=== PATIENT | male | born 1935 | race Caucasian/White ===

== ENCOUNTER → 2016-08-20 | Outpatient (CLI) | payer BC ==
[~2016-08-20] MED LIST: ALLO100T PO; ALPH600C2 PO; AMLO5TAB2 PO; ASPI-589 PO; ASPI325T45 PO; BRIM0.2S OPB; CLB/200 PO; CYAN10005 PO; DOXA2TAB PO; LMGOPS OP; LSN10 PO; POTA20TA16 PO; SIMV10TA2 PO; TNR25 PO; TRIA37.5 PO
[2016-08-20 13:52] LABS: BASO % 0.4 %; BASO ABS # 0.03 K/uL (0-0.2); COMPLETE YES; HEMATOCRIT 43.6 % (42-52); IG% 0.3 %; LYMPH % 20.2 %; LYMPH ABS # 1.49 K/uL (1.2-3.4); MEAN CELL VOLUME 89.2 fL (80-100); MEAN CORPUSCULAR HEMOGLOBIN 30.9 pg (25-34); MEAN CORPUSCULAR HGB CONC 34.6 g/dl (32-36); MEAN PLATELET VOLUME 10.8 fL (7.4-10.4); NEUT % 67.1 %; PLATELET COUNT 198 K/uL (130-400); RED BLOOD COUNT 4.89 M/uL (4.7-6.1); WHITE BLOOD COUNT 7.39 K/uL (4.8-10.8)
[2016-08-20 14:33] LABS: ALT/SGPT 28 U/L (12-78); AST/SGOT 15 U/L (15-37); BLOOD UREA NITROGEN 23 mg/dl (7-18); BUN/CREATININE RATIO 17.9 (10-20); CARBON DIOXIDE 32 mmol/L (21-32); CHLORIDE 101 mmol/L (98-107); GLUCOSE 115 mg/dl (70-99); MAGNESIUM 2.1 mg/dl (1.8-2.4); POTASSIUM 3.5 mmol/L (3.5-5.1); SODIUM 139 mmol/L (136-145)
[2016-08-20 14:41] LABS: ALB/GLOB RATIO 1.2 (0.9-2); ALKALINE PHOSPHATASE 55 U/L (45-117); CHOLESTEROL 135 mg/dl (0-200); CHOLESTEROL/HDL RATIO 2.7; HDL CHOLESTEROL 50 mg/dl; LDL CHOLESTEROL CALCULATED 59 mg/dl; PROSTATE SPECIFIC ANTIGEN 0.025 ng/ml (0.000-4.000); TRIGLYCERIDES 132 mg/dl (0-150); URIC ACID 5.6 mg/dl (2.6-7.2); VERY LOW DENSITY LIPOPROT CALC 26 mg/dl
== END | disposition home or self-care (01) ==
LOC: C.LABBC 09:43
PROVIDERS: ATTEND Family Medicine
DX: I10 Essential (primary) hypertension (principal); I25.10 Atherosclerotic heart disease of native coronary artery without angina pectoris; E53.8 Deficiency of other specified B group vitamins; C61 Malignant neoplasm of prostate; M10.9 Gout, unspecified

== ENCOUNTER → 2016-09-05 | Outpatient (CLI) | payer BC ==
--- NOTE | 2016-09-05 13:45 | DIAGNOSTIC IMAGING REPORT ---
MRI THE LEFT HIP NO CONTRAST CLINICAL HISTORY: Left hip pain COMPARISON STUDY: Conventional radiographic study dated 11/17/2014 FINDINGS: Imaging was performed in sagittal, coronal, and axial planes. There is artifact from surgical clips within the pelvis. There are no areas of marrow replacement to indicate metastatic disease. There are no areas of marrow edema to indicate occult fracture or bone bruise. There is no aggressive avascular necrosis. There is no pathologic joint effusion. There is minimal left peritrochanteric soft tissue edema. IMPRESSION: 1. No evidence of metastatic disease 2. No evidence of occult fracture 3. No evidence of a joint effusion 4. Very minor left-sided peritrochanteric soft tissue edema Electronically signed by: José Miguel Kumar M.D. 09/05/2016 1:44 PM Dictated Date/Time: 09/05/2016 1:41 PM
== END | disposition home or self-care (01) ==
LOC: C.MRIBC 12:26
PROVIDERS: ATTEND Orthopaedic Surgery
DX: M25.552 Pain in left hip (principal)

== ENCOUNTER 2016-10-25 16:38 | Emergency (ER) | payer BC ==
[~2016-10-25] VITALS: Ht 172.7 cm; Wt 93.3 kg
[~2016-10-25 16:38] MED LIST changes: -ASPI-589 PO; -CLB/200 PO; -DOXA2TAB PO; -POTA20TA16 PO
[2016-10-25 16:47] VITALS: TEMP 36.7; Ht 172.7 cm; Wt 93.3 kg
[2016-10-25] MEDS ORDERED: POTA20TA16 PO (17:56)
[2016-10-25] MEDS ORDERED: CLB/200 PO (17:56)
[2016-10-25] MEDS ORDERED: DOXA2TAB PO (17:56)
[2016-10-25] MEDS ORDERED: ASPI-589 PO (17:56)
--- NOTE | 2016-10-25 18:18 | EMERGENCY ROOM VISIT NOTE ---
History Report prepared by Nico: Autumn Barron Under the Supervision of: Dr. Catherine Dodd D.O. First contact with patient: 17:44 Chief Complaint: HYPERTENSION Stated Complaint: VERY HIGH BLOOD PRESSURE History of Present Illness The patient is an 81 year old male who presents to the Emergency Room with complaints of persistent hypertension that started SCARFER. Associated symptoms include increased fatigue, increased urination, and headaches. The patient was recently placed on a new hypertension medication by Dr. See ([facility]) . He states that he was at the grocery store yesterday when he decided to use a blood pressure machine to check his blood pressure since starting this new medication. His pressure was 159/72 at this time. When the patient got home, he rechecked his blood pressure twice more which read 189/117 and 205/110. The patient has been treated for hypertension for the past 26 years. His last recorded blood pressure in the ED is 168/84. The patient denies chest pain, shortness of breath, or any additional associated symptoms. Source of History: patient Onset: SCARFER Position: other (Global ) Timing: other (Persistent ) Modifying Factors (Worsening): other (None) Associated Symptoms: + fatigue, + headache, No SOB, No chest pain Review of Systems See above for pertinent positives & negatives. A total of 10 systems reviewed and were otherwise negative. Past Medical & Surgical Medical Problems: (1) HTN (hypertension) Surgical Problems: (1) Status post double vessel coronary artery bypass Family History Patient reports no known family medical history. Social History Smoking Status: Never Smoker Drug Use: none Marital Status: Housing Status: lives with significant other Occupation Status: retired Current/Historical Medications Scheduled Allopurinol (Zyloprim), 100 MG PO QAM Alpha-Lipoic Acid (Thioctic Ac (Alpha Lipoic Acid), 600 MG PO BID Aspirin (Aspirin Adult Low Dose), 81 MG PO HS Bimatoprost (Lumigan), 1 DROP OP HS Brimonidine Tartrate-Timolol M (Combigan), 1 DROP OPB BID Celecoxib (CeleBREX), 200 MG PO QAM Cyanocobalamin (Vitamin B-12), 1,000 MCG PO QAM Doxazosin Mesylate (Cardura), 1 MG PO HS Potassium Ext Rel (Klor-Con), 20 MEQ PO NOON Simvastatin (Zocor), 10 MG PO HS Triamterene/Hctz (Dyazide 37.5MG/25MG), 1 TAB PO QAM Allergies Coded Allergies: No Known Allergies (Unverified , 10/25/16) Physical Exam Vital Signs Date Time Temp Pulse Resp B/P Pulse Ox O2 Delivery O2 Flow Rate FiO2 10/25/16 21:09 52 18 179/89 97 Room Air 10/25/16 19:45 53 18 150/78 97 Room Air 10/25/16 18:14 68 18 168/84 99 Room Air 10/25/16 16:47 36.7 66 16 200/88 98 Room Air Physical Exam GENERAL: alert, well appearing, well nourished, no distress, non-toxic EYE EXAM: normal conjunctiva, PERRL and EOM's grossly intact OROPHARYNX: no exudate, no erythema, lips, buccal mucosa, and tongue normal and mucous membranes are moist NECK: supple, no nuchal rigidity, no adenopathy, non-tender LUNGS: Clear to auscultation. Normal chest wall mechanics HEART: no murmurs, S1 normal and S2 normal ABDOMEN: abdomen soft, non-tender, normo-active bowel sounds, no masses, no rebound or guarding. BACK: Back is symmetrical on inspection and there is no deformity, no midline tenderness, no CVA tenderness. SKIN: no rashes and no bruising UPPER EXTREMITIES: upper extremities are grossly normal. LOWER EXTREMITIES: No pitting edema. NEURO EXAM: Normal sensorium, no gross weakness Medical Decision & Procedures ER Provider Diagnostic Interpretation: Xray results per the radiologist and my interpretation. Other results have been interpreted by the radiologist and reviewed by me. HEAD CT NONCONTRAST CT DOSE: 1035.81 mGycm HISTORY: Hypertension. Headache. htn, alvarenga TECHNIQUE: Multiaxial CT images of the head were performed without the use of intravenous contrast. Comparison: None. Findings: The paranasal sinuses and mastoid air cells are clear. The calvarium and skull base are intact. The ventricles and sulci are within normal limits. There is no mass, hematoma, midline shift, or acute infarct. Impression: No acute intracranial abnormality. Electronically signed by: Shiv Ramsey M.D. 10/25/2016 7:01 PM Dictated Date/Time: 10/25/2016 7:01 PM CHEST ONE VIEW PORTABLE CLINICAL HISTORY: htn dyspnea COMPARISON STUDY: No previous studies for comparison. FINDINGS: The bones soft tissues and hemidiaphragms are normal. The cardiomediastinal silhouette is normal. The lungs are clear. The pulmonary vasculature is normal. IMPRESSION: Negative chest. Electronically signed by: Shiv Ramsey M.D. 10/25/2016 6:35 PM Dictated Date/Time: 10/25/2016 6:35 PM Laboratory Results 10/25/16 18:26 Red Blood Count 4.58, Mean Corpuscular Volume 88.6, Mean Corpuscular Hemoglobin 30.1, Mean Corpuscular Hemoglobin Concent 34.0, Mean Platelet Volume 10.1, Neutrophils (%) (Auto) 58.1, Lymphocytes (%) (Auto) 26.2, Monocytes (%) (Auto) 11.4, Eosinophils (%) (Auto) 3.6, Basophils (%) (Auto) 0.5, Neutrophils # (Auto ) 3.52, Lymphocytes # (Auto) 1.59, Monocytes # (Auto) 0.69, Eosinophils # (Auto ) 0.22, Basophils # (Auto) 0.03 10/25/16 18:26 Test 10/25/16 18:26 10/25/16 19:45 White Blood Count 6.06 K/uL (4.8-10.8) Red Blood Count 4.58 M/uL (4.7-6.1) Hemoglobin 13.8 g/dL (14.0-18.0) Hematocrit 40.6 % (42-52) Mean Corpuscular Volume 88.6 fL (80-100) Mean Corpuscular Hemoglobin 30.1 pg (25-34) Mean Corpuscular Hemoglobin Concent 34.0 g/dl (32-36) Platelet Count 170 K/uL (130-400) Mean Platelet Volume 10.1 fL (7.4-10.4) Neutrophils (%) (Auto) 58.1 % Lymphocytes (%) (Auto) 26.2 % Monocytes (%) (Auto) 11.4 % Eosinophils (%) (Auto) 3.6 % Basophils (%) (Auto) 0.5 % Neutrophils # (Auto) 3.52 K/uL (1.4-6.5) Lymphocytes # (Auto) 1.59 K/uL (1.2-3.4) Monocytes # (Auto) 0.69 K/uL (0.11-0.59) Eosinophils # (Auto) 0.22 K/uL (0-0.5) Basophils # (Auto) 0.03 K/uL (0-0.2) RDW Standard Deviation 47.4 fL (36.4-46.3) RDW Coefficient of Variation 14.5 % (11.5-14.5) Immature Granulocyte % (Auto) 0.2 % Immature Granulocyte # (Auto) 0.01 K/uL (0.00-0.02) Anion Gap 6.0 mmol/L (3-11) Est Creatinine Clear Calc Drug Dose 57.4 ml/min Estimated GFR () 72.1 Estimated GFR (Non- 62.2 BUN/Creatinine Ratio 19.5 (10-20) Calcium Level 8.6 mg/dl (8.5-10.1) Total Bilirubin 0.6 mg/dl (0.2-1) Aspartate Amino Transf (AST/SGOT) 13 U/L (15-37) Alanine Aminotransferase (ALT/SGPT) 23 U/L (12-78) Alkaline Phosphatase 50 U/L (45-117) Troponin I < 0.015 ng/ml (0-0.045) Pro-B-Type Natriuretic Peptide 356 pg/ml (0-1800) Total Protein 6.3 gm/dl (6.4-8.2) Albumin 3.5 gm/dl (3.4-5.0) Globulin 2.8 gm/dl (2.5-4.0) Albumin/Globulin Ratio 1.3 (0.9-2) Urine Color YELLOW Urine Appearance CLEAR (CLEAR) Urine pH 6.0 (4.5-7.5) Urine Specific [place] 1.005 (1.000-1.030) Urine Protein NEG (NEG) Urine Glucose (UA) NEG (NEG) Urine Ketones NEG (NEG) Urine Occult Blood NEG (NEG) Urine Nitrite NEG (NEG) Urine Bilirubin NEG (NEG) Urine Urobilinogen NEG (NEG) Urine Leukocyte Esterase NEG (NEG) Laboratory results per my review. ECG Indication: other (Hypertension ) Rate (beats per minute): 52 Rhythm: sinus bradycardia Findings: other (Normal axis, normal intervals, inverted t wave lead 3, q wave lead 3) ED Course 3752: The patient was evaluated in room A3. A complete history and physical exam was performed. 2014: Upon reevaluation, the patient is no longer experiencing symptoms. We are awaiting urinalysis results at this time. 2057: Upon reevaluation, the patient is feeling better. I discussed the findings and the treatment plan with the patient. He verbalizes agreement and understanding. He was discharged home. Medical Decision Differential diagnosis: Etiologies such as benign hypertension, hypertensive emergency, cardiovascular pathology, pheochromocytoma, electrolyte abnormality, renal disease, endorgan damage, as well as others were entertained. Pt's BP improved here without additional meds. Doubt hypertensive emergency, acs, cva, dissection, pneumothorax/effusion/tamponade. no evidence of infectious etiology. Pt well appearing. Labs and imaging reassuring. No further sx in the ER while being observed. Discussed close f/u with cardiology. Discussed calibration of home BP machine, how often to check BP, concerning readings, sx to watch/return for, he verbalized understanding and was agreeable with plan. Impression Primary Impression: HTN (hypertension) Scribe Attestation The scribe's documentation has been prepared under my direction and personally reviewed by me in its entirety. I confirm that the note above accurately reflects all work, treatment, procedures, and medical decision making performed by me. Departure Information Dispostion Home / Self-Care Referrals Jensen Sharma D.O.Int.Med. (PCP) Forms HOME CARE DOCUMENTATION FORM, IMPORTANT VISIT INFORMATION, WORK / SCHOOL INSTRUCTIONS Patient Instructions My [facility] Additional Instructions Please call and follow-up with your malter operator. Please discuss your blood pressure readings with them and your current medications. Please don't check your blood pressure more than once a day. If you have any readings >180/100, develop chest pain or pressure, headache, vision changes, dizziness, trouble breathing, fevers, vomiting, or you have any other new or concerning symptoms, please return to the emergency room. Problem Qualifiers Primary Impression: HTN (hypertension) Hypertension type: essential hypertension Qualified Codes: I10 - Essential ( primary) hypertension
--- NOTE | 2016-10-25 18:37 | DIAGNOSTIC IMAGING REPORT ---
CHEST ONE VIEW PORTABLE CLINICAL HISTORY: htn dyspnea COMPARISON STUDY: No previous studies for comparison. FINDINGS: The bones soft tissues and hemidiaphragms are normal. The cardiomediastinal silhouette is normal. The lungs are clear. The pulmonary vasculature is normal. IMPRESSION: Negative chest. Electronically signed by: Sihv Ramsey M.D. 10/25/2016 6:35 PM Dictated Date/Time: 10/25/2016 6:35 PM
[2016-10-25 18:39] LABS: BASO % 0.5 %; BASO ABS # 0.03 K/uL (0-0.2); COMPLETE YES; EOS % 3.6 %; HEMATOCRIT 40.6 % (42-52); IG% 0.2 %; LYMPH % 26.2 %; LYMPH ABS # 1.59 K/uL (1.2-3.4); MEAN CELL VOLUME 88.6 fL (80-100); MEAN CORPUSCULAR HEMOGLOBIN 30.1 pg (25-34); MEAN PLATELET VOLUME 10.1 fL (7.4-10.4); MONO % 11.4 %; NEUT % 58.1 %; PLATELET COUNT 170 K/uL (130-400); RED BLOOD COUNT 4.58 M/uL (4.7-6.1); WHITE BLOOD COUNT 6.06 K/uL (4.8-10.8)
[2016-10-25 18:58] LABS: BLOOD UREA NITROGEN 21 mg/dl (7-18); BUN/CREATININE RATIO 19.5 (10-20); CALCIUM 8.6 mg/dl (8.5-10.1); CARBON DIOXIDE 29 mmol/L (21-32); CHLORIDE 105 mmol/L (98-107); GLUCOSE 88 mg/dl (70-99); POTASSIUM 3.8 mmol/L (3.5-5.1); SODIUM 140 mmol/L (136-145)
--- NOTE | 2016-10-25 19:03 | DIAGNOSTIC IMAGING REPORT ---
HEAD CT NONCONTRAST CT DOSE: 1035.81 mGycm HISTORY: Hypertension. Headache. htn, alvarenga TECHNIQUE: Multiaxial CT images of the head were performed without the use of intravenous contrast. Comparison: None. Findings: The paranasal sinuses and mastoid air cells are clear. The calvarium and skull base are intact. The ventricles and sulci are within normal limits. There is no mass, hematoma, midline shift, or acute infarct. Impression: No acute intracranial abnormality. Electronically signed by: Shiv Ramsey M.D. 10/25/2016 7:01 PM Dictated Date/Time: 10/25/2016 7:01 PM
[2016-10-25 19:04] LABS: ALB/GLOB RATIO 1.3 (0.9-2); ALKALINE PHOSPHATASE 50 U/L (45-117); ALT/SGPT 23 U/L (12-78); AST/SGOT 13 U/L (15-37)
[2016-10-25 20:21] LABS: URINE APPEARANCE CLEAR (CLEAR); URINE BILIRUBIN NEG (NEG); URINE COLOR YELLOW; URINE NITRITE NEG (NEG); URINE SPECIFIC GRAVITY 1.005 (1.000-1.030); UROBILINOGEN NEG (NEG); ZZUR CULT IF INDIC CLEAN CATCH NO
[2016-10-25 20:29] LABS: MANUAL MICROSCOPIC REQUIRED? NO; REVIEW REQ? NO
[2016-10-25 21:09] VITALS: BP 179/89; PULSE 52; O2SAT 97
== END 2016-10-25 21:09 | disposition home or self-care (01) ==
LOC: C.EDB 16:39 → C.EDA 21:09
DX: I10 Essential (primary) hypertension (principal); R53.83 Other fatigue; R35.0 Frequency of micturition; R51 Headache; R00.1 Bradycardia, unspecified; Z79.82 Long term (current) use of aspirin; Z79.899 Other long term (current) drug therapy

== ENCOUNTER 2016-10-26 13:05 | Emergency (ER) | payer BC ==
[~2016-10-26] VITALS: Ht 172.7 cm; Wt 92.0 kg
[~2016-10-26 13:05] MED LIST changes: -AMLO5TAB2 PO; +ASPI-589 PO; -ASPI325T45 PO; +CLB/200 PO; +DOXA2TAB PO; -LSN10 PO; +POTA20TA16 PO; -TNR25 PO
[2016-10-26 13:10] VITALS: PULSE 75; TEMP 36.9; O2SAT 96; Ht 172.7 cm; Wt 92.0 kg
[2016-10-26 13:17] VITALS: BP 134/70
== END 2016-10-26 13:18 | disposition left against medical advice (07) ==
LOC: C.EDB 13:06
DX: I10 Essential (primary) hypertension (principal)

== ENCOUNTER → 2017-01-23 | Outpatient (CLI) | payer BC ==
[2017-01-23 11:17] LABS: BLOOD UREA NITROGEN 23 mg/dl (7-18); BUN/CREATININE RATIO 17.4 (10-20); CALCIUM 8.6 mg/dl (8.5-10.1); CARBON DIOXIDE 27 mmol/L (21-32); CHLORIDE 109 mmol/L (98-107); GLUCOSE 111 mg/dl (70-99); POTASSIUM 3.7 mmol/L (3.5-5.1); SODIUM 142 mmol/L (136-145)
== END | disposition home or self-care (01) ==
LOC: C.LABBC 08:02
PROVIDERS: ATTEND Internal Medicine Cardiovascular Disease
DX: R60.9 Edema, unspecified (principal); I25.10 Atherosclerotic heart disease of native coronary artery without angina pectoris; I10 Essential (primary) hypertension

== ENCOUNTER → 2017-08-14 | Outpatient (CLI) | payer BC ==
[2017-08-14 13:38] LABS: BASO % 0.5 %; BASO ABS # 0.04 K/uL (0-0.2); EOS % 2.1 %; EOS ABS # 0.16 K/uL (0-0.5); HEMATOCRIT 42.6 % (42-52); HEMOGLOBIN 14.3 g/dL (14.0-18.0); IG# 0.01 K/uL (0.00-0.02); LYMPH % 22.8 %; LYMPH ABS # 1.76 K/uL (1.2-3.4); MEAN CELL VOLUME 90.8 fL (80-100); MEAN CORPUSCULAR HEMOGLOBIN 30.5 pg (25-34); MEAN CORPUSCULAR HGB CONC 33.6 g/dl (32-36); MEAN PLATELET VOLUME 11.1 fL (7.4-10.4); MONO % 10.1 %; MONO ABS # 0.78 K/uL (0.11-0.59); NEUT % 64.4 %; NEUT ABS # 4.98 K/uL (1.4-6.5); PLATELET COUNT 185 K/uL (130-400); RED CELL DISTRIBUTION WIDTH CV 14.6 % (11.5-14.5); RED CELL DISTRIBUTION WIDTH SD 47.8 fL (36.4-46.3); WHITE BLOOD COUNT 7.73 K/uL (4.8-10.8)
[2017-08-14 14:05] LABS: HEMOGLOBIN A1C 5.9 % (4.5-5.6)
[2017-08-14 14:27] LABS: ALBUMIN 3.7 gm/dl (3.4-5.0); ALT/SGPT 26 U/L (12-78); BLOOD UREA NITROGEN 27 mg/dl (7-18); CARBON DIOXIDE 27 mmol/L (21-32); CHOLESTEROL 120 mg/dl (0-200); CREATININE 1.22 mg/dl (0.60-1.40); GLUCOSE 92 mg/dl (70-99); SODIUM 137 mmol/L (136-145)
[2017-08-14 14:32] LABS: ALKALINE PHOSPHATASE 54 U/L (45-117); AST/SGOT 18 U/L (15-37); LDL CHOLESTEROL CALCULATED 58 mg/dl; TOTAL PROTEIN 6.9 gm/dl (6.4-8.2)
== END | disposition home or self-care (01) ==
LOC: C.LABBC 11:03
PROVIDERS: ATTEND Internal Medicine
DX: I25.10 Atherosclerotic heart disease of native coronary artery without angina pectoris (principal); E78.5 Hyperlipidemia, unspecified; I10 Essential (primary) hypertension; I12.9 Hypertensive chronic kidney disease with stage 1 through stage 4 chronic kidney disease, or unspecified chronic kidney disease; C61 Malignant neoplasm of prostate; N18.3 Chronic kidney disease, stage 3 (moderate); E53.8 Deficiency of other specified B group vitamins

== ENCOUNTER 2017-10-18 11:53 | Emergency (ER) | payer BC ==
[~2017-10-18] VITALS: Ht 172.7 cm; Wt 91.9 kg
[~2017-10-18 11:53] MED LIST changes: +POTA-639 PO; -POTA20TA16 PO
[2017-10-18 12:00] VITALS: TEMP 36.6; Ht 172.7 cm; Wt 91.9 kg
--- NOTE | 2017-10-18 12:24 | EMERGENCY ROOM VISIT NOTE ---
History Report prepared by Nico: Gillian Downey Under the Supervision of: Dr. Antoine Avalos M.D. 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 He states he missed a step, slipped, and felt a pain he describes as "a really deep Adryan horse." He denies hitting his head, any chest pain, or difficulty breathing. He reports he came into the ED today because his PCP stated he might have a 5% chance of having a blood clot and this morning, he "felt the Adryan horse again." He states stretching his leg out worsens his pain. Patient states he came to the emergency department for ultrasound to rule out blood clot. 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 A total of ten systems were reviewed and were otherwise negative. Past Medical & Surgical Medical Problems: (1) HTN (hypertension) Surgical Problems: (1) Status post double vessel coronary artery bypass Family History Patient reports no known family medical history. Social History Smoking Status: Never Smoker Drug Use: none Marital Status: Housing Status: lives with significant other Occupation Status: retired Current/Historical Medications Scheduled Allopurinol (Zyloprim), 100 MG PO QAM Alpha-Lipoic Acid (Thioctic Ac (Alpha Lipoic Acid), 600 MG PO BID Amlodipine (Norvasc), 1 TAB PO DAILY Aspirin (Aspirin Adult Low Dose), 81 MG PO HS Bimatoprost (Lumigan), 1 DROP OP HS Brimonidine Tartrate-Timolol M (Combigan), 1 DROP OPB BID Celecoxib (CeleBREX), 200 MG PO QAM Cyanocobalamin (Vitamin B-12), 1,000 MCG PO QAM Doxazosin Mesylate (Cardura), 1 MG PO HS Potassium Ext Rel (Klor-Con), 20 MEQ PO NOON Simvastatin (Zocor), 10 MG PO HS Torsemide (Torsemide), 5 MG PO AMPM Triamterene/Hctz (Dyazide 37.5MG/25MG), 1 TAB PO QAM Allergies Coded Allergies: No Known Allergies (Unverified , 10/18/17) Physical Exam Vital Signs Date Time Temp Pulse Resp B/P (MAP) Pulse Ox O2 Delivery O2 Flow Rate FiO2 10/18/17 14:03 56 18 176/81 96 10/18/17 12:00 36.6 61 20 162/77 96 Room Air Physical Exam Physical Exam GENERAL: He is oriented to person, place, and time. He appears well-developed and well-nourished. He does not appear distressed. ____ HENT: Exam performed. Head: Normocephalic and atraumatic. Right Ear: External ear normal. No mastoid tenderness. Left Ear: External ear normal. No mastoid tenderness. Mouth/Throat: The oropharynx is clear and moist. No trismus in the jaw. No dental abscesses or uvula swelling. No oropharyngeal exudate or tonsillar abscesses. ____ EYES: Conjunctivae and EOM are normal. Pupils are equal, round, and reactive to light. Right eye exhibits no discharge. Left eye exhibits no discharge. No scleral icterus. ____ NECK: Normal range of motion. Neck supple. No JVD present. No spinous process tenderness present. No carotid bruit present. No rigidity. No tracheal deviation and normal range of motion present. No Brudzinski's sign and no Kernig 's sign noted. ____ CV: Normal rate, regular rhythm, normal heart sounds and intact distal pulses. There is no peripheral edema. Palpable radial pulses bue. ____ PULM/CHEST: Effort normal and breath sounds normal. No respiratory distress. No stridor. He has no wheezes. He has no rales. Chest Wall: He exhibits no tenderness. ____ ABD: The abdomen is soft. Bowel sounds are normal. He has no distension. No mass is present. There is no tenderness. There is no rebound, no guarding, no Gaxiola's sign and no tenderness at McBurney's point. Rovsig negative MUSC/SKEL: Normal range of motion. There is no peripheral edema, tenderness or deformity. Palpable DP and PT pulses bilateral lower extremities. Pain on the left calf and the left palpatal area. Palpable DP and DT pulses in the LE LYMPH: No cervical adenopathy. ____ NEURO: He is alert and oriented to person, place, and time. He has normal strength. No cranial nerve deficit or sensory deficit. Coordination and gait normal. GCS eye subscore is 4. GCS verbal subscore is 5. GCS motor subscore is 6. Cerebellar tests wnl. ____ SKIN: Skin is warm and dry. He is not diaphoretic. ____ PSYCH: He has a normal mood and affect. His behavior is normal. Judgment and thought content normal. ____ Medical Decision & Procedures ER Provider Diagnostic Interpretation: Radiology results as stated below per my review and radiologist interpretation: ULTRASOUND L VENOUS DOPP LOWER EXT UNILAT CLINICAL HISTORY: Left leg swelling COMPARISON STUDY: No previous studies for comparison. FINDINGS: Real-time and color flow Doppler imaging were performed. Flow was seen within the femoral, popliteal and calf veins with no intraluminal thrombus demonstrated. The saphenous vein is patent. IMPRESSION: No evidence of left lower extremity DVT. Electronically signed by: José Miguel Kumar M.D. 10/18/2017 1:24 PM Dictated Date/Time: 10/18/2017 1:24 PM ED Course 1220: The patient was evaluated in room B120. A complete history and physical exam was performed. 1357 vital signs stable. Imaging within normal limits, no DVT. DISCHARGE - Plan of care discussed with patient and questions answered. The patient was given both verbal and printed discharge instructions. The patient verbalized understanding and ability to comply. The patient is to seek outpatient follow up as noted in the discharge instructions. The patient verbalized understanding and ability to comply. The patient is discharged in stable condition. The patient was instructed to return for worsening symptoms. Medical Decision vital signs stable. Imaging within normal limits, no DVT. DISCHARGE - Plan of care discussed with patient and questions answered. The patient was given both verbal and printed discharge instructions. The patient verbalized understanding and ability to comply. The patient is to seek outpatient follow up as noted in the discharge instructions. The patient verbalized understanding and ability to comply. The patient is discharged in stable condition. The patient was instructed to return for worsening symptoms. Medication Reconcilliation Current Medication List: was personally reviewed by me Blood Pressure Screening Patient's blood pressure: Elevated blood pressure Blood pressure disposition: Elevated BP felt to be situational Impression Primary Impression: Leg pain Scribe Attestation The scribe's documentation has been prepared under my direction and personally reviewed by me in its entirety. I confirm that the note above accurately reflects all work, treatment, procedures, and medical decision making performed by me. The chart was completed utilizing [email or web address] Speech voice recognition software. Grammatical errors, random word insertions, pronoun errors, and incomplete sentences are an occasional consequence of this system due to software limitations, ambient noise, and hardware issues. Any formal questions or concerns about the content, text, or information contained within the body of this dictation should be directly addressed to the physician for clarification. Departure Information Dispostion Home / Self-Care Referrals Daniel Herrera M.D. (PCP) Forms HOME CARE DOCUMENTATION FORM, IMPORTANT VISIT INFORMATION Patient Instructions My [facility] Problem Qualifiers Primary Impression: Leg pain Laterality: unspecified laterality Qualified Codes: M79.606 - Pain in leg, unspecified
[2017-10-18] MEDS ORDERED: AMLO-110 PO (12:35)
[2017-10-18] MEDS ORDERED: TORS5TAB10 PO (12:35)
--- NOTE | 2017-10-18 13:26 | DIAGNOSTIC IMAGING REPORT ---
ULTRASOUND L VENOUS DOPP LOWER EXT UNILAT CLINICAL HISTORY: Left leg swelling COMPARISON STUDY: No previous studies for comparison. FINDINGS: Real-time and color flow Doppler imaging were performed. Flow was seen within the femoral, popliteal and calf veins with no intraluminal thrombus demonstrated. The saphenous vein is patent. IMPRESSION: No evidence of left lower extremity DVT. Electronically signed by: José Miguel Kumar M.D. 10/18/2017 1:24 PM Dictated Date/Time: 10/18/2017 1:24 PM
[2017-10-18 14:03] VITALS: BP 176/81; PULSE 56; O2SAT 96
== END 2017-10-18 14:04 | disposition home or self-care (01) ==
LOC: C.EDB 11:55
DX: M79.605 Pain in left leg (principal); I10 Essential (primary) hypertension; Z95.1 Presence of aortocoronary bypass graft; Z79.82 Long term (current) use of aspirin; Z79.899 Other long term (current) drug therapy

== ENCOUNTER 2022-11-07 08:14 | Inpatient (IN) ==
--- NOTE | 2022-11-07 09:09 | Emergency Department Note ---
Impression & Plan Dizziness, Acute CVA (cerebrovascular accident), HTN (hypertension) ED Provider Note ED Provider Note NAME: FRANSISCO MCKINNEY AGE:87 SEX: Male : 1935 ARRIVES VIA: Private vehicle INFORMANT: Patient ED PROVIDER(s): Catherine Dodd DO CHIEF COMPLAINT: Dizziness HPI: This is an 87-year-old male presents emergency department due to concern for worsening dizziness. Patient states he first began noticing dizziness with position changes approximately 2 weeks ago. Eh describes this as "spinning". No hx of vertigo. He states since that time the episodes have become more frequent and more severe in nature. He states he now also notices them while laying down and that they are worse with changes in position. Patient denies any recent change in medications or recent illness. He denies any accompanying headaches, vision changes, tinnitus, chest pain, palpitations, or trouble breathing. Patient denies any change in urine or stools. 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 PAST MEDICAL HISTORY:See Below PAST SURGICAL HISTORY:See Below FAMILY HISTORY:See Below SOCIAL HISTORY:See Below HOME MEDICATIONS:See Below ALLERGIES:See Below VITALS:See Below PHYSICAL EXAMINATION: GENERAL: alert, well appearing, well nourished, no distress, non-toxic EYE EXAM: normal conjunctiva, PERRL and EOM's grossly intact, no nystagmus EARS: TMs clear bilaterally without erythema or effusion OROPHARYNX: no exudate, no erythema, lips, buccal mucosa, and tongue normal and mucous membranes are moist NECK: supple, no nuchal rigidity, no adenopathy, non-tender LUNGS: Clear to auscultation. Normal chest wall mechanics, no w/r/r HEART: no murmurs, S1 normal and S2 normal ABDOMEN: abdomen soft, non-tender, normo-active bowel sounds, no masses, no rebound or guarding. BACK: Back is symmetrical on inspection and there is no deformity, no midline tenderness, no CVA tenderness. SKIN: no rashes, petechiae, orbruising UPPER EXTREMITIES: upper extremities are grossly normal. FROM, nml pulses b/l. LOWER EXTREMITIES: No pitting edema. FROM, nml pulses b/l. NEURO EXAM: Normal sensorium, cranial nerves II-XII grossly intact, normal speech, no facial droop,nogross weakness of arms, no gross weakness of legs. Gross sensation intact. No ataxia. Negative pronator drift although patient does appear unsteady with eyes closed and arms outstretched. Normal finger- nose, normal [id number]. Patient states even while seated on the side of the bed remaining still he feels dizzy Vital Signs: reviewed and remarkable Differential Diagnosis: CVA, ICH, BPPV, viral labyrinthitis, dysrhythmia, DOMINGA, electrolyte abnormalities, medication ADR, ACS, occult infection, as well as others were considered MEDICAL DECISION MAKING: THis is a 87 yo male who presents with worsening dizziness. VS stable and pt afebrile. Labs drawn and sent, IV established, EKG and CXR performed and interpreted at bedside, and patient placed on telemetry. Patient sent for CT/CTA and given meclizine which provided minimal improvement. I discussed CT results with neurology who recommended MR brain additionally due to risk of posterior CVA. Patient already takes asa daily, no other anticoagulation. Patient ultimately sent for MRI. While awaiting MRI he noted to have worsening hypertension. He was initially given an additional dose orally of his usual meds for HTN at home. After worsening htn noted, he was given several doses of IV hydralazine. MR results discussed with neurology again and then with the patient. Case discussed with hospitalist for additional evaluation. Consultation(s): 1220: Discussed with Dr. Layne. 1640: Updated on MRI results. Recommends admission for monitoring, echo, lipid panel, medication optimization, etc. 1702: Discussed with Dr. Mcknight. ER Treatment Provided: See below Diagnostics Interpreted By Me: -ECG: Sinus timothy at 59, LBBB, nml axis, no acute ST/T wave changes -Cardiac Monitoring: An order was placed for continuous cardiac monitoring. The monitor shows a rate of 62 with normal sinus rhythm. -Laboratory studies: As stated above and show below. -Imaging studies: X-ray Chest: A single view study of the chest was reviewed and was negative for cardiomegaly, focal infiltrate, effusion, pulmonary edema, or wide mediastinum. Triage Nursing Note Reviewed Prior/Outside Records Reviewed - prior cardiology note reviewed Procedures: [] Critical Care: Critical care of 52 min performed to assess and manage high likelihood of life- threatening hypertension involving labs and imaging performed with assessment to evaluate htn and dizziness diagnosis with frequent reassessment. This time includes bedside time, treatment discussions with patient/family/consultants, documentation time and excludes procedure time. Past Med/Surg History Medical History ASCVD (arteriosclerotic cardiovascular disease) Effusion, right knee Erectile dysfunction Glaucoma, pigmentary Glucose intolerance (impaired glucose tolerance) Gout Hypertensive kidney disease with CKD stage III Idiopathic small fiber peripheral neuropathy Malignant neoplasm of prostate Right knee DJD Stage 3 chronic kidney disease Vitamin B12 deficiency Surgical History H/O eye surgery 1969 and 1979 detached retina and trabeculectomy H/O prostatectomy retropubic radical with nerve sparing Cinebar- Dr. 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 Family History Father FHx: kidney cancer Mother Ischemic stroke Hyperlipidemia associated with type 2 diabetes mellitus Glaucoma Hypertension Sister Chronic bronchitis Glaucoma Grandfather Ischemic stroke Grandmother Heart disease Grandfather History of appendectomy Grandmother Heart disease Son Glaucoma Unknown Colon carcinoma Social History Smoking Status: Never smoker Hx Alcohol Use: Yes Preferred Language: Turkmen current occupational status: retired Feels Safe at Home: Yes caffeine: Yes Allergies Allergies Allergy/AdvReac Type Severity Reaction Status Date / Time No Known Drug Allergies Allergy Verified 10/28/22 14:13 Home Meds Home Medications Medication Instructions Recorded Confirmed levobunolol 0.5 % eye drops 1 drp ophthalmic (eye) DAILY 06/05/22 11/07/22 brinzolamide 1 %-brimonidine 0.2 % 1 drp ophthalmic (eye) TID 11/07/22 11/07/22 eye drops,suspension (Simbrinza) doxazosin 2 mg tablet 2 mg PO HS 11/07/22 11/07/22 magnesium oxide 250 mg PO HS 11/07/22 11/07/22 psyllium 1 packet PO DAILY 11/07/22 11/07/22 simvastatin 10 mg tablet 10 mg PO HS 11/07/22 11/07/22 Previous Rx's Medication Instructions Recorded alpha lipoic acid 600 mg capsule 600 mg PO BID #180 caps 01/02/19 aspirin 81 mg tablet,delayed 81 mg PO DAILY #90 tabs 01/02/19 release bimatoprost 0.01 % eye drops 1 drops ophthalmic (eye) DAILY 01/02/19 #7.5 mL cyanocobalamin (vitamin B-12) 1,000 mcg PO DAILY #90 tabs 01/02/19 1,000 mcg tablet sodium chloride 2 % eye drops 1 drops ophthalmic (eye) QID #15 mL 01/02/19 allopurinol 100 mg tablet 100 mg PO DAILY #90 tabs 11/08/21 amlodipine 5 mg tablet 5 mg PO DAILY #90 tabs 11/08/21 potassium chloride 20 mEq 20 meq PO DAILY #90 tabs 02/19/22 tablet,extended release torsemide 20 mg tablet 20 mg PO DAILY #90 tabs 09/18/22 amlodipine 2.5 mg tablet 2.5 mg PO DAILY #90 tabs 10/30/22 Results & Data (ED) Vital Signs Vital Signs - 24 hr 11/07/22 08:29 11/07/22 09:01 11/07/22 11:11 Temperature 36.5 C Temperature Source Oral Pulse Rate 64 61 Pulse Rate [Apical] 53 L Pulse Rate from SpO2 Sensor Pulse Rhythm Regular Pulse Rhythm [Apical] Regular Pulse Strength Normal Respiratory Rate 16 15 Respiratory Effort / Characteristics Non-Labored Spontaneous Non-Labored Spontaneous Respiratory Depth Normal Normal Respiratory Pattern Regular Regular Blood Pressure 143/87 H Blood Pressure [Right Arm] 193/73 H Blood Pressure Mean 105 Blood Pressure Mean [Right Arm] 113 Blood Pressure Position Sitting Blood Pressure Position [Right Arm] Pulse Oximetry 98 95 Oxygen Delivery Method Room Air Room Air Sepsis Recent Fever Within 48 Hours No Sepsis New/Unexplained Change in Mental Status No Sepsis Action Taken by Nursing No Action Required 11/07/22 11:55 11/07/22 13:08 11/07/22 08:59 Temperature Temperature Source Pulse Rate 64 60 Pulse Rate [Apical] 56 L Pulse Rate from SpO2 Sensor Pulse Rhythm Pulse Rhythm [Apical] Pulse Strength Respiratory Rate 16 19 Respiratory Effort / Characteristics Non-Labored Spontaneous Respiratory Depth Normal Respiratory Pattern Regular Blood Pressure Blood Pressure [Right Arm] 194/77 H Blood Pressure Mean Blood Pressure Mean [Right Arm] 116 Blood Pressure Position Blood Pressure Position [Right Arm] Sitting Pulse Oximetry 97 Oxygen Delivery Method Room Air Sepsis Recent Fever Within 48 Hours Sepsis New/Unexplained Change in Mental Status Sepsis Action Taken by Nursing 11/07/22 09:00 11/07/22 09:30 11/07/22 10:12 Temperature Temperature Source Pulse Rate 60 53 L 56 L Pulse Rate [Apical] Pulse Rate from SpO2 Sensor Pulse Rhythm Pulse Rhythm [Apical] Pulse Strength Respiratory Rate 15 15 15 Respiratory Effort / Characteristics Respiratory Depth Respiratory Pattern Blood Pressure Blood Pressure [Right Arm] Blood Pressure Mean Blood Pressure Mean [Right Arm] Blood Pressure Position Blood Pressure Position [Right Arm] Pulse Oximetry Oxygen Delivery Method Sepsis Recent Fever Within 48 Hours Sepsis New/Unexplained Change in Mental Status Sepsis Action Taken by Nursing 11/07/22 10:30 11/07/22 11:00 11/07/22 11:10 Temperature Temperature Source Pulse Rate 50 L 52 L Pulse Rate [Apical] Pulse Rate from SpO2 Sensor Pulse Rhythm Pulse Rhythm [Apical] Pulse Strength Respiratory Rate 16 20 Respiratory Effort / Characteristics Respiratory Depth Respiratory Pattern Blood Pressure 199/71 H Blood Pressure [Right Arm] Blood Pressure Mean 113 Blood Pressure Mean [Right Arm] Blood Pressure Position Blood Pressure Position [Right Arm] Pulse Oximetry Oxygen Delivery Method Sepsis Recent Fever Within 48 Hours Sepsis New/Unexplained Change in Mental Status Sepsis Action Taken by Nursing 11/07/22 11:10 11/07/22 11:11 11/07/22 11:11 Temperature Temperature Source Pulse Rate 53 L 54 L Pulse Rate [Apical] Pulse Rate from SpO2 Sensor 52 L 54 L Pulse Rhythm Pulse Rhythm [Apical] Pulse Strength Respiratory Rate 16 18 Respiratory Effort / Characteristics Respiratory Depth Respiratory Pattern Blood Pressure 193/73 H Blood Pressure [Right Arm] Blood Pressure Mean 113 Blood Pressure Mean [Right Arm] Blood Pressure Position Blood Pressure Position [Right Arm] Pulse Oximetry 98 97 Oxygen Delivery Method Sepsis Recent Fever Within 48 Hours Sepsis New/Unexplained Change in Mental Status Sepsis Action Taken by Nursing 11/07/22 11:30 11/07/22 11:30 11/07/22 11:47 Temperature Temperature Source Pulse Rate 52 L 53 L Pulse Rate [Apical] Pulse Rate from SpO2 Sensor 52 L 56 L Pulse Rhythm Pulse Rhythm [Apical] Pulse Strength Respiratory Rate 13 17 Respiratory Effort / Characteristics Respiratory Depth Respiratory Pattern Blood Pressure 182/89 H Blood Pressure [Right Arm] Blood Pressure Mean 120 Blood Pressure Mean [Right Arm] Blood Pressure Position Blood Pressure Position [Right Arm] Pulse Oximetry 98 98 Oxygen Delivery Method Sepsis Recent Fever Within 48 Hours Sepsis New/Unexplained Change in Mental Status Sepsis Action Taken by Nursing 11/07/22 11:47 11/07/22 11:53 11/07/22 11:53 Temperature Temperature Source Pulse Rate 59 L Pulse Rate [Apical] Pulse Rate from SpO2 Sensor Pulse Rhythm Pulse Rhythm [Apical] Pulse Strength Respiratory Rate 17 Respiratory Effort / Characteristics Respiratory Depth Respiratory Pattern Blood Pressure 203/75 H 194/77 H Blood Pressure [Right Arm] Blood Pressure Mean 117 116 Blood Pressure Mean [Right Arm] Blood Pressure Position Blood Pressure Position [Right Arm] Pulse Oximetry Oxygen Delivery Method Sepsis Recent Fever Within 48 Hours Sepsis New/Unexplained Change in Mental Status Sepsis Action Taken by Nursing 11/07/22 12:02 11/07/22 12:22 11/07/22 12:22 Temperature Temperature Source Pulse Rate 77 57 L Pulse Rate [Apical] Pulse Rate from SpO2 Sensor Pulse Rhythm Pulse Rhythm [Apical] Pulse Strength Respiratory Rate 15 17 Respiratory Effort / Characteristics Respiratory Depth Respiratory Pattern Blood Pressure 187/111 H Blood Pressure [Right Arm] Blood Pressure Mean 136 Blood Pressure Mean [Right Arm] Blood Pressure Position Blood Pressure Position [Right Arm] Pulse Oximetry Oxygen Delivery Method Sepsis Recent Fever Within 48 Hours Sepsis New/Unexplained Change in Mental Status Sepsis Action Taken by Nursing 11/07/22 12:30 11/07/22 12:30 11/07/22 13:00 Temperature Temperature Source Pulse Rate 53 L 56 L Pulse Rate [Apical] Pulse Rate from SpO2 Sensor Pulse Rhythm Pulse Rhythm [Apical] Pulse Strength Respiratory Rate 13 21 Respiratory Effort / Characteristics Respiratory Depth Respiratory Pattern Blood Pressure 189/84 H Blood Pressure [Right Arm] Blood Pressure Mean 119 Blood Pressure Mean [Right Arm] Blood Pressure Position Blood Pressure Position [Right Arm] Pulse Oximetry Oxygen Delivery Method Sepsis Recent Fever Within 48 Hours Sepsis New/Unexplained Change in Mental Status Sepsis Action Taken by Nursing 11/07/22 13:03 11/07/22 13:03 11/07/22 13:32 Temperature Temperature Source Pulse Rate 62 62 Pulse Rate [Apical] Pulse Rate from SpO2 Sensor Pulse Rhythm Pulse Rhythm [Apical] Pulse Strength Respiratory Rate 17 17 Respiratory Effort / Characteristics Respiratory Depth Respiratory Pattern Blood Pressure 212/92 H Blood Pressure [Right Arm] Blood Pressure Mean 132 Blood Pressure Mean [Right Arm] Blood Pressure Position Blood Pressure Position [Right Arm] Pulse Oximetry Oxygen Delivery Method Sepsis Recent Fever Within 48 Hours Sepsis New/Unexplained Change in Mental Status Sepsis Action Taken by Nursing 11/07/22 13:33 11/07/22 13:33 11/07/22 13:44 Temperature Temperature Source Pulse Rate 62 54 L Pulse Rate [Apical] Pulse Rate from SpO2 Sensor Pulse Rhythm Pulse Rhythm [Apical] Pulse Strength Respiratory Rate 13 19 Respiratory Effort / Characteristics Respiratory Depth Respiratory Pattern Blood Pressure 213/95 H Blood Pressure [Right Arm] Blood Pressure Mean 134 Blood Pressure Mean [Right Arm] Blood Pressure Position Blood Pressure Position [Right Arm] Pulse Oximetry Oxygen Delivery Method Sepsis Recent Fever Within 48 Hours Sepsis New/Unexplained Change in Mental Status Sepsis Action Taken by Nursing 11/07/22 13:44 11/07/22 13:45 11/07/22 14:00 Temperature Temperature Source Pulse Rate 58 L Pulse Rate [Apical] Pulse Rate from SpO2 Sensor Pulse Rhythm Pulse Rhythm [Apical] Pulse Strength Respiratory Rate 16 Respiratory Effort / Characteristics Respiratory Depth Respiratory Pattern Blood Pressure 193/100 H 200/91 H Blood Pressure [Right Arm] Blood Pressure Mean 131 127 Blood Pressure Mean [Right Arm] Blood Pressure Position Blood Pressure Position [Right Arm] Pulse Oximetry Oxygen Delivery Method Sepsis Recent Fever Within 48 Hours Sepsis New/Unexplained Change in Mental Status Sepsis Action Taken by Nursing 11/07/22 14:00 11/07/22 14:15 11/07/22 14:15 Temperature Temperature Source Pulse Rate 57 L 58 L Pulse Rate [Apical] Pulse Rate from SpO2 Sensor Pulse Rhythm Pulse Rhythm [Apical] Pulse Strength Respiratory Rate 14 14 Respiratory Effort / Characteristics Respiratory Depth Respiratory Pattern Blood Pressure 183/73 H Blood Pressure [Right Arm] Blood Pressure Mean 109 Blood Pressure Mean [Right Arm] Blood Pressure Position Blood Pressure Position [Right Arm] Pulse Oximetry Oxygen Delivery Method Sepsis Recent Fever Within 48 Hours Sepsis New/Unexplained Change in Mental Status Sepsis Action Taken by Nursing 11/07/22 14:30 11/07/22 14:30 11/07/22 14:45 Temperature Temperature Source Pulse Rate 57 L Pulse Rate [Apical] Pulse Rate from SpO2 Sensor Pulse Rhythm Pulse Rhythm [Apical] Pulse Strength Respiratory Rate 15 Respiratory Effort / Characteristics Respiratory Depth Respiratory Pattern Blood Pressure 185/83 H 196/85 H Blood Pressure [Right Arm] Blood Pressure Mean 117 122 Blood Pressure Mean [Right Arm] Blood Pressure Position Blood Pressure Position [Right Arm] Pulse Oximetry Oxygen Delivery Method Sepsis Recent Fever Within 48 Hours Sepsis New/Unexplained Change in Mental Status Sepsis Action Taken by Nursing 11/07/22 14:45 11/07/22 15:00 11/07/22 15:00 Temperature Temperature Source Pulse Rate 57 L 55 L Pulse Rate [Apical] Pulse Rate from SpO2 Sensor Pulse Rhythm Pulse Rhythm [Apical] Pulse Strength Respiratory Rate 14 14 Respiratory Effort / Characteristics Respiratory Depth Respiratory Pattern Blood Pressure 195/82 H Blood Pressure [Right Arm] Blood Pressure Mean 119 Blood Pressure Mean [Right Arm] Blood Pressure Position Blood Pressure Position [Right Arm] Pulse Oximetry Oxygen Delivery Method Sepsis Recent Fever Within 48 Hours Sepsis New/Unexplained Change in Mental Status Sepsis Action Taken by Nursing 11/07/22 15:15 11/07/22 16:23 11/07/22 16:23 Temperature Temperature Source Pulse Rate 60 65 Pulse Rate [Apical] Pulse Rate from SpO2 Sensor Pulse Rhythm Pulse Rhythm [Apical] Pulse Strength Respiratory Rate 18 16 Respiratory Effort / Characteristics Respiratory Depth Respiratory Pattern Blood Pressure 170/87 H Blood Pressure [Right Arm] Blood Pressure Mean 114 Blood Pressure Mean [Right Arm] Blood Pressure Position Blood Pressure Position [Right Arm] Pulse Oximetry Oxygen Delivery Method Sepsis Recent Fever Within 48 Hours Sepsis New/Unexplained Change in Mental Status Sepsis Action Taken by Nursing 11/07/22 17:04 Temperature Temperature Source Pulse Rate 60 Pulse Rate [Apical] Pulse Rate from SpO2 Sensor Pulse Rhythm Pulse Rhythm [Apical] Pulse Strength Respiratory Rate Respiratory Effort / Characteristics Respiratory Depth Respiratory Pattern Blood Pressure Blood Pressure [Right Arm] Blood Pressure Mean Blood Pressure Mean [Right Arm] Blood Pressure Position Blood Pressure Position [Right Arm] Pulse Oximetry Oxygen Delivery Method Sepsis Recent Fever Within 48 Hours Sepsis New/Unexplained Change in Mental Status Sepsis Action Taken by Nursing Laboratory Data 11/07/22 09:00 11/07/22 09:00 Lab Results 11/07/22 11/07/22 11/07/22 Range/Units 09:00 09:00 09:00 WBC 6.23 (4.8-10.8) K/ul RBC 4.41 L (4.70-6.10) M/uL Hgb 13.4 L (14.0-18.0) g/dl Hct 39.5 L (42.0-52.0) % MCV 89.6 (80.0-100.0) fL MCH 30.4 (25.0-34.0) pg MCHC 33.9 (32.0-36.0) g/dL RDW Std Deviation 47.8 H (36.4-46.3) fL RDW Coeff of [place] 14.5 (11.5-14.5) % Plt Count 181 (130-400) K/uL MPV 10.8 (9.4-12.4) fL Immature Gran % (Auto) 0.3 % Neut % (Auto) 63.8 % Lymph % (Auto) 22.0 % [place] % (Auto) 9.5 % Eos % (Auto) 3.4 % Baso % (Auto) 1.0 % Neut # (Auto) 3.98 (1.40-6.50) K/uL Lymph # (Auto) 1.37 (1.2-3.4) K/uL [place] # (Auto) 0.59 (0.11-0.59) K/uL Eos # (Auto) 0.21 (0-0.50) K/uL Baso # (Auto) 0.06 (0-0.2) K/uL Immature Gran # (Auto) 0.02 (0.01-0.20) K/uL Sodium 138 (136-145) mmol/L Potassium 3.5 (3.5-5.1) mmol/L Chloride 106 (98-107) mmol/L Carbon Dioxide 26 (21-32) mmol/L Anion Gap 6 (3-11) BUN 22 (6-23) mg/dl Creatinine 1.12 (0.6-1.4) mg/dl Est Cr Clr Drug Dosing Not Reportable Est GFR ( Amer) 67.6 ml/min Est GFR (Non-Af Amer) 58.3 ml/min BUN/Creatinine Ratio 19.6 (10-20) Glucose 107 H (70-99(Fasting)) mg/dl Calcium 8.7 (8.6-10.3) mg/dl Magnesium 1.9 (1.7-2.4) mg/dl Total Bilirubin 0.5 (0.2-1.0) mg/dl AST 14 (13-39) U/L ALT 13 (7-52) U/L Alkaline Phosphatase 51 (34-104) U/L Troponin I High Sens 10.0 (0-20) pg/ml Total Protein 6.5 (6.0-8.3) gm/dl Albumin 4.0 (3.4-5.0) gm/dl Globulin 2.5 (2.5-4.0) gm/dl Albumin/Globulin Ratio 1.6 (0.9-2) TSH 2.199 (0.300-4.500) uIu/ml Urine Color Urine Appearance (Clear) Urine pH (4.5-7.5) Ur Specific [place] (1.000-1.030) Urine Protein (Negative) Urine Glucose (UA) (Negative) Urine Ketones (Negative) Urine Blood (Negative) Urine Nitrite (Negative) Urine Bilirubin (Negative) Urine Urobilinogen (Negative) Ur Leukocyte Esterase (Negative) 11/07/22 Range/Units 10:00 WBC (4.8-10.8) K/ul RBC (4.70-6.10) M/uL Hgb (14.0-18.0) g/dl Hct (42.0-52.0) % MCV (80.0-100.0) fL MCH (25.0-34.0) pg MCHC (32.0-36.0) g/dL RDW Std Deviation (36.4-46.3) fL RDW Coeff of [place] (11.5-14.5) % Plt Count (130-400) K/uL MPV (9.4-12.4) fL Immature Gran % (Auto) % Neut % (Auto) % Lymph % (Auto) % [place] % (Auto) % Eos % (Auto) % Baso % (Auto) % Neut # (Auto) (1.40-6.50) K/uL Lymph # (Auto) (1.2-3.4) K/uL [place] # (Auto) (0.11-0.59) K/uL Eos # (Auto) (0-0.50) K/uL Baso # (Auto) (0-0.2) K/uL Immature Gran # (Auto) (0.01-0.20) K/uL Sodium (136-145) mmol/L Potassium (3.5-5.1) mmol/L Chloride (98-107) mmol/L Carbon Dioxide (21-32) mmol/L Anion Gap (3-11) BUN (6-23) mg/dl Creatinine (0.6-1.4) mg/dl Est Cr Clr Drug Dosing Est GFR ( Amer) ml/min Est GFR (Non-Af Amer) ml/min BUN/Creatinine Ratio (10-20) Glucose (70-99(Fasting)) mg/dl Calcium (8.6-10.3) mg/dl Magnesium (1.7-2.4) mg/dl Total Bilirubin (0.2-1.0) mg/dl AST (13-39) U/L ALT (7-52) U/L Alkaline Phosphatase (34-104) U/L Troponin I High Sens (0-20) pg/ml Total Protein (6.0-8.3) gm/dl Albumin (3.4-5.0) gm/dl Globulin (2.5-4.0) gm/dl Albumin/Globulin Ratio (0.9-2) TSH (0.300-4.500) uIu/ml Urine Color Yellow Urine Appearance Clear (Clear) Urine pH 5.0 (4.5-7.5) Ur Specific [place] 1.008 (1.000-1.030) Urine Protein Negative (Negative) Urine Glucose (UA) Negative (Negative) Urine Ketones Negative (Negative) Urine Blood Negative (Negative) Urine Nitrite Negative (Negative) Urine Bilirubin Negative (Negative) Urine Urobilinogen Negative (Negative) Ur Leukocyte Esterase Negative (Negative) Administered Medications Discontinued Medications Amlodipine Besylate (Amlodipine Besylate 5 Mg Tab) 2.5 mg PO NOW ONE Stop: 11/07/22 12:09 Last Admin: 11/07/22 12:22 Dose: 2.5 mg Documented By: SUMAYA Clopidogrel Bisulfate (Clopidogrel Bisulfate 300 Mg Tab) 300 mg PO NOW STA Stop: 11/07/22 17:03 Last Admin: 11/07/22 19:31 Dose: 300 mg Documented By: SUMAYA Clopidogrel Bisulfate (Clopidogrel Bisulfate 300 Mg Tab) Confirm Administered Dose 300 mg .ROUTE .STK-MED ONE Stop: 11/07/22 19:30 Last Admin: 11/07/22 19:33 Dose: Not Given Documented By: SUMAYA Hydralazine HCl (Hydralazine Hcl 20 Mg/Ml Vial) 5 mg IV NOW ONE Stop: 11/07/22 13:41 Last Admin: 11/07/22 13:43 Dose: 5 mg Documented By: SUMAYA Hydralazine HCl (Hydralazine Hcl 20 Mg/Ml Vial) 5 mg IV NOW ONE Stop: 11/07/22 14:56 Last Admin: 11/07/22 15:06 Dose: 5 mg Documented By: SUMAYA Ioversol (Optiray 320 500ml) 111 ml IV ONCE ONE Stop: 11/07/22 10:10 Last Admin: 11/07/22 10:09 Dose: 111 ml Documented By: NITESH Meclizine HCl (Meclizine Hcl 25 Mg Tab) 25 mg PO NOW STA Stop: 11/07/22 10:57 Last Admin: 11/07/22 11:07 Dose: 25 mg Documented By: SUMAYA Meclizine HCl (Meclizine Hcl 25 Mg Tab) 25 mg PO NOW STA Stop: 11/07/22 16:27 Last Admin: 11/07/22 16:36 Dose: 25 mg Documented By: SUMAYA Imaging Data Radiologist's Impression: Head CTA 11/07/22 09:[address] OF THE BRAIN; CT ANGIOGRAM OF THE BRAIN; CT ANGIOGRAM OF THE NECK CLINICAL HISTORY: Dizziness. COMPARISON STUDY: CT of the brain dated 10/25/2016 TECHNIQUE: Unenhanced axial CT scan of the brain is performed. Subsequently, following the IV administration of 111 of Optiray 320, CT angiogram of the head and neck was performed from the aortic arch to the vertex. Images are reviewed in the axial, sagittal, and coronal planes. 3-D MIPS images are created and assessed. IV contrast was administered without complication. All measurements were calculated based on NASCET criteria. A dose lowering technique was utilized adhering to the principles of ALARA. CT DOSE: 1193.78 mGy.cm FINDINGS: Brain parenchyma: There is age-related involutional change noted in mild subco rtical and periventricular microangiopathic disease. There is no hemorrhage, mass effect, or evidence of acute territorial ischemia by CT criteria. There is no evidence of enhancing mass lesion on the angiogram phase images. The ventricles, sulci, and cisterns are prominent secondary to involutional change. Babcock-white matter differentiation is preserved. No extra-axial fluid collection is seen. Thoracic aorta: There is atherosclerotic calcification of the thoracic aorta. Visualized portions of the thoracic aorta are normal in caliber. The aortic arch demonstrates standard 3-vessel anatomy. Right carotid arterial system: The right common carotid artery is widely patent, as are the right internal and external carotid arteries. Calcified plaque is noted in the carotid bulb. Left carotid arterial system: The left common carotid artery is widely patent, as are the left internal and external carotid arteries. Calcified plaque is noted in the carotid bulb. Vertebral arteries: The vertebral arteries are widely patent bilaterally and codominant. Subclavian arteries: Widely patent bilaterally. Intracranial vasculature: There is atherosclerotic calcification of the cavernous carotid and vertebral arteries. The internal carotid arteries are patent at the skull base, as are the anterior and middle cerebral arteries bilaterally. The vertebrobasilar system and posterior cerebral arteries are patent. The vertebral arteries are codominant. There is [id number] focal stenosis of the left vertebral artery at the skull base seen on axial image #31. There are foci of moderate to high-grade stenosis involving the proximal posterior cerebral arteries bilaterally. This is seen on the right on image #117 and on the left on image #118. There is moderate focal stenosis of the M2 segment of the left middle cerebral artery seen on coronal image #39. No aneurysm or focal vessel cut off is seen throughout the intracranial circulation. Jugular veins: Patent bilaterally. Dural sinuses: Patent. Lung apices: Partially visualized upper lobe lung parenchyma appears clear. Soft tissues: The visualized pharyngeal soft tissues are normal in appearance noting angiographic phase technique. The oropharyngeal airway appears widely patent. The salivary and thyroid glands are normal in appearance. No cervical lymphadenopathy is seen. Skeletal structures: The skeletal structures are osteopenic. The calvarium appe ars intact. The cervical spine is maintained noting multilevel spondylosis. No lytic or blastic lesion is seen. Orbits: The bony orbits are intact. Orbital contents are normal as visualized nothing bilateral ocular lens implants. Sinuses and mastoids: There is mild mucosal thickening within the maxillary antra. Maxillary retention cysts measure up to 1.3 cm. The mastoid air cells are well pneumatized. IMPRESSION: 1. There is no hemorrhage, mass effect, or evidence of acute territorial ischemia by CT criteria. 2. The intracranial vessels are patent. 3. There are foci of stenosis involving the left vertebral artery at the skull base, both proximal posterior cerebral arteries, and the M2 segment of the left middle cerebral artery. 4. Unremarkable CT angiogram of the neck. ACT 112: Negative or not required by law. Electronically signed by: Blas Butler M.D. 11/07/2022 10:43 AM Neck CTA 11/07/22 09:[address] OF THE BRAIN; CT ANGIOGRAM OF THE BRAIN; CT ANGIOGRAM OF THE NECK CLINICAL HISTORY: Dizziness. COMPARISON STUDY: CT of the brain dated 10/25/2016 TECHNIQUE: Unenhanced axial CT scan of the brain is performed. Subsequently, following the IV administration of 111 of Optiray 320, CT angiogram of the head and neck was performed from the aortic arch to the vertex. Images are reviewed in the axial, sagittal, and coronal planes. 3-D MIPS images are created and assessed. IV contrast was administered without complication. All measurements were calculated based on NASCET criteria. A dose lowering technique was utilized adhering to the principles of ALARA. CT DOSE: 1193.78 mGy.cm FINDINGS: Brain parenchyma: There is age-related involutional change noted in mild subcortical and periventricular microangiopathic disease. There is no hemorrhage, mass effect, or evidence of acute territorial ischemia by CT criteria. There is no evidence of enhancing mass lesion on the angiogram phase images. The ventricles, sulci, and cisterns are prominent secondary to involutional change. Babcock-white matter differentiation is preserved. No extra- axial fluid collection is seen. Thoracic aorta: There is atherosclerotic calcification of the thoracic aorta. Visualized portions of the thoracic aorta are normal in caliber. The aortic arch demonstrates standard 3-vessel anatomy. Right carotid arterial system: The right common carotid artery is widely patent, as are the right internal and external carotid arteries. Calcified plaque is noted in the carotid bulb. Left carotid arterial system: The left common carotid artery is widely patent, as are the left internal and external carotid arteries. Calcified plaque is noted in the carotid bulb. Vertebral arteries: The vertebral arteries are widely patent bilaterally and codominant. Subclavian arteries: Widely patent bilaterally. Intracranial vasculature: There is atherosclerotic calcification of the cavernous carotid and vertebral arteries. The internal carotid arteries are patent at the skull base, as are the anterior and middle cerebral arteries bila terally. The vertebrobasilar system and posterior cerebral arteries are patent. The vertebral arteries are codominant. There is ojjk-yc-jrbhtidr focal stenosis of the left vertebral artery at the skull base seen on axial image #31. There are foci of moderate to high-grade stenosis involving the proximal posterior cerebral arteries bilaterally. This is seen on the right on image #117 and on the left on image #118. There is moderate focal stenosis of the M2 segment of the left middle cerebral artery seen on coronal image #39. No aneurysm or focal vessel cut off is seen throughout the intracranial circulation. Jugular veins: Patent bilaterally. Dural sinuses: Patent. Lung apices: Partially visualized upper lobe lung parenchyma appears clear. Soft tissues: The visualized pharyngeal soft tissues are normal in appearance noting angiographic phase technique. The oropharyngeal airway appears widely patent. The salivary and thyroid glands are normal in appearance. No cervical lymphadenopathy is seen. Skeletal structures: The skeletal structures are osteopenic. The calvarium appears intact. The cervical spine is maintained noting multilevel spondylosis. No lytic or blastic lesion is seen. Orbits: The bony orbits are intact. Orbital contents are normal as visualized nothing bilateral ocular lens implants. Sinuses and mastoids: There is mild mucosal thickening within the maxillary antra. Maxillary retention cysts measure up to 1.3 cm. The mastoid air cells are well pneumatized. IMPRESSION: 1. There is no hemorrhage, mass effect, or evidence of acute territorial ischemia by CT criteria. 2. The intracranial vessels are patent. 3. There are foci of stenosis involving the left vertebral artery at the skull base, both proximal posterior cerebral arteries, and the M2 segment of the left middle cerebral artery. 4. Unremarkable CT angiogram of the neck. ACT 112: Negative or not required by law. Electronically signed by: Blas Butler M.D. 11/07/2022 10:43 AM Chest X-Ray 11/07/22 09:02 SINGLE VIEW CHEST CLINICAL HISTORY: Dizziness. FINDINGS: An AP, portable, upright chest radiograph is compared to study dated 10/25/2016. The patient is status post midline sternotomy. The heart is enlarged noting atherosclerotic calcification of the thoracic aorta. The pulmonary vasculature is noncongested. Chronic interstitial thickening is similar to previous. There are scattered calcified granulomas. The lungs and pleural spaces are otherwise clear noting mild bibasilar scarring/atelectasis. No pneumothorax is seen. The skeletal structures are osteopenic. The bony thorax is grossly intact. A left shoulder arthroplasty is in place. IMPRESSION: Cardiomegaly with no active disease in the chest. ACT 112: Negative or not required by law. Electronically signed by: Blas Butler M.D. 11/07/2022 9:[address] 11/07/22 09:[address] OF THE BRAIN; CT ANGIOGRAM OF THE BRAIN; CT ANGIOGRAM OF THE NECK CLINICAL HISTORY: Dizziness. COMPARISON STUDY: CT of the brain dated 10/25/2016 TECHNIQUE: Unenhanced axial CT scan of the brain is performed. Subsequently, fol lowing the IV administration of 111 of Optiray 320, CT angiogram of the head and neck was performed from the aortic arch to the vertex. Images are reviewed in the axial, sagittal, and coronal planes. 3-D MIPS images are created and assessed. IV contrast was administered without complication. All measurements were calculated based on NASCET criteria. A dose lowering technique was utilized adhering to the principles of ALARA. CT DOSE: 1193.78 mGy.cm FINDINGS: Brain parenchyma: There is age-related involutional change noted in mild subcortical and periventricular microangiopathic disease. There is no hemorrhage, mass effect, or evidence of acute territorial ischemia by CT criteria. There is no evidence of enhancing mass lesion on the angiogram phase images. The ventricles, sulci, and cisterns are prominent secondary to involutional change. Babcock-white matter differentiation is preserved. No extra- axial fluid collection is seen. Thoracic aorta: There is atherosclerotic calcification of the thoracic aorta. Visualized portions of the thoracic aorta are normal in caliber. The aortic arch demonstrates standard 3-vessel anatomy. Right carotid arterial system: The right common carotid artery is widely patent, as are the right internal and external carotid arteries. Calcified plaque is noted in the carotid bulb. Left carotid arterial system: The left common carotid artery is widely patent, as are the left internal and external carotid arteries. Calcified plaque is noted in the carotid bulb. Vertebral arteries: The vertebral arteries are widely patent bilaterally and codominant. Subclavian arteries: Widely patent bilaterally. Intracranial vasculature: There is atherosclerotic calcification of the cavernous carotid and vertebral arteries. The internal carotid arteries are patent at the skull base, as are the anterior and middle cerebral arteries b ilaterally. The vertebrobasilar system and posterior cerebral arteries are patent. The vertebral arteries are codominant. There is jdaj-xg-lymbddeh focal stenosis of the left vertebral artery at the skull base seen on axial image #31. There are foci of moderate to high-grade stenosis involving the proximal posterior cerebral arteries bilaterally. This is seen on the right on image #117 and on the left on image #118. There is moderate focal stenosis of the M2 segment of the left middle cerebral artery seen on coronal image #39. No aneurysm or focal vessel cut off is seen throughout the intracranial circulation. Jugular veins: Patent bilaterally. Dural sinuses: Patent. Lung apices: Partially visualized upper lobe lung parenchyma appears clear. Soft tissues: The visualized pharyngeal soft tissues are normal in appearance noting angiographic phase technique. The oropharyngeal airway appears widely patent. The salivary and thyroid glands are normal in appearance. No cervical lymphadenopathy is seen. Skeletal structures: The skeletal structures are osteopenic. The calvarium appears intact. The cervical spine is maintained noting multilevel spondylosis. No lytic or blastic lesion is seen. Orbits: The bony orbits are intact. Orbital contents are normal as visualized nothing bilateral ocular lens implants. Sinuses and mastoids: There is mild mucosal thickening within the maxillary antra. Maxillary retention cysts measure up to 1.3 cm. The mastoid air cells are well pneumatized. IMPRESSION: 1. There is no hemorrhage, mass effect, or evidence of acute territorial ischemia by CT criteria. 2. The intracranial vessels are patent. 3. There are foci of stenosis involving the left vertebral artery at the skull base, both proximal posterior cerebral arteries, and the M2 segment of the left middle cerebral artery. 4. Unremarkable CT angiogram of the neck. ACT 112: Negative or not required by law. Electronically signed by: Blas Butler M.D. 11/07/2022 10:43 AM Brain MRI 11/07/22 12:40 Brain MRI WITHOUT CONTRAST HISTORY: dizzy, ?posterior cva TECHNIQUE: Multiplanar multisequence MRI of the brain was performed without the use of contrast. COMPARISON STUDY: Head CT 11/07/2022. FINDINGS: There is a questionable punctate focus of restricted diffusion within the left periventricular cerebellar hemisphere on image 7. This raises the possibility of a small acute lacunar infarct at this location. Otherwise, no additional areas of restricted diffusion identified. The midline structures are intact. Small retention cysts are seen within the maxillary sinuses. Prior bilateral lens replacement. The major vascular flow-voids at the skull base are well-maintained. There is no mass, hematoma or midline shift. The ventricles and sulci demonstrate moderate age-related involutional changes. Mild periventricular white matter T2 hyperintensity is nonspecific but favors microvascular ischemic change. Small focus of increased T2 signal within the left posterior cerebellar hemisphere suggestive of an old infarct. There is a 3 mm cystic focus within the left cerebellar hemisphere on image 7. This is of doubtful clinical significance and could represent a small perivascular space. IMPRESSION: 1. There is a questionable punctate focus of restricted diffusion within the left periventricular cerebellar hemisphere which raises the possibility of a small acute lacunar infarct at this location. 2. No intracranial hemorrhage. 3. Atrophy and microvascular ischemic changes are noted. ACT 112: Negative or not required by law. Electronically signed by: Kalia Avendano M.D. 11/07/2022 4:15 PM Discharge Plan Visit Data Chief Complaint: Vertigo Stated Complaint: EXTREME VERTIGO ED Provider: Catherine Dodd Discharge Problem: Dizziness, Acute CVA (cerebrovascular accident), HTN (hypertension) Forms Stand Alone Forms: [facility] Prescriptions Prescriptions: No Action potassium chloride 20 mEq tablet extended release 20 meq PO DAILY Qty: 90 1RF torsemide 20 mg tablet 20 mg PO DAILY Qty: 90 3RF amlodipine 2.5 mg tablet 2.5 mg PO DAILY Qty: 90 3RF Rx Instructions: in addition to 5mg dose aspirin 81 mg tablet,delayed release (DR/EC) 81 mg PO DAILY Qty: 90 3RF alpha lipoic acid 600 mg capsule 600 mg PO BID Qty: 180 3RF bimatoprost 0.01 % drops 1 drops OP DAILY Qty: 7.5 0RF cyanocobalamin (vitamin B-12) 1,000 mcg tablet 1,000 mcg PO DAILY Qty: 90 3RF sodium chloride 2 % drops 1 drops OP QID Qty: 15 0RF amlodipine 5 mg tablet 5 mg PO DAILY Qty: 90 3RF Rx Instructions: in addition to 2.5mg dose allopurinol 100 mg tablet 100 mg PO DAILY Qty: 90 3RF levobunolol 0.5 % drops 1 drp ophthalmic (eye) DAILY Simbrinza 1-0.2 % Drops,Suspension 1 drp ophthalmic (eye) TID magnesium oxide 250 mg magnesium Tablet 250 mg PO HS simvastatin 10 mg tablet 10 mg PO HS doxazosin 2 mg tablet 2 mg PO HS Metamucil Packet 1 packet PO DAILY Rx Instructions: mix into at least 8 oz of water or juice before administering Referrals Referrals: Daniel Herrera MD [Physician] -
[2022-11-07 09:26] LABS: Basophils # (auto) 0.06 K/uL (0-0.2); Eosinophils # (auto) 0.21 K/uL (0-0.50); Eosinophils % (auto) 3.4 %; Hematocrit (blood only) 39.5 % (42.0-52.0); Hemoglobin 13.4 g/dl (14.0-18.0); Immature Granulocytes # (auto) 0.02 K/uL (0.01-0.20); Immature Granulocytes % (auto) 0.3 %; Lymphocytes # (auto) 1.37 K/uL (1.2-3.4); Mean Corpuscular Hemoglobin 30.4 pg (25.0-34.0); Mean Corpuscular Hgb Conc 33.9 g/dL (32.0-36.0); Mean Corpuscular Volume 89.6 fL (80.0-100.0); Mean Platelet Volume 10.8 fL (9.4-12.4); Monocytes # (auto) 0.59 K/uL (0.11-0.59); Monocytes % (auto) 9.5 %; Neutrophils # (auto) 3.98 K/uL (1.40-6.50); Neutrophils % (auto) 63.8 %; Platelet Count 181 K/uL (130-400); RDW Coefficient of Variation 14.5 % (11.5-14.5); RDW Standard Deviation 47.8 fL (36.4-46.3); Red Blood Count 4.41 M/uL (4.70-6.10); White Blood Count 6.23 K/ul (4.8-10.8)
[2022-11-07 09:44] LABS: Alanine Aminotransferase 13 U/L (7-52); Albumin Globulin Ratio 1.6 (0.9-2); Alkaline Phosphatase 51 U/L (34-104); Anion Gap 6 (3-11); Aspartate Aminotransferase 14 U/L (13-39); BUN Creatinine Ratio 19.6 (10-20); Bilirubin,Total 0.5 mg/dl (0.2-1.0); Blood Urea Nitrogen 22 mg/dl (6-23); Calcium 8.7 mg/dl (8.6-10.3); Carbon Dioxide 26 mmol/L (21-32); Chloride 106 mmol/L (98-107); Est GFR (African American) 67.6 ml/min; Est GFR (Non-African American) 58.3 ml/min; Globulin 2.5 gm/dl (2.5-4.0); Glucose 107 mg/dl (70-99(Fasting)); Magnesium 1.9 mg/dl (1.7-2.4); Potassium 3.5 mmol/L (3.5-5.1); Sodium 138 mmol/L (136-145); Total Protein 6.5 gm/dl (6.0-8.3)
--- NOTE | 2022-11-07 09:58 | XRay Report ---
SINGLE VIEW CHEST CLINICAL HISTORY: Dizziness. FINDINGS: An AP, portable, upright chest radiograph is compared to study dated 10/25/2016. The patient is status post midline sternotomy. The heart is enlarged noting atherosclerotic calcification of the thoracic aorta. The pulmonary vasculature is noncongested. Chronic interstitial thickening is simila r to previous. There are scattered calcified granulomas. The lungs and pleural spaces are otherwise c lear noting mild bibasilar scarring/atelectasis. No pneumothorax is seen. The skeletal structures are osteopenic. The bony thorax is grossly intact. A left shoulder arthroplasty is in place. IMPRESSION: Cardiomegaly with no active disease in the chest. ACT 112: Negative or not required by law. Electronically signed by: Blas Butler M.D. 11/07/2022 9:57 AM
[2022-11-07] MEDS ORDERED: OPTIRAY 320 500ml IV ONE (10:09)
[2022-11-07 10:18] LABS: Appearance Urine Clear (Clear); Bilirubin Urine Negative (Negative); Blood Urine Negative (Negative); Color Urine Yellow; Glucose Urine UA Negative (Negative); Ketones Urine Negative (Negative); Leukocyte Esterase Urine Negative (Negative); Nitrite Urine Negative (Negative); Protein Urine Negative (Negative); Specific Gravity Urine 1.008 (1.000-1.030); Urobilinogen Urine Negative (Negative)
--- NOTE | 2022-11-07 10:45 | CT Scan Report ---
UNENHANCED CT OF THE BRAIN; CT ANGIOGRAM OF THE BRAIN; CT ANGIOGRAM OF THE NECK CLINICAL HISTORY: Dizziness. COMPARISON STUDY: CT of the brain dated 10/25/2016 TECHNIQUE: Unenhanced axial CT scan of the brain is performed. Subsequently, following the IV adminis tration of 111 of Optiray 320, CT angiogram of the head and neck was performed from the aortic arch t o the vertex. Images are reviewed in the axial, sagittal, and coronal planes. 3-D MIPS images are cre ated and assessed. IV contrast was administered without complication. All measurements were calculate d based on NASCET criteria. A dose lowering technique was utilized adhering to the principles of ALA RA. CT DOSE: 1193.78 mGy.cm FINDINGS: Brain parenchyma: There is age-related involutional change noted in mild subcortical and periventricu lar microangiopathic disease. There is no hemorrhage, mass effect, or evidence of acute territorial i schemia by CT criteria. There is no evidence of enhancing mass lesion on the angiogram phase images. The ventricles, sulci, and cisterns are prominent secondary to involutional change. Babcock-white matter differentiation is preserved. No extra-axial fluid collection is seen. Thoracic aorta: There is atherosclerotic calcification of the thoracic aorta. Visualized portions of the thoracic aorta are normal in caliber. The aortic arch demonstrates standard 3-vessel anatomy. Right carotid arterial system: The right common carotid artery is widely patent, as are the right int ernal and external carotid arteries. Calcified plaque is noted in the carotid bulb. Left carotid arterial system: The left common carotid artery is widely patent, as are the left product marketing intern al and external carotid arteries. Calcified plaque is noted in the carotid bulb. Vertebral arteries: The vertebral arteries are widely patent bilaterally and codominant. Subclavian arteries: Widely patent bilaterally. Intracranial vasculature: There is atherosclerotic calcification of the cavernous carotid and vertebr al arteries. The internal carotid arteries are patent at the skull base, as are the anterior and midd le cerebral arteries bilaterally. The vertebrobasilar system and posterior cerebral arteries are gunn nt. The vertebral arteries are codominant. There is [id number] focal stenosis of the left verte bral artery at the skull base seen on axial image #31. There are foci of moderate to high-grade steno sis involving the proximal posterior cerebral arteries bilaterally. This is seen on the right on imag e #117 and on the left on image #118. There is moderate focal stenosis of the M2 segment of the left middle cerebral artery seen on coronal image #39. No aneurysm or focal vessel cut off is seen through out the intracranial circulation. Jugular veins: Patent bilaterally. Dural sinuses: Patent. Lung apices: Partially visualized upper lobe lung parenchyma appears clear. Soft tissues: The visualized pharyngeal soft tissues are normal in appearance noting angiographic pha se technique. The oropharyngeal airway appears widely patent. The salivary and thyroid glands are nor mal in appearance. No cervical lymphadenopathy is seen. Skeletal structures: The skeletal structures are osteopenic. The calvarium appears intact. The cervic al spine is maintained noting multilevel spondylosis. No lytic or blastic lesion is seen. Orbits: The bony orbits are intact. Orbital contents are normal as visualized nothing bilateral ocula r lens implants. Sinuses and mastoids: There is mild mucosal thickening within the maxillary antra. Maxillary retentio n cysts measure up to 1.3 cm. The mastoid air cells are well pneumatized. IMPRESSION: 1. There is no hemorrhage, mass effect, or evidence of acute territorial ischemia by CT criteria. 2. The intracranial vessels are patent. 3. There are foci of stenosis involving the left vertebral artery at the skull base, both proximal po sterior cerebral arteries, and the M2 segment of the left middle cerebral artery. 4. Unremarkable CT angiogram of the neck. ACT 112: Negative or not required by law. Electronically signed by: Blas Butler M.D. 11/07/2022 10:43 AM
[2022-11-07] MEDS ORDERED: MECLIZINE HCL 25 MG TAB PO STA ×2 (10:56→16:26)
[2022-11-07] MEDS ORDERED: amLODIPine BESYLATE 5 MG TAB PO ONE (12:08)
[2022-11-07] MEDS ORDERED: hydrALAZINE HCL 20 MG/ML VIAL IV ONE ×2 (13:40→14:55)
--- NOTE | 2022-11-07 16:17 | Magnetic Resonance Report ---
Brain MRI WITHOUT CONTRAST HISTORY: dizzy, ?posterior cva TECHNIQUE: Multiplanar multisequence MRI of the brain was performed without the use of contrast. COMPARISON STUDY: Head CT 11/07/2022. FINDINGS: There is a questionable punctate focus of restricted diffusion within the left periventricu lar cerebellar hemisphere on image 7. This raises the possibility of a small acute lacunar infarct at this location. Otherwise, no additional areas of restricted diffusion identified. The midline struct ures are intact. Small retention cysts are seen within the maxillary sinuses. Prior bilateral lens re placement. The major vascular flow-voids at the skull base are well-maintained. There is no mass, hem atoma or midline shift. The ventricles and sulci demonstrate moderate age-related involutional change s. Mild periventricular white matter T2 hyperintensity is nonspecific but favors microvascular ischem ic change. Small focus of increased T2 signal within the left posterior cerebellar hemisphere suggest julius of an old infarct. There is a 3 mm cystic focus within the left cerebellar hemisphere on image 7. This is of doubtful clinical significance and could represent a small perivascular space. IMPRESSION: 1. There is a questionable punctate focus of restricted diffusion within the left periventricular cer ebellar hemisphere which raises the possibility of a small acute lacunar infarct at this location. 2. No intracranial hemorrhage. 3. Atrophy and microvascular ischemic changes are noted. ACT 112: Negative or not required by law. Electronically signed by: Kalia Avendano M.D. 11/07/2022 4:15 PM
[2022-11-07] MEDS ORDERED: CLOPIDOGREL BISULFATE 300 MG TAB PO STA (17:02)
--- NOTE | 2022-11-07 17:38 | History & Physical Report ---
Date of Service November 07, 2022 Assessment & Plan (1) Acute CVA (cerebrovascular accident): Plan: Start clopidogrel 300mg now then 75mg PO daily Continue aspirin 81mg PO daily Given suspected event 2 weeks ago will aim sBP < 180 TTE PT/OT Consult neurology (2) Left bundle branch block: Plan: New onset since EKG in 2017 No chest pain or shortness of breath on exertion (3) Idiopathic small fiber peripheral neuropathy: (4) HTN (hypertension): Plan: Continue amlodipine and torsemide Hydralazine 5mg IV q4h PRN for sBP > 200 (5) Stage 3 chronic kidney disease: (6) Gout: Plan: Continue allopurinol Plan VTE Prophylaxis - Lovenox 40mg SQ daily Diet - heart healthy Disposition - admit PCU Admission and Anticipated Discharge Date Admission Date: November 07, 2022 History of Present Illness Primary Care Provider: SHARON Lino Jensen Moncada is an 87 year old male who presents to the ER with vertigo. He reports sudden onset room spinning sensation starting 2 weeks ago. No precipitating event. He is unable to remember what he was doing when he first had his symptoms. Getting progressively worse during this time. Associated ambulatory dysfunction. No acute change in vision, speech or hearing. No one sided weakness or change in sensation. No facial droop. 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 Never had vertigo previously in the past. Reports he would have come to the ER 2 weeks ago but he is the primary care professionals for his . Last night he was so unsteady helping his to the bathroom he was concerned for both his own and his 's health that he asked his son to bring him to the ER today. Vertigo sensation only occurs whenever he is turning his head. Allergies Allergy/AdvReac Type Severity Reaction Status Date / Time No Known Drug Allergies Allergy Verified 10/28/22 14:13 Home Medications Medication Instructions Recorded Confirmed Type alpha lipoic acid 600 mg capsule 600 mg PO BID #180 caps 01/02/19 10/28/22 Rx aspirin 81 mg tablet,delayed 81 mg PO DAILY #90 tabs 01/02/19 11/07/22 Rx release bimatoprost 0.01 % eye drops 1 drops ophthalmic (eye) DAILY 01/02/19 11/07/22 Rx #7.5 mL cyanocobalamin (vitamin B-12) 1,000 mcg PO DAILY #90 tabs 01/02/19 11/07/22 Rx 1,000 mcg tablet sodium chloride 2 % eye drops 1 drops ophthalmic (eye) QID #15 mL 01/02/19 11/07/22 Rx allopurinol 100 mg tablet 100 mg PO DAILY #90 tabs 11/08/21 11/07/22 Rx amlodipine 5 mg tablet 5 mg PO DAILY #90 tabs 11/08/21 11/07/22 Rx potassium chloride 20 mEq 20 meq PO DAILY #90 tabs 02/19/22 11/07/22 Rx tablet,extended release levobunolol 0.5 % eye drops 1 drp ophthalmic (eye) DAILY 06/05/22 11/07/22 History torsemide 20 mg tablet 20 mg PO DAILY #90 tabs 09/18/22 11/07/22 Rx amlodipine 2.5 mg tablet 2.5 mg PO DAILY #90 tabs 10/30/22 11/07/22 Rx brinzolamide 1 %-brimonidine 0.2 % 1 drp ophthalmic (eye) TID 11/07/22 11/07/22 History eye drops,suspension (Simbrinza) doxazosin 2 mg tablet 2 mg PO HS 11/07/22 11/07/22 History magnesium oxide 250 mg PO HS 11/07/22 11/07/22 History psyllium 1 packet PO DAILY 11/07/22 11/07/22 History simvastatin 10 mg tablet 10 mg PO HS 11/07/22 11/07/22 History Past Med/Surg History Medical History ASCVD (arteriosclerotic cardiovascular disease) Effusion, right knee Erectile dysfunction Glaucoma, pigmentary Glucose intolerance (impaired glucose tolerance) Gout Hypertensive kidney disease with CKD stage III Idiopathic small fiber peripheral neuropathy Malignant neoplasm of prostate Right knee DJD Stage 3 chronic kidney disease Vitamin B12 deficiency Surgical History H/O eye surgery 1969 and 1979 detached retina and trabeculectomy H/O prostatectomy retropubic radical with nerve sparing [place]- Dr. Rodríguez 2006 H/O shoulder surgery 2004- left titanium upper shoulder- partial replacement ball and socket H/O wrist surgery titanium screw placement in 1989- scaphoid bone Hx of CABG double bypass surgery- 1989 Status post double vessel coronary artery bypass Family History Father FHx: kidney cancer Mother Ischemic stroke Hyperlipidemia associated with type 2 diabetes mellitus Glaucoma Hypertension Sister Chronic bronchitis Glaucoma Grandfather Ischemic stroke Grandmother Heart disease Grandfather History of appendectomy Grandmother Heart disease Son Glaucoma Unknown Colon carcinoma Social History Smoking Status: Never smoker Second Hand Exposure: No; Do You Dip or Chew Tobacco: No; Tobacco Cessation Education Requested by Patient: No Hx Alcohol Use: No Hx Substance Use: No Preferred Language: Italian Communication Ability: Effective Stations Superintendent Required: No Beliefs That Will Affect Care: None Current Living Situation: Spouse current occupational status: retired Other Information That Helps Us Care for You: No Feels Safe at Home: Yes Safety Concerns: Feels Safe At This Time caffeine: Yes Assistive Devices: None Review of Systems Review of Systems: All systems reviewed & are unremarkable except as noted in HPI & below Physical Exam Constitutional: WD/WN, vitals as above Eyes: EOM intact bilaterally and + abnormal light reflex (right pupil di lated); + abnormal visual field confrontation (chronic right) ENMT: external ear and nose normal, oropharynx normal Neck: trachea midline, no thyromegaly Respiratory: normal respiratory effort, lungs clear to auscultation Cardiovascular: RRR, no murmur, no edema Gastrointestinal (Abdomen): normal bowel sounds, soft, nontender, no hepatosplenomegaly Musculoskeletal: no cyanosis or clubbing, extremities motor strength 5/5 Skin: no rashes, warm and dry Neurologic: moves all extremities and awake; no focal motor deficits and not confused Speech / Cognition: normal speech Motor/Sensory: no tremor, no pronator drift and no sensory deficit Cranial Nerves: EOM intact bilaterally, normal facial strength, tongue midline, able to rotate head bilaterally, able to elevate shoulders bilaterally, no nystagmus and symmetric palate elevation Coordination: normal [id number] test and normal [id number] test Psychiatric: A+Ox3, euthymic affect Results & Data Results & Data Vital Signs (Past 12 Hours) Vital Signs Temp Pulse Pulse Resp BP BP Pulse Ox 11/07/22 17:04 60 11/07/22 16:23 65 16 11/07/22 16:23 170/87 H 11/07/22 15:15 60 18 11/07/22 15:00 55 L 14 11/07/22 15:00 195/82 H 11/07/22 14:45 57 L 14 11/07/22 14:45 196/85 H 11/07/22 14:30 57 L 15 11/07/22 14:30 185/83 H 11/07/22 14:15 58 L 14 11/07/22 14:15 183/73 H 11/07/22 14:00 57 L 14 11/07/22 14:00 200/91 H 11/07/22 13:45 58 L 16 11/07/22 13:44 193/100 H 11/07/22 13:44 54 L 19 11/07/22 13:33 213/95 H 11/07/22 13:33 62 13 11/07/22 13:32 62 17 11/07/22 13:03 62 17 11/07/22 13:03 212/92 H 11/07/22 13:00 56 L 21 11/07/22 12:30 53 L 13 11/07/22 12:30 189/84 H 11/07/22 12:22 187/111 H 11/07/22 12:22 57 L 17 11/07/22 12:02 77 15 11/07/22 11:53 59 L 17 11/07/22 11:53 194/77 H 11/07/22 11:47 203/75 H 11/07/22 11:47 53 L 17 98 11/07/22 11:30 52 L 13 98 11/07/22 11:30 182/89 H 11/07/22 11:11 54 L 18 97 11/07/22 11:11 193/73 H 11/07/22 11:10 53 L 16 98 11/07/22 11:10 199/71 H 11/07/22 11:00 52 L 20 11/07/22 10:30 50 L 16 11/07/22 10:12 56 L 15 11/07/22 09:30 53 L 15 11/07/22 09:00 60 15 11/07/22 08:59 60 19 11/07/22 13:08 64 11/07/22 11:55 56 L 16 194/77 H 97 11/07/22 11:11 53 L 15 193/73 H 95 11/07/22 09:01 61 11/07/22 08:29 36.5 C 64 16 143/87 H 98 O2 Del Method 11/07/22 17:04 11/07/22 16:23 11/07/22 16:23 11/07/22 15:15 11/07/22 15:00 11/07/22 15:00 11/07/22 14:45 11/07/22 14:45 11/07/22 14:30 11/07/22 14:30 11/07/22 14:15 11/07/22 14:15 11/07/22 14:00 11/07/22 14:00 11/07/22 13:45 11/07/22 13:44 11/07/22 13:44 11/07/22 13:33 11/07/22 13:33 11/07/22 13:32 11/07/22 13:03 11/07/22 13:03 11/07/22 13:00 11/07/22 12:30 11/07/22 12:30 11/07/22 12:22 11/07/22 12:22 11/07/22 12:02 11/07/22 11:53 11/07/22 11:53 11/07/22 11:47 11/07/22 11:47 11/07/22 11:30 11/07/22 11:30 11/07/22 11:11 11/07/22 11:11 11/07/22 11:10 11/07/22 11:10 11/07/22 11:00 11/07/22 10:30 11/07/22 10:12 11/07/22 09:30 11/07/22 09:00 11/07/22 08:59 11/07/22 13:08 11/07/22 11:55 Room Air 11/07/22 11:11 Room Air 11/07/22 09:01 11/07/22 08:29 Room Air Laboratory Results Abnormal lab results 11/07/22 11/07/22 Range/Units 09:00 09:00 RBC 4.41 L (4.70-6.10) M/uL Hgb 13.4 L (14.0-18.0) g/dl Hct 39.5 L (42.0-52.0) % RDW Std Deviation 47.8 H (36.4-46.3) fL Glucose 107 H (70-99(Fasting)) mg/dl Diagnostic Findings UNENHANCED CT OF THE BRAIN; CT ANGIOGRAM OF THE BRAIN; CT ANGIOGRAM OF THE NECK CLINICAL HISTORY: Dizziness. COMPARISON STUDY: CT of the brain dated 10/25/2016 TECHNIQUE: Unenhanced axial CT scan of the brain is performed. Subsequently, following the IV administration of 111 of Optiray 320, CT angiogram of the head and neck was performed from the aortic arch to the vertex. Images are reviewed in the axial, sagittal, and coronal planes. 3-D MIPS images are created and assessed. IV contrast was administered without complication. All measurements were calculated based on NASCET criteria. A dose lowering technique was utilized adhering to the principles of ALARA. CT DOSE: 1193.78 mGy.cm FINDINGS: Brain parenchyma: There is age-related involutional change noted in mild subcortical and periventricular microangiopathic disease. There is no hemorrhage, mass effect, or evidence of acute territorial ischemia by CT criteria. There is no evidence of enhancing mass lesion on the angiogram phase images. The ventricles, sulci, and cisterns are prominent secondary to involutional change. Babcock-white matter differentiation is preserved. No extra- axial fluid collection is seen. Thoracic aorta: There is atherosclerotic calcification of the thoracic aorta. Visualized portions of the thoracic aorta are normal in caliber. The aortic arch demonstrates standard 3-vessel anatomy. Right carotid arterial system: The right common carotid artery is widely patent, as are the right internal and external carotid arteries. Calcified plaque is noted in the carotid bulb. Left carotid arterial system: The left common carotid artery is widely patent, as are the left internal and external carotid arteries. Calcified plaque is noted in the carotid bulb. Vertebral arteries: The vertebral arteries are widely patent bilaterally and codominant. Subclavian arteries: Widely patent bilaterally. Intracranial vasculature: There is atherosclerotic calcification of the cavernous carotid and vertebral arteries. The internal carotid arteries are patent at the skull base, as are the anterior and middle cerebral arteries bilaterally. The vertebrobasilar system and posterior cerebral arteries are patent. The vertebral arteries are codominant. There is [id number]-[id number] focal stenosis of the left vertebral artery at the skull base seen on axial image #31. There are foci of moderate to high-grade stenosis involving the proximal posterior cerebral arteries bilaterally. This is seen on the right on image #117 and on the left on image #118. There is moderate focal stenosis of the M2 segment of the left middle cerebral artery seen on coronal image #39. No aneurysm or focal vessel cut off is seen throughout the intracranial circulation. Jugular veins: Patent bilaterally. Dural sinuses: Patent. Lung apices: Partially visualized upper lobe lung parenchyma appears clear. Soft tissues: The visualized pharyngeal soft tissues are normal in appearance noting angiographic phase technique. The oropharyngeal airway appears widely patent. The salivary and thyroid glands are normal in appearance. No cervical lymphadenopathy is seen. Skeletal structures: The skeletal structures are osteopenic. The calvarium appears intact. The cervical spine is maintained noting multilevel spondylosis. No lytic or blastic lesion is seen. Orbits: The bony orbits are intact. Orbital contents are normal as visualized nothing bilateral ocular lens implants. Sinuses and mastoids: There is mild mucosal thickening within the maxillary antra. Maxillary retention cysts measure up to 1.3 cm. The mastoid air cells are well pneumatized. IMPRESSION: 1. There is no hemorrhage, mass effect, or evidence of acute territorial ischemia by CT criteria. 2. The intracranial vessels are patent. 3. There are foci of stenosis involving the left vertebral artery at the skull base, both proximal posterior cerebral arteries, and the M2 segment of the left middle cerebral artery. 4. Unremarkable CT angiogram of the neck. Brain MRI WITHOUT CONTRAST HISTORY: dizzy, ?posterior cva TECHNIQUE: Multiplanar multisequence MRI of the brain was performed without the use of contrast. COMPARISON STUDY: Head CT 11/07/2022. FINDINGS: There is a questionable punctate focus of restricted diffusion within the left periventricular cerebellar hemisphere on image 7. This raises the possibility of a small acute lacunar infarct at this location. Otherwise, no additional areas of restricted diffusion identified. The midline structures are intact. Small retention cysts are seen within the maxillary sinuses. Prior bilateral lens replacement. The major vascular flow-voids at the skull base are well-maintained. There is no mass, hematoma or midline shift. The ventricles and sulci demonstrate moderate age-related involutional changes. Mild periventricular white matter T2 hyperintensity is nonspecific but favors microvascular ischemic change. Small focus of increased T2 signal within the l eft posterior cerebellar hemisphere suggestive of an old infarct. There is a 3 mm cystic focus within the left cerebellar hemisphere on image 7. This is of doubtful clinical significance and could represent a small perivascular space. IMPRESSION: 1. There is a questionable punctate focus of restricted diffusion within the left periventricular cerebellar hemisphere which raises the possibility of a small acute lacunar infarct at this location. 2. No intracranial hemorrhage. 3. Atrophy and microvascular ischemic changes are noted. SINGLE VIEW CHEST CLINICAL HISTORY: Dizziness. FINDINGS: An AP, portable, upright chest radiograph is compared to study dated 10/25/2016. The patient is status post midline sternotomy. The heart is enlarged noting atherosclerotic calcification of the thoracic aorta. The pulmonary vasculature is noncongested. Chronic interstitial thickening is similar to previous. There are scattered calcified granulomas. The lungs and pleural spaces are otherwise clear noting mild bibasilar scarring/atelectasis. No pneumothorax is seen. The skeletal structures are osteopenic. The bony thorax is grossly intact. A left shoulder arthroplasty is in place. IMPRESSION: Cardiomegaly with no active disease in the chest. Medications Administered ER Medications Given: Meclizine 25mg PO Amlodipine 2.5mg PO Hydralazine 5mg IV ECG Rate (beats per minute): 59 Rhythm: sinus bradycardia Findings: + LBBB Comparison ECG Date: from (October 25, 2016) Change: the following changes noted (LBBB is new) Code Status & VTE Plan Code Status DNR/DNI PG Care Time/CCT Total # of Minutes Spent Total Time Spent with Patient: Total time spent is greater than 50% in coordination of care (as documented) at patient's floor/unit and/or counseling patient: Coding Level of Care Code 95801 INT INP/OBS CARE 3/75MIN Diagnoses Acute CVA (cerebrovascular accident) I63.9 Left bundle branch block I44.7 Idiopathic small fiber peripheral neuropathy G60.9 HTN (hypertension) I10 Hypertension type: essential hypertension Stage 3 chronic kidney disease N18.3 Gout M10.9 (4) HTN (hypertension) Hypertension type: essential hypertension Qualified Code(s): I10 - Essential (primary) hypertension
[2022-11-07] MEDS ORDERED: CLOPIDOGREL BISULFATE 300 MG TAB ONE (19:29)
[2022-11-07 20:22] LABS: Influenza A virus by PCR Negative (Neg); Influenza B virus by PCR Negative (Neg); RSV by PCR Negative (Neg); SARS CoV2 RNA(COVID-19) Ceph NEGATIVE (Negative)
[2022-11-07] MEDS ORDERED: ACETAMINOPHEN 325 MG TAB PO PRN (20:47)
[2022-11-07] MEDS ORDERED: hydrALAZINE HCL 20 MG/ML VIAL IV PRN ×2 (20:47→23:21)
[2022-11-07] MEDS ORDERED: PHARMACIST DISCHARGE MED REC CONSULT PRN (20:47)
[2022-11-07] MEDS: MAGNESIUM OXIDE 400 MG TAB PO SCH (21:25)
[2022-11-07] MEDS: SIMVASTATIN 10 MG TAB PO SCH (21:25)
[2022-11-07] MEDS: DOXAZosin MESYLATE TAB 2 MG TAB PO SCH (21:31)
[2022-11-07] MEDS: LEVOBUNOLOL HCL 0.5% OP SOLN 5 ML BTL OP SCH (21:50)
[2022-11-07] MEDS: BIMATOPROST 0.01% OP SOLN 2.5 ML BTL OP SCH (22:27)
[2022-11-08 06:12] LABS: Basophils # (auto) 0.06 K/uL (0-0.2); Basophils % (auto) 0.9 %; Eosinophils # (auto) 0.18 K/uL (0-0.50); Eosinophils % (auto) 2.8 %; Hematocrit (blood only) 39.2 % (42.0-52.0); Hemoglobin 13.5 g/dl (14.0-18.0); Immature Granulocytes # (auto) 0.01 K/uL (0.01-0.20); Immature Granulocytes % (auto) 0.2 %; Lymphocytes # (auto) 1.45 K/uL (1.2-3.4); Lymphocytes % (auto) 22.3 %; Mean Corpuscular Hemoglobin 30.3 pg (25.0-34.0); Mean Corpuscular Hgb Conc 34.4 g/dL (32.0-36.0); Mean Corpuscular Volume 87.9 fL (80.0-100.0); Mean Platelet Volume 10.8 fL (9.4-12.4); Monocytes # (auto) 0.64 K/uL (0.11-0.59); Monocytes % (auto) 9.8 %; Neutrophils # (auto) 4.16 K/uL (1.40-6.50); Platelet Count 177 K/uL (130-400); RDW Coefficient of Variation 14.5 % (11.5-14.5); RDW Standard Deviation 46.7 fL (36.4-46.3); Red Blood Count 4.46 M/uL (4.70-6.10)
[2022-11-08 06:35] LABS: BUN Creatinine Ratio 18.3 (10-20); Calcium 8.3 mg/dl (8.6-10.3); Chol HDL Ratio 2.8 (0-5); Creatinine Clr Calc Pharmacy 50.2 ml/min; Est GFR (African American) 69.9 ml/min; Est GFR (Non-African American) 60.3 ml/min; Potassium 3.4 mmol/L (3.5-5.1)
[2022-11-08 07:47] LABS: Estimated Average Glucose 123 mg/dl; Hemoglobin A1C 5.9 % (4.5-5.6)
[2022-11-08] MEDS: CLOPIDOGREL BISULFATE 75 MG TAB PO SCH (08:33)
[2022-11-08] MEDS: ENOXAPARIN INJ 40 MG/0.4 ML SYR SQ SCH (08:33)
[2022-11-08] MEDS: allopurinoL 100 MG TAB PO SCH (08:33)
[2022-11-08] MEDS: PSYLLIUM or GUAR GUM FIBER POWDER PACKET PO SCH (08:33)
[2022-11-08] MEDS: TORSEMIDE 20 MG TAB PO SCH (08:34)
[2022-11-08] MEDS: amLODIPine BESYLATE 5 MG TAB PO SCH ×2 (08:34)
[2022-11-08] MEDS: ASPIRIN 81 MG ECTAB PO SCH (08:34)
[2022-11-08] MEDS: CYANOCOBALAMIN (B-12) 500 MCG TABLET PO SCH (08:34)
[2022-11-08] MEDS: POTASSIUM CHLORIDE CRTAB 20 MEQ TABCR PO SCH (08:34)
[2022-11-08] MEDS ORDERED: BIMATOPROST 0.01% OP SOLN 2.5 ML BTL OP SCH (09:00)
[2022-11-08] MEDS ORDERED: LEVOBUNOLOL HCL 0.5% OP SOLN 5 ML BTL OP SCH (09:00)
[2022-11-08] MEDS ORDERED: Nursing to Pharmacy Communication SCH (18:15)
--- NOTE | 2022-11-08 19:17 | Neurology Consultation ---
Date of Consultation November 08, 2022 Assessment & Plan (1) Acute CVA (cerebrovascular accident): Impression: The patient has been suffering from positional vertigo for last few weeks, however, he woke up with sudden worsening of spinning sensation as well as ataxia yesterday morning. Brain MRI showed small, left cerebellar ischemic stroke. The most likely underlying etiology is atherosclerosis and small vessel disease. The patient has multiple stroke risk factors including hypertension. Recommendations: The patient is loaded with Plavix. We should keep patient on Plavix 75 mg and aspirin 81 mg for next 3 weeks. Then switching to single antiplatelet treatment. We will increase Zocor dosage to 20 mg nightly. Physical therapy, Occupational Therapy and short-term rehabilitation. Echocardiogram. Telemetry monitoring. Management of hypertension. We should gradually lower blood pressure with goal is < 140/80. Follow-up at neurology clinic. I will contact with [facility] neurology to set up an appointment. (2) Benign paroxysmal positional vertigo of right ear: Impression: The patient has been suffering from positional vertigo for last 2 weeks. [place]-Hallpike maneuver is suggestive of right BPPV. Recommendations: We will pursue with Talia's canalith to the positioning maneuver. The patient should avoid neck extension, bending over, and turning side to side in the bed for 2 days. The patient will elevate his head 30 degrees up and will stay in the supine position for next 2 days. In case of persistent positional vertigo, Talia's maneuvers should be retried. (3) Intracranial atherosclerosis: Impression: CT angiogram of head showed left vertebral, bilateral posterior cerebral, and left middle cerebral artery stenotic lesions, which are most likely secondary to atherosclerosis. Recommendations: Antiplatelet treatment. We will increase statin dosage. There is no indication for vascular intervention at this time. (4) Left bundle branch block: Plan As seen above. Thank you for the consultation. History of Present Illness Reason for Consultation: Vertigo Requesting Physician: Jerry Brown Attending Physician: Jerry Brown History of Present Illness The patient is a 87-year-old gentleman, who was brought to emergency department yesterday, after the patient had sudden worsening of vertigo as well as ataxia. Apparently, the patient has been experiencing position change induced vertigo for last 2 to 3 weeks. However, he noticed significant worsening of spinning sensation as well as ambulation difficulty this morning and EMS was activated. Initial head CT was unremarkable. Following brain MRI showed left periventricular cerebellar punctate lesion with the diffusion restriction, which was highly suggestive of a lacunar infarct. CT angiography of neck did not show hemodynamically significant stenosis but head CT angiography showed stenosis of left vertebral artery, bilateral posterior cerebral arteries, as well as M2 segment of left middle cerebral arteries. The patient reports some improvement of spinning sensation as well as ambulation since yesterday. After obtaining MRI result, the patient was loaded with Plavix and started on daily aspirin. The patient has been on low-dose Lipitor, and current lipid panel showed LDL of 61. EKG showed bundle branch block. Cardiac monitoring has been showing sinus rhythm. The patient denies having stroke symptoms in the past. I have reviewed the patient's chart including imaging studies and visualized them personally. I have answered the patient's questions in detail. Allergies Allergy/AdvReac Type Severity Reaction Status Date / Time No Known Drug Allergies Allergy Verified 10/28/22 14:13 Home Medications Medication Instructions Recorded Confirmed Type alpha lipoic acid 600 mg capsule 600 mg PO BID #180 caps 01/02/19 10/28/22 Rx aspirin 81 mg tablet,delayed 81 mg PO DAILY #90 tabs 01/02/19 11/07/22 Rx release bimatoprost 0.01 % eye drops 1 drops ophthalmic (eye) DAILY 01/02/19 11/07/22 Rx #7.5 mL cyanocobalamin (vitamin B-12) 1,000 mcg PO DAILY #90 tabs 01/02/19 11/07/22 Rx 1,000 mcg tablet sodium chloride 2 % eye drops 1 drops ophthalmic (eye) QID #15 mL 01/02/1911/07 Rx allopurinol 100 mg tablet 100 mg PO DAILY #90 tabs 11/08/21 11/07/22 Rx amlodipine 5 mg tablet 5 mg PO DAILY #90 tabs 11/08/21 11/07/22 Rx potassium chloride 20 mEq 20 meq PO DAILY #90 tabs 02/19/22 11/07/22 Rx tablet,extended release levobunolol 0.5 % eye drops 1 drp ophthalmic (eye) DAILY 06/05/22 11/07/22 History torsemide 20 mg tablet 20 mg PO DAILY #90 tabs 09/18/22 11/07/22 Rx amlodipine 2.5 mg tablet 2.5 mg PO DAILY #90 tabs 10/30/22 11/07/22 Rx brinzolamide 1 %-brimonidine 0.2 % 1 drp ophthalmic (eye) TID 11/07/22 11/07/22 History eye drops,suspension (Simbrinza) doxazosin 2 mg tablet 2 mg PO HS 11/07/22 11/07/22 History magnesium oxide 250 mg PO HS 11/07/22 11/07/22 History psyllium 1 packet PO DAILY 11/07/22 11/07/22 History simvastatin 10 mg tablet 10 mg PO HS 11/07/22 11/07/22 History Patient History Medical History (Updated 11/08/22 @ 19:42 by Tevin Parra MD) ASCVD (arteriosclerotic cardiovascular disease) Effusion, right knee Erectile dysfunction Glaucoma, pigmentary Glucose intolerance (impaired glucose tolerance) Gout Hypertensive kidney disease with CKD stage III Idiopathic small fiber peripheral neuropathy Malignant neoplasm of prostate Right knee DJD Stage 3 chronic kidney disease Vitamin B12 deficiency Surgical History H/O eye surgery 1969 and 1979 detached retina and trabeculectomy H/O prostatectomy retropubic radical with nerve sparing [place]- Dr. 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 Family History Father FHx: kidney cancer Mother Ischemic stroke Hyperlipidemia associated with type 2 diabetes mellitus Glaucoma Hypertension Sister Chronic bronchitis Glaucoma Grandfather Ischemic stroke Grandmother Heart disease Grandfather History of appendectomy Grandmother Heart disease Son Glaucoma Unknown Colon carcinoma Social History Smoking Status: Never smoker Second Hand Exposure: No; Do You Dip or Chew Tobacco: No; Hx Alcohol Use: No Hx Substance Use: No Preferred Language: Moldovan Communication Ability: Effective Costumer Required: No Beliefs That Will Affect Care: None Current Living Situation: Spouse current occupational status: retired Feels Safe at Home: Yes caffeine: Yes Assistive Devices: None Review of Systems Review of Systems: All systems reviewed & are unremarkable except as noted in HPI & below Physical Exam Physical Exam: General Examination: Constitutional: Well developed person in no acute distress. HENT: Normal exam with inspection. CV: Hearth rhythm is regular. Neck: Supple, no carotid bruits. Lungs: Non-labored and comfortable breathing. Abdomen: Soft, non-tender, non-distended. Skin: No rash or ecchymosis. Extremities: No edema or cyanosis NEUROLOGICAL EXAMINATION: Mental Status: Alert and oriented to place, person and time. Cranial Nerves: II-XII are intact except right eye vision loss. No nystagmus in neutral position. Funduscopy: Unable to visualize. Motor: 5/5 in all extremities without asymmetry. Tone: Normal without spasticity or rigidity. Sensory: Intact to all sensory modalities except decreased vibratory sensation in distal lower extremities. Coordination: No dysmetria with FTN testing. Speech: Fluent. Comprehension is intact. Gait: The patient is unsteady on his feet, with some ataxia and wide-based walking pattern. Musculoskeletal: Normal muscle bulk, no atrophy. DTRs: 2+ in upper extremities and 1+ in lower extremities. Plantar flexor bilaterally downgoing. Lali-Hallpike: Positive with right ear down position. The patient experienced severe spinning sensation, with rotatory nystagmus during this maneuver, which subsided with steady state. The patient reported similar sensation for last 2 weeks, with certain head positions. Results & Data Vital Signs (Past 12 Hours) Vital Signs Temp Pulse Resp BP Pulse Ox O2 Del Method 11/08/22 15:54 36.9 C 53 L 14 151/72 H 96 Room Air 11/08/22 11:55 36.6 C 18 167/70 H 94 Room Air 11/08/22 08:10 36.6 C 71 18 136/66 100 Room Air Laboratory Results Laboratory Results - last 24 hr 11/07/22 11/07/22 11/08/22 19:34 23:30 05:34 WBC 6.50 RBC 4.46 L Hgb 13.5 L Hct 39.2 L MCV 87.9 MCH 30.3 MCHC 34.4 RDW Std Deviation 46.7 H RDW Coeff of [place] 14.5 Plt Count 177 MPV 10.8 Immature Gran % (Auto) 0.2 Neut % (Auto) 64.0 Lymph % (Auto) 22.3 Giles % (Auto) 9.8 Eos % (Auto) 2.8 Baso % (Auto) 0.9 Neut # (Auto) 4.16 Lymph # (Auto) 1.45 Giles # (Auto) 0.64 H Eos # (Auto) 0.18 Baso # (Auto) 0.06 Immature Gran # (Auto) 0.01 Sodium Potassium Chloride Carbon Dioxide Anion Gap BUN Creatinine Est Cr Clr Drug Dosing Est GFR ( Amer) Est GFR (Non-Af Amer) BUN/Creatinine Ratio Glucose Estimat Average Glucose Hemoglobin A1c Calcium Triglycerides Cholesterol LDL Cholesterol, Calc VLDL Cholesterol, Calc HDL Cholesterol Cholesterol/HDL Ratio Nasal Screen MRSA (PCR) Negative SARS-CoV-2 (PCR) NEGATIVE Influenza Type A (PCR) Negative Influenza Type B (PCR) Negative RSV (RT-PCR) Negative 11/08/22 11/08/22 05:34 05:34 WBC RBC Hgb Hct MCV MCH MCHC RDW Std Deviation RDW Coeff of [place] Plt Count MPV Immature Gran % (Auto) Neut % (Auto) Lymph % (Auto) Giles % (Auto) Eos % (Auto) Baso % (Auto) Neut # (Auto) Lymph # (Auto) Giles # (Auto) Eos # (Auto) Baso # (Auto) Immature Gran # (Auto) Sodium 137 Potassium 3.4 L Chloride 105 Carbon Dioxide 23 Anion Gap 9 BUN 20 Creatinine 1.09 Est Cr Clr Drug Dosing 50.2 Est GFR ( Amer) 69.9 Est GFR (Non-Af Amer) 60.3 BUN/Creatinine Ratio 18.3 Glucose 97 Estimat Average Glucose 123 Hemoglobin A1c 5.9 H Calcium 8.3 L Triglycerides 88 Cholesterol 123 LDL Cholesterol, Calc 61 VLDL Cholesterol, Calc 18 HDL Cholesterol 44 Cholesterol/HDL Ratio 2.8 Nasal Screen MRSA (PCR) SARS-CoV-2 (PCR) Influenza Type A (PCR) Influenza Type B (PCR) RSV (RT-PCR) Diagnostic Findings Head CTA 11/07/22 09:[address] OF THE BRAIN; CT ANGIOGRAM OF THE BRAIN; CT ANGIOGRAM OF THE NECK CLINICAL HISTORY: Dizziness. COMPARISON STUDY: CT of the brain dated 10/25/2016 TECHNIQUE: Unenhanced axial CT scan of the brain is performed. Subsequently, following the IV administration of 111 of Optiray 320, CT angiogram of the head and neck was performed from the aortic arch to the vertex. Images are reviewed in the axial, sagittal, and coronal planes. 3-D MIPS images are created and assessed. IV contrast was administered without complication. All measurements were calculated based on NASCET criteria. A dose lowering technique was utilized adhering to the principles of ALARA. CT DOSE: 1193.78 mGy.cm FINDINGS: Brain parenchyma: There is age-related involutional change noted in mild subcortical and periventricular microangiopathic disease. There is no hemorrhage, mass effect, or evidence of acute territorial ischemia by CT criteria. There is no evidence of enhancing mass lesion on the angiogram phase images. The ventricles, sulci, and cisterns are prominent secondary to involutional change. Babcock-white matter differentiation is preserved. No extra- axial fluid collection is seen. Thoracic aorta: There is atherosclerotic calcification of the thoracic aorta. Visualized portions of the thoracic aorta are normal in caliber. The aortic arch demonstrates standard 3-vessel anatomy. Right carotid arterial system: The right common carotid artery is widely patent, as are the right internal and external carotid arteries. Calcified plaque is no cecily in the carotid bulb. Left carotid arterial system: The left common carotid artery is widely patent, as are the left internal and external carotid arteries. Calcified plaque is noted in the carotid bulb. Vertebral arteries: The vertebral arteries are widely patent bilaterally and codominant. Subclavian arteries: Widely patent bilaterally. Intracranial vasculature: There is atherosclerotic calcification of the cavernous carotid and vertebral arteries. The internal carotid arteries are patent at the skull base, as are the anterior and middle cerebral arteries bilaterally. The vertebrobasilar system and posterior cerebral arteries are patent. The vertebral arteries are codominant. There is [id number] focal stenosis of the left vertebral artery at the skull base seen on axial image #31. There are foci of moderate to high-grade stenosis involving the proximal posterior cerebral arteries bilaterally. This is seen on the right on image #117 and on the left on image #118. There is moderate focal stenosis of the M2 segment of the left middle cerebral artery seen on coronal image #39. No aneurysm or focal vessel cut off is seen throughout the intracranial circulation. Jugular veins: Patent bilaterally. Dural sinuses: Patent. Lung apices: Partially visualized upper lobe lung parenchyma appears clear. Soft tissues: The visualized pharyngeal soft tissues are normal in appearance noting angiographic phase technique. The oropharyngeal airway appears widely patent. The salivary and thyroid glands are normal in appearance. No cervical lymphadenopathy is seen. Skeletal structures: The skeletal structures are osteopenic. The calvarium appears intact. The cervical spine is maintained noting multilevel spondylosis. No lytic or blastic lesion is seen. Orbits: The bony orbits are intact. Orbital contents are normal as visualized nothing bilateral ocular lens implants. Sinuses and mastoids: There is mild mucosal thickening within the maxillary antra. Maxillary retention cysts measure up to 1.3 cm. The mastoid air cells are well pneumatized. IMPRESSION: 1. There is no hemorrhage, mass effect, or evidence of acute territorial ischemia by CT criteria. 2. The intracranial vessels are patent. 3. There are foci of stenosis involving the left vertebral artery at the skull base, both proximal posterior cerebral arteries, and the M2 segment of the left middle cerebral artery. 4. Unremarkable CT angiogram of the neck. ACT 112: Negative or not required by law. Electronically signed by: Blas Butler M.D. 11/07/2022 10:43 AM Neck CTA 11/07/22 09:[address] OF THE BRAIN; CT ANGIOGRAM OF THE BRAIN; CT ANGIOGRAM OF THE NECK CLINICAL HISTORY: Dizziness. COMPARISON STUDY: CT of the brain dated 10/25/2016 TECHNIQUE: Unenhanced axial CT scan of the brain is performed. Subsequently, following the IV administration of 111 of Optiray 320, CT angiogram of the head and neck was performed from the aortic arch to the vertex. Images are reviewed in the axial, sagittal, and coronal planes. 3-D MIPS images are created and assessed. IV contrast was administered without complication. All measurements w ere calculated based on NASCET criteria. A dose lowering technique was utilized adhering to the principles of ALARA. CT DOSE: 1193.78 mGy.cm FINDINGS: Brain parenchyma: There is age-related involutional change noted in mild subcortical and periventricular microangiopathic disease. There is no hemorrhage, mass effect, or evidence of acute territorial ischemia by CT criteria. There is no evidence of enhancing mass lesion on the angiogram phase images. The ventricles, sulci, and cisterns are prominent secondary to involutional change. Babcock-white matter differentiation is preserved. No extra- axial fluid collection is seen. Thoracic aorta: There is atherosclerotic calcification of the thoracic aorta. Visualized portions of the thoracic aorta are normal in caliber. The aortic arch demonstrates standard 3-vessel anatomy. Right carotid arterial system: The right common carotid artery is widely patent, as are the right internal and external carotid arteries. Calcified plaque is noted in the carotid bulb. Left carotid arterial system: The left common carotid artery is widely patent, as are the left internal and external carotid arteries. Calcified plaque is noted in the carotid bulb. Vertebral arteries: The vertebral arteries are widely patent bilaterally and codominant. Subclavian arteries: Widely patent bilaterally. Intracranial vasculature: There is atherosclerotic calcification of the cavernous carotid and vertebral arteries. The internal carotid arteries are patent at the skull base, as are the anterior and middle cerebral arteries bilaterally. The vertebrobasilar system and posterior cerebral arteries are patent. The vertebral arteries are codominant. There is [id number] focal stenosis of the left vertebral artery at the skull base seen on axial image #31. There are foci of moderate to high-grade stenosis involving the proximal posterior cerebral arteries bilaterally. This is seen on the right on image #117 and on the left on image #118. There is moderate focal stenosis of the M2 segment of the left middle cerebral artery seen on coronal image #39. No aneurysm or focal vessel cut off is seen throughout the intracranial circulation. Jugular veins: Patent bilaterally. Dural sinuses: Patent. Lung apices: Partially visualized upper lobe lung parenchyma appears clear. Soft tissues: The visualized pharyngeal soft tissues are normal in appearance noting angiographic phase technique. The oropharyngeal airway appears widely patent. The salivary and thyroid glands are normal in appearance. No cervical lymphadenopathy is seen. Skeletal structures: The skeletal structures are osteopenic. The calvarium appears intact. The cervical spine is maintained noting multilevel spondylosis. No lytic or blastic lesion is seen. Orbits: The bony orbits are intact. Orbital contents are normal as visualized nothing bilateral ocular lens implants. Sinuses and mastoids: There is mild mucosal thickening within the maxillary antra. Maxillary retention cysts measure up to 1.3 cm. The mastoid air cells are well pneumatized. IMPRESSION: 1. There is no hemorrhage, mass effect, or evidence of acute territorial ischemia by CT criteria. 2. The intracranial vessels are patent. 3. There are foci of stenosis involving the left vertebral artery at the skull base, both proximal posterior cerebral arteries, and the M2 segment of the left middle cerebral artery. 4. Unremarkable CT angiogram of the neck. ACT 112: Negative or not required by law. Electronically signed by: Blas Butler M.D. 11/07/2022 10:43 AM Chest X-Ray 11/07/22 09:02 SINGLE VIEW CHEST CLINICAL HISTORY: Dizziness. FINDINGS: An AP, portable, upright chest radiograph is compared to study dated 10/25/2016. The patient is status post midline sternotomy. The heart is enlarged noting atherosclerotic calcification of the thoracic aorta. The pulmonary vasculature is noncongested. Chronic interstitial thickening is similar to previous. There are scattered calcified granulomas. The lungs and pleural spaces are otherwise clear noting mild bibasilar scarring/atelectasis. No pneumothorax is seen. The skeletal structures are osteopenic. The bony thorax is grossly intact. A left shoulder arthroplasty is in place. IMPRESSION: Cardiomegaly with no active disease in the chest. ACT 112: Negative or not required by law. Electronically signed by: Blas Butler M.D. 11/07/2022 9:[address] 11/07/22 09:[address] OF THE BRAIN; CT ANGIOGRAM OF THE BRAIN; CT ANGIOGRAM OF THE NECK CLINICAL HISTORY: Dizziness. COMPARISON STUDY: CT of the brain dated 10/25/2016 TECHNIQUE: Unenhanced axial CT scan of the brain is performed. Subsequently, following the IV administration of 111 of Optiray 320, CT angiogram of the head and neck was performed from the aortic arch to the vertex. Images are reviewed in the axial, sagittal, and coronal planes. 3-D MIPS images are created and assessed. IV contrast was administered without complication. All measurements were calculated based on NASCET criteria. A dose lowering technique was utilized adhering to the principles of ALARA. CT DOSE: 1193.78 mGy.cm FINDINGS: Brain parenchyma: There is age-related involutional change noted in mild subcortical and periventricular microangiopathic disease. There is no hemorrhage, mass effect, or evidence of acute territorial ischemia by CT criteria. There is no evidence of enhancing mass lesion on the angiogram phase images. The ventricles, sulci, and cisterns are prominent secondary to involutional change. Babcock-white matter differentiation is preserved. No extra- axial fluid collection is seen. Thoracic aorta: There is atherosclerotic calcification of the thoracic aorta. Visualized portions of the thoracic aorta are normal in caliber. The aortic arch demonstrates standard 3-vessel anatomy. Right carotid arterial system: The right common carotid artery is widely patent, as are the right internal and external carotid arteries. Calcified plaque is noted in the carotid bulb. Left carotid arterial system: The left common carotid artery is widely patent, as are the left internal and external carotid arteries. Calcified plaque is noted in the carotid bulb. Vertebral arteries: The vertebral arteries are widely patent bilaterally and codominant. Subclavian arteries: Widely patent bilaterally. Intracranial vasculature: There is atherosclerotic calcification of the cavernous carotid and vertebral arteries. The internal carotid arteries are patent at the skull base, as are the anterior and middle cerebral arteries bilaterally. The vertebrobasilar system and posterior cerebral arteries are patent. The vertebral arteries are codominant. There is [id number] focal stenosis of the left vertebral artery at the skull base seen on axial image #31. There are foci of moderate to high-grade stenosis involving the proximal posterior cerebral arteries bilaterally. This is seen on the right on image #117 and on the left on image #118. There is moderate focal stenosis of the M2 segment of the left middle cerebral artery seen on coronal image #39. No aneurysm or focal vessel cut off is seen throughout the intracranial circulation. Jugular veins: Patent bilaterally. Dural sinuses: Patent. Lung apices: Partially visualized upper lobe lung parenchyma appears clear. Soft tissues: The visualized pharyngeal soft tissues are normal in appearance noting angiographic phase technique. The oropharyngeal airway appears widely patent. The salivary and thyroid glands are normal in appearance. No cervical lymphadenopathy is seen. Skeletal structures: The skeletal structures are osteopenic. The calvarium appears intact. The cervical spine is maintained noting multilevel spondylosis. No lytic or blastic lesion is seen. Orbits: The bony orbits are intact. Orbital contents are normal as visualized nothing bilateral ocular lens implants. Sinuses and mastoids: There is mild mucosal thickening within the maxillary antra. Maxillary retention cysts measure up to 1.3 cm. The mastoid air cells are well pneumatized. IMPRESSION: 1. There is no hemorrhage, mass effect, or evidence of acute territorial ischemia by CT criteria. 2. The intracranial vessels are patent. 3. There are foci of stenosis involving the left vertebral artery at the skull base, both proximal posterior cerebral arteries, and the M2 segment of the left middle cerebral artery. 4. Unremarkable CT angiogram of the neck. ACT 112: Negative or not required by law. Electronically signed by: Blas Butler M.D. 11/07/2022 10:43 AM Brain MRI 11/07/22 12:40 Brain MRI WITHOUT CONTRAST HISTORY: dizzy, ?posterior cva TECHNIQUE: Multiplanar multisequence MRI of the brain was performed without the use of contrast. COMPARISON STUDY: Head CT 11/07/2022. FINDINGS: There is a questionable punctate focus of restricted diffusion within the left periventricular cerebellar hemisphere on image 7. This raises the possibility of a small acute lacunar infarct at this location. Otherwise, no additional areas of restricted diffusion identified. The midline structures are intact. Small retention cysts are seen within the maxillary sinuses. Prior bilateral lens replacement. The major vascular flow-voids at the skull base are well-maintained. There is no mass, hematoma or midline shift. The ventricles and sulci demonstrate moderate age-related involutional changes. Mild periventricular white matter T2 hyperintensity is nonspecific but favors microvascular ischemic change. Small focus of increased T2 signal within the left posterior cerebellar hemisphere suggestive of an old infarct. There is a 3 mm cystic focus within the left cerebellar hemisphere on image 7. This is of doubtful clinical significance and could represent a small perivascular space. IMPRESSION: 1. There is a questionable punctate focus of restricted diffusion within the left periventricular cerebellar hemisphere which raises the possibility of a small acute lacunar infarct at this location. 2. No intracranial hemorrhage. 3. Atrophy and microvascular ischemic changes are noted. ACT 112: Negative or not required by law. Electronically signed by: Kalia Avendano M.D. 11/07/2022 4:15 PM
[2022-11-08] MEDS: DOXAZosin MESYLATE TAB 2 MG TAB PO SCH (20:35)
[2022-11-08] MEDS: SIMVASTATIN 10 MG TAB PO SCH (20:35)
[2022-11-08] MEDS: BRINZOLAMIDE/BRIMONIDINE TART 119 DROPS/8 ML BTL OP SCH (20:36)
[2022-11-08] MEDS: SODIUM CHLORIDE 5% OP SOLN 15 ML BTL OP SCH (20:37)
[2022-11-08] MEDS: MAGNESIUM OXIDE 400 MG TAB PO SCH (20:39)
[2022-11-08] MEDS: BIMATOPROST 0.01% OP SOLN 2.5 ML BTL OP SCH (20:41)
[2022-11-08] MEDS: LEVOBUNOLOL HCL 0.5% OP SOLN 5 ML BTL OP SCH (20:41)
--- NOTE | 2022-11-08 20:50 | Electrocardiogram Report ---
Test Reason : Blood Pressure : / mmHG Vent. Rate : 059 BPM Atrial Rate : 059 BPM P-R Int : 152 ms QRS Dur : 166 ms QT Int : 464 ms P-R-T Axes : 050 011 176 degrees QTc Int : 459 ms Sinus bradycardia Left bundle branch block Abnormal ECG When compared with ECG of 25-OCT-2016 17:41, Left bundle branch block is now Present Confirmed by Norbert Heard ([id number]) on 11/08/2022 8:50:32 PM Referred By: REFERRED SELF Confirmed By:Norbert Heard
--- NOTE | 2022-11-08 21:59 | Hospitalist Progress Note ---
Date of Service November 08, 2022 Assessment & Plan (1) Acute CVA (cerebrovascular accident): Plan: Start clopidogrel 300mg now then 75mg PO daily Continue aspirin 81mg PO daily Given suspected event 2 weeks ago will aim sBP < 180 Consult neurology: patient appears to have sustained a cerebellar infarct which could be attributing to his symptoms. patient will benefit from rehab. Appreicate input from Neuro. (2) Left bundle branch block: Plan: New onset since EKG in 2017 No chest pain or shortness of breath on exertion (3) Idiopathic small fiber peripheral neuropathy: (4) HTN (hypertension): Plan: Continue amlodipine and torsemide Hydralazine 5mg IV q4h PRN for sBP > 200 (5) Stage 3 chronic kidney disease: (6) Gout: Plan: Continue allopurinol Plan VTE Prophylaxis - Lovenox 40mg SQ daily Diet - heart healthy Disposition - admit PCU Admission and Anticipated Discharge Date Admission Date: November 07, 2022 Subjective Patient continues to complain of vertigo. Review of Systems Review of Systems: All systems reviewed & are unremarkable except as noted in HPI & below Physical Exam Physical Exam: Constitutional: WD/WN, vitals as above Eyes: EOM intact bilaterally and + abnormal light reflex (right pupil dilated); + abnormal visual field confrontation (chronic right) ENMT: external ear and nose normal, oropharynx normal Neck: trachea midline, no thyromegaly Respiratory: normal respiratory effort, lungs clear to auscultation Cardiovascular: RRR, no murmur, no edema Gastrointestinal (Abdomen): normal bowel sounds, soft, nontender, no hepatosplenomegaly Musculoskeletal: no cyanosis or clubbing, extremities motor strength 5/5 Skin: no rashes, warm and dry Neurologic: moves all extremities and awake; no focal motor deficits and not confused Psychiatric: A+Ox3, euthymic affect Results & Data Results & Data Vital Signs (Past 12 Hours) Vital Signs Temp Pulse Resp BP Pulse Ox O2 Del Method 11/08/22 20:00 36.7 C 55 L 16 164/88 H 95 Room Air 11/08/22 15:54 36.9 C 53 L 14 151/72 H 96 Room Air 11/08/22 11:55 36.6 C 18 167/70 H 94 Room Air PG Care Time/CCT Total # of Minutes Spent Total Time Spent with Patient: Total time spent is greater than 50% in coordination of care (as documented) at patient's floor/unit and/or counseling patient: Coding Level of Care Code 07749 SUB INP/OBS CARE 350MIN Diagnoses Acute CVA (cerebrovascular accident) I63.9 Left bundle branch block I44.7 Idiopathic small fiber peripheral neuropathy G60.9 HTN (hypertension) I10 Stage 3 chronic kidney disease N18.3 Gout M10.9
--- NOTE | 2022-11-08 22:03 | Electrocardiogram Report ---
Test Reason : Blood Pressure : / mmHG Vent. Rate : 080 BPM Atrial Rate : 080 BPM P-R Int : 162 ms QRS Dur : 162 ms QT Int : 452 ms P-R-T Axes : 070 044 223 degrees QTc Int : 521 ms Poor data quality, interpretation may be adversely affected Normal sinus rhythm Left bundle branch block Abnormal ECG When compared with ECG of 07-NOV-2022 08:53, (unconfirmed) T wave inversion more evident in Inferior leads Confirmed by Norbert Heard ([id number]) on 11/08/2022 10:02:24 PM Referred By: REFERRED SELF Confirmed By:Norbert Heard
[2022-11-09 05:18] LABS: Basophils # (auto) 0.05 K/uL (0-0.2); Basophils % (auto) 0.7 %; Eosinophils # (auto) 0.19 K/uL (0-0.50); Eosinophils % (auto) 2.7 %; Hematocrit (blood only) 35.9 % (42.0-52.0); Hemoglobin 12.6 g/dl (14.0-18.0); Immature Granulocytes # (auto) 0.01 K/uL (0.01-0.20); Immature Granulocytes % (auto) 0.1 %; Lymphocytes # (auto) 1.68 K/uL (1.2-3.4); Lymphocytes % (auto) 24.1 %; Mean Corpuscular Hemoglobin 30.5 pg (25.0-34.0); Mean Corpuscular Hgb Conc 35.1 g/dL (32.0-36.0); Mean Corpuscular Volume 86.9 fL (80.0-100.0); Monocytes # (auto) 0.84 K/uL (0.11-0.59); Monocytes % (auto) 12.1 %; Neutrophils % (auto) 60.3 %; Platelet Count 183 K/uL (130-400); RDW Coefficient of Variation 14.7 % (11.5-14.5); RDW Standard Deviation 47.2 fL (36.4-46.3); Red Blood Count 4.13 M/uL (4.70-6.10); White Blood Count 6.97 K/ul (4.8-10.8)
[2022-11-09 05:36] LABS: BUN Creatinine Ratio 23.4 (10-20); Calcium 8.4 mg/dl (8.6-10.3); Creatinine Clr Calc Pharmacy 42.8 ml/min; Est GFR (African American) 57.5 ml/min; Est GFR (Non-African American) 49.6 ml/min; Potassium 3.3 mmol/L (3.5-5.1)
[2022-11-09] MEDS: allopurinoL 100 MG TAB PO SCH (08:06)
[2022-11-09] MEDS: ASPIRIN 81 MG ECTAB PO SCH (08:07)
[2022-11-09] MEDS: amLODIPine BESYLATE 5 MG TAB PO SCH ×2 (08:07)
[2022-11-09] MEDS: ENOXAPARIN INJ 40 MG/0.4 ML SYR SQ SCH (08:08)
[2022-11-09] MEDS: CYANOCOBALAMIN (B-12) 500 MCG TABLET PO SCH (08:08)
[2022-11-09] MEDS: CLOPIDOGREL BISULFATE 75 MG TAB PO SCH (08:08)
[2022-11-09] MEDS: PSYLLIUM or GUAR GUM FIBER POWDER PACKET PO SCH (08:09)
[2022-11-09] MEDS: TORSEMIDE 20 MG TAB PO SCH (08:09)
[2022-11-09] MEDS: POTASSIUM CHLORIDE CRTAB 20 MEQ TABCR PO SCH (08:11)
[2022-11-09] MEDS: SODIUM CHLORIDE 5% OP SOLN 15 ML BTL OP SCH ×4 (10:32→21:24)
[2022-11-09] MEDS: BRINZOLAMIDE/BRIMONIDINE TART 119 DROPS/8 ML BTL OP SCH ×3 (10:34→21:24)
[2022-11-09] MEDS ORDERED: POTASSIUM CHLORIDE CRTAB 20 MEQ TABCR PO STA (11:26)
[2022-11-09] MEDS ORDERED: lisinopril 10 MG TAB PO SCH (11:30)
[2022-11-09] MEDS: DOXAZosin MESYLATE TAB 2 MG TAB PO SCH (20:31)
[2022-11-09] MEDS: SIMVASTATIN 10 MG TAB PO SCH (20:32)
[2022-11-09] MEDS ORDERED: RHOPRESSA 0.02% OP SCH (21:00)
[2022-11-09] MEDS ORDERED: LEVOBUNOLOL HCL 0.5% OP SOLN 5 ML BTL OP SCH (21:00)
[2022-11-09] MEDS ORDERED: BIMATOPROST 0.01% OP SOLN 2.5 ML BTL OP SCH (21:00)
[2022-11-09] MEDS: MAGNESIUM OXIDE 400 MG TAB PO SCH (21:16)
--- NOTE | 2022-11-09 23:04 | Hospitalist Progress Note ---
Date of Service November 09, 2022 Assessment & Plan (1) Acute CVA (cerebrovascular accident): Plan: Start clopidogrel 300mg now then 75mg PO daily Continue aspirin 81mg PO daily Given suspected event 2 weeks ago will aim sBP < 180 Consult neurology: patient appears to have sustained a cerebellar infarct which could be attributing to his symptoms. patient will benefit from rehab. Appreicate input from Neuro. Blood pressure remained elevated. will add lisinopril 10 mg x1. will monitor his BP. May consider cutting back on his dose depening on how he responds. (2) Left bundle branch block: Plan: New onset since EKG in 2017 No chest pain or shortness of breath on exertion (3) Idiopathic small fiber peripheral neuropathy: (4) HTN (hypertension): Plan: Continue amlodipine and torsemide Hydralazine 5mg IV q4h PRN for sBP > 200 added lisinopril as goal will be to slowly lower BP (5) Stage 3 chronic kidney disease: (6) Gout: Plan: Continue allopurinol Plan VTE Prophylaxis - Lovenox 40mg SQ daily Diet - heart healthy Disposition - admit PCU Admission and Anticipated Discharge Date Admission Date: November 07, 2022 Subjective 87 yo male reports still having vertigo. Review of Systems Review of Systems: All systems reviewed & are unremarkable except as noted in HPI & below Physical Exam Physical Exam: Constitutional: WD/WN, vitals as above Eyes: EOM intact bilaterally and + abnormal light reflex (right pupil dilated); + abnormal visual field confrontation (chronic right) ENMT: external ear and nose normal, oropharynx normal Neck: trachea midline, no thyromegaly Respiratory: normal respiratory effort, lungs clear to auscultation Cardiovascular: RRR, no murmur, no edema Gastrointestinal (Abdomen): normal bowel sounds, soft, nontender, no hepatosplenomegaly Musculoskeletal: no cyanosis or clubbing, extremities motor strength 5/5 Skin: no rashes, warm and dry Neurologic: moves all extremities and awake; no focal motor deficits and not confused Psychiatric: A+Ox3, euthymic affect Results & Data Results & Data Vital Signs (Past 12 Hours) Vital Signs Temp Pulse Pulse Resp BP BP Pulse Ox 11/09/22 18:29 36.7 C 54 L 16 147/60 H 96 11/09/22 17:00 56 L 17 11/09/22 17:00 135/63 11/09/22 16:30 155/78 H 11/09/22 16:30 50 L 18 11/09/22 16:00 47 L 14 11/09/22 16:00 125/62 11/09/22 15:52 48 L 9 L 96 11/09/22 15:52 142/53 H 11/09/22 15:00 45 L 14 11/09/22 15:00 106/50 L 11/09/22 14:00 52 L 17 11/09/22 14:00 127/52 L 11/09/22 13:22 163/63 H 11/09/22 13:22 63 19 11/09/22 14:46 51 L 11/09/22 13:00 55 L 18 11/09/22 13:00 143/66 H 11/09/22 12:07 158/73 H 11/09/22 12:07 59 L 21 97 11/09/22 11:30 62 28 H 11/09/22 11:25 177/84 H O2 Del Method 11/09/22 18:29 Room Air 11/09/22 17:00 11/09/22 17:00 11/09/22 16:30 11/09/22 16:30 11/09/22 16:00 11/09/22 16:00 11/09/22 15:52 11/09/22 15:52 11/09/22 15:00 11/09/22 15:00 11/09/22 14:00 11/09/22 14:00 11/09/22 13:22 11/09/22 13:22 11/09/22 14:46 11/09/22 13:00 11/09/22 13:00 11/09/22 12:07 11/09/22 12:07 11/09/22 11:30 11/09/22 11:25 PG Care Time/CCT Total # of Minutes Spent Total Time Spent with Patient: Total time spent is greater than 50% in coordination of care (as documented) at patient's floor/unit and/or counseling patient: Coding Level of Care Code 19517 SUB INP/OBS CARE 2/35MIN Diagnoses Acute CVA (cerebrovascular accident) I63.9 Left bundle branch block I44.7 Idiopathic small fiber peripheral neuropathy G60.9 HTN (hypertension) I10 Stage 3 chronic kidney disease N18.3 Gout M10.9
[2022-11-10 05:39] LABS: Basophils # (auto) 0.05 K/uL (0-0.2); Basophils % (auto) 0.7 %; Eosinophils # (auto) 0.21 K/uL (0-0.50); Hematocrit (blood only) 35.6 % (42.0-52.0); Hemoglobin 12.3 g/dl (14.0-18.0); Immature Granulocytes # (auto) 0.01 K/uL (0.01-0.20); Immature Granulocytes % (auto) 0.1 %; Lymphocytes # (auto) 1.61 K/uL (1.2-3.4); Lymphocytes % (auto) 23.2 %; Mean Corpuscular Hemoglobin 30.4 pg (25.0-34.0); Mean Corpuscular Hgb Conc 34.6 g/dL (32.0-36.0); Mean Corpuscular Volume 88.1 fL (80.0-100.0); Mean Platelet Volume 10.6 fL (9.4-12.4); Monocytes # (auto) 0.83 K/uL (0.11-0.59); Neutrophils # (auto) 4.23 K/uL (1.40-6.50); Platelet Count 165 K/uL (130-400); RDW Coefficient of Variation 14.6 % (11.5-14.5); RDW Standard Deviation 47.5 fL (36.4-46.3); Red Blood Count 4.04 M/uL (4.70-6.10); White Blood Count 6.94 K/ul (4.8-10.8)
[2022-11-10 05:54] LABS: BUN Creatinine Ratio 29.6 (10-20); Calcium 7.9 mg/dl (8.6-10.3); Creatinine Clr Calc Pharmacy 49.5 ml/min; Est GFR (African American) 70.6 ml/min; Potassium 3.8 mmol/L (3.5-5.1)
[2022-11-10] MEDS ORDERED: lisinopril 5 MG TAB PO SCH (09:00)
[2022-11-10] MEDS: ASPIRIN 81 MG ECTAB PO SCH (09:27)
[2022-11-10] MEDS: allopurinoL 100 MG TAB PO SCH (09:27)
[2022-11-10] MEDS: TORSEMIDE 20 MG TAB PO SCH (09:27)
[2022-11-10] MEDS: CLOPIDOGREL BISULFATE 75 MG TAB PO SCH (09:27)
[2022-11-10] MEDS: CYANOCOBALAMIN (B-12) 500 MCG TABLET PO SCH (09:28)
[2022-11-10] MEDS: amLODIPine BESYLATE 5 MG TAB PO SCH (09:28)
[2022-11-10] MEDS: ENOXAPARIN INJ 40 MG/0.4 ML SYR SQ SCH (09:30)
[2022-11-10] MEDS: PSYLLIUM or GUAR GUM FIBER POWDER PACKET PO SCH (09:30)
[2022-11-10] MEDS: SODIUM CHLORIDE 5% OP SOLN 15 ML BTL OP SCH (09:33)
[2022-11-10] MEDS: BRINZOLAMIDE/BRIMONIDINE TART 119 DROPS/8 ML BTL OP SCH (09:33)
[2022-11-10] MEDS: POTASSIUM CHLORIDE CRTAB 20 MEQ TABCR PO SCH (09:37)
[2022-11-10] MEDS ORDERED: STROKE PATIENT DISCHARGE STA (12:06)
--- NOTE | 2022-11-10 12:08 | Discharge Summary ---
Date of Service November 10, 2022 Admission HPI Per Admitting Provider Jensen Moncada is an 87 year old male who presents to the ER with vertigo. He reports sudden onset room spinning sensation starting 2 weeks ago. No precipitating event. He is unable to remember what he was doing when he first had his symptoms. Getting progressively worse during this time. Associated ambulatory dysfunction. No acute change in vision, speech or hearing. No one sided weakness or change in sensation. No facial droop. 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 Never had vertigo previously in the past. 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 Last night he was so unsteady helping his to the bathroom he was concerned for both his own and his 's health that he asked his son to bring him to the ER today. Vertigo sensation only occurs whenever he is turning his head. Principal Diagnosis Acute CVA Discharge Exam Constitutional: WD/WN, vitals as above Eyes: EOM intact bilaterally and + abnormal light reflex (right pupil dilated); + abnormal visual field confrontation (chronic right) ENMT: external ear and nose normal, oropharynx normal Neck: trachea midline, no thyromegaly Respiratory: normal respiratory effort, lungs clear to auscultation Cardiovascular: RRR, no murmur, no edema Gastrointestinal (Abdomen): normal bowel sounds, soft, nontender, no hepatosplenomegaly Musculoskeletal: no cyanosis or clubbing, extremities motor strength 5/5 Skin: no rashes, warm and dry Neurologic: moves all extremities and awake; no focal motor deficits and not confused Psychiatric: A+Ox3, euthymic affect Discharge Data Allergies Allergy/AdvReac Type Severity Reaction Status Date / Time No Known Drug Allergies Allergy Verified 10/28/22 14:13 Consultations 11/08/22 14:15 Consult Neurology Routine Ordered Studies 11/07/22 09:01 CT angio head w con Stat CT angio neck with con Stat 11/07/22 09:02 CT head/brain wo con Stat 11/07/22 12:40 MR brain wo con Stat Hospital Course (1) Acute CVA (cerebrovascular accident): Start clopidogrel 300mg now then 75mg PO daily Continue aspirin 81mg PO daily Given suspected event 2 weeks ago will aim sBP < 180 Consult neurology: patient appears to have sustained a cerebellar infarct which could be attributing to his symptoms. patient will benefit from rehab. Appreciate input from Neuro. Blood pressure improved, will consider discharging on lisinopril 5 mg po HS and amlodipine 5 mg PO AM. If BP remains above goal, will consider increasing lisinopril at 10 mg at PCP followup. (2) Left bundle branch block: New onset since EKG in 2017 No chest pain or shortness of breath on exertion (3) Idiopathic small fiber peripheral neuropathy: (4) HTN (hypertension): Continue amlodipine and torsemide Hydralazine 5mg IV q4h PRN for sBP > 200 added lisinopril as goal will be to slowly lower BP (5) Stage 3 chronic kidney disease: (6) Gout: Continue allopurinol Plan VTE Prophylaxis - Lovenox 40mg SQ daily Diet - heart healthy Disposition - admit PCU Total Time Total Time Spent Total Time Spent (In Minutes): 32 Discharge Plan Discharge Items Patient Disposition: Transfer Inpatient Rehab Fac Reason For Visit: ACUTE CVA, VERTIGO Discharge Diagnosis: acute CVA Activity: Resume your previous activity Non-emergency contact: Primary Care Provider Call non-emergency contact if: you have any medication questions Follow-up/Referrals: Neva Bunch PA-C [Primary Care Provider] - Diet: Heart Healthy and Low Sodium (2gm) Addtl Attending Provider Instructions: Good afternoon Mr. Moncada, You were diagnosed with a stroke. We will place you on Plavix 75 mg and aspirin for the next 18 days to complete 3 weeks. Then we will switch to plavix. We will switch your cholesterol medicine to atorvastatin. We will gradually decrease your blood pressure to a goal of below 140/80. We will place you on lisinopril 5 mg PO PM and continue amlodipine at 5 mg in the morning. If we need to increase BP meds, we could consider increasing lisinopril to 10 mg below going back to 7.5mg of amlodipine. You have been suffering from positional vertigo for last 2 weeks. Lali-Hallpike maneuver is suggestive of right BPPV. In case of persistent positional vertigo, Talia's maneuvers should be retried. Will need PCP followup in 1-2 weeks Pending Studies at Discharge: No Stand-Alone Forms: My [facility] Skilled Items Patient informed of condition?: No DNR: Yes Discharge Level of Care: Acute rehab Communicable Disease: No Discharge Prognosis: Stable Lines: None Urinary Catheter: No Medications and DC Order Prescriptions: New atorvastatin 40 mg tablet 40 mg PO PM Qty: 30 0RF clopidogrel 75 mg Tablet 75 mg PO QAM Qty: 0 0RF lisinopril [Zestril] 5 mg Tablet 5 mg PO PM Qty: 30 0RF Continued potassium chloride 20 mEq tablet extended release 20 meq PO DAILY Qty: 90 1RF torsemide 20 mg tablet 20 mg PO DAILY Qty: 90 3RF aspirin 81 mg tablet,delayed release (DR/EC) 81 mg PO DAILY Qty: 90 3RF alpha lipoic acid 600 mg capsule 600 mg PO BID Qty: 180 3RF bimatoprost 0.01 % drops 1 drops OP DAILY Qty: 7.5 0RF cyanocobalamin (vitamin B-12) 1,000 mcg tablet 1,000 mcg PO DAILY Qty: 90 3RF sodium chloride 2 % drops 1 drops OP QID Qty: 15 0RF amlodipine 5 mg tablet 5 mg PO DAILY Qty: 90 3RF Rx Instructions: in addition to 2.5mg dose allopurinol 100 mg tablet 100 mg PO DAILY Qty: 90 3RF levobunolol 0.5 % drops 1 drp ophthalmic (eye) DAILY Simbrinza 1-0.2 % Drops,Suspension 1 drp ophthalmic (eye) TID magnesium oxide 250 mg magnesium Tablet 250 mg PO HS doxazosin 2 mg tablet 2 mg PO HS psyllium Packet 1 packet PO DAILY Rx Instructions: mix into at least 8 oz of water or juice before administering Rhopressa 0.02 % Drops 1 drp OPHTHALMIC (EYE) PM Discontinued amlodipine 2.5 mg tablet 2.5 mg PO DAILY Qty: 90 3RF Rx Instructions: in addition to 5mg dose simvastatin 10 mg tablet 10 mg PO HS Discharge Orders: Discharge Order (Routine); Ordered 11/10/22 Ordered By: Jerry Brown Admission Data Admit Date/Time: 11/07/22 17:08 Attending Provider: Jerry Brown Admit Provider: Bandar Mcknight Primary Care Provider: Neva Bunch Other Providers: Tevin Parra ; [facility] ; [facility],Health Coding Level of Care Code 35610 INP/OBS DISCH >30 MIN Diagnoses Acute CVA (cerebrovascular accident) I63.9 Left bundle branch block I44.7 Idiopathic small fiber peripheral neuropathy G60.9 HTN (hypertension) I10 Stage 3 chronic kidney disease N18.3 Gout M10.9
== END 2022-11-10 13:26 | DRG 66 ==
LOC: ED 08:14 → SUATTDRO 17:08 → EDINP 17:08 → 1E 20:39 → 4W 11-09 18:45
DX: Z79.899 Other long term (current) drug therapy; N18.30 Chronic kidney disease, stage 3 unspecified; H81.11 Benign paroxysmal vertigo, right ear; I44.7 Left bundle-branch block, unspecified; Z20.822 Contact with and (suspected) exposure to COVID-19; Z79.82 Long term (current) use of aspirin; G60.8 Other hereditary and idiopathic neuropathies; M10.9 Gout, unspecified; Z95.1 Presence of aortocoronary bypass graft; I12.9 Hypertensive chronic kidney disease with stage 1 through stage 4 chronic kidney disease, or unspecified chronic kidney disease; I70.8 Atherosclerosis of other arteries; I63.9 Cerebral infarction, unspecified

== ENCOUNTER 2023-11-15 05:11 | Observation (INO) ==
--- NOTE | 2023-11-15 05:37 | Emergency Department Note ---
History of Present Illness General Chief complaint: Cardiac Assessment Stated complaint: DISORIENTATION,VERTIGO Time Seen by Provider: 11/15/23 05:23 Source: patient, family (Son who is at the bedside), RN notes reviewed and old records reviewed Mode of arrival: ambulatory Limitations: no limitations History of Present Illness This patient 88-year-old male who has a history of coronary artery disease, CVA, on Plavix hypertension and other medical problems, comes in after waking up around 4:00 in the morning and was disoriented. He also felt very off balance like he would fall over. He denies any headache he denies any acute visual changes. 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 He had no fever no fall no focal numbness or weakness no difficulty speaking or swallowing. His son is at the bedside and feels that he is more disoriented than baseline and feels like this was similar to when he had a stroke last year. 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 Home Medications Medication Instructions Recorded Confirmed Type alpha lipoic acid 600 mg capsule 600 mg PO BID #180 caps 01/02/19 09/04/23 Rx bimatoprost 0.01 % eye drops 1 drops ophthalmic (eye) DAILY 01/02/19 09/04/23 Rx #7.5 mL cyanocobalamin (vitamin B-12) 1,000 mcg PO DAILY #90 tabs 01/02/19 09/04/23 Rx 1,000 mcg tablet sodium chloride 2 % eye drops 1 drops ophthalmic (eye) QID #15 mL 01/02/19 09/04/23 Rx levobunolol 0.5 % eye drops 1 drp ophthalmic (eye) DAILY 06/05/22 09/04/23 History brinzolamide 1 %-brimonidine 0.2 % 1 drp ophthalmic (eye) TID 11/07/22 09/04/23 History eye drops,suspension (Simbrinza) magnesium oxide 250 mg PO HS 11/07/22 09/04/23 History netarsudil 0.02 % eye drops 1 drp ophthalmic (eye) PM 11/09/22 09/04/23 History (Rhopressa) allopurinol 100 mg tablet 100 mg PO DAILY #90 tabs 01/23/23 09/04/23 Rx doxazosin 2 mg tablet 2 mg PO HS #90 tabs 02/25/23 09/04/23 Rx lisinopril 20 mg tablet See Rx Instructions .Route 04/14/23 09/04/23 Rx .COMPLEX #90 tabs amlodipine 10 mg tablet 10 mg PO DAILY #90 tabs 06/13/23 09/04/23 Rx atorvastatin 40 mg tablet 40 mg PO PM #90 tabs 07/03/23 09/04/23 Rx potassium chloride 20 mEq 20 meq PO DAILY #90 tabs 09/03/23 09/04/23 Rx tablet,extended release clopidogrel 75 mg tablet 75 mg PO QAM #90 tabs 09/25/23 Rx torsemide 20 mg tablet 20 mg PO DAILY #90 tabs 10/09/23 Rx Allergies Allergy/AdvReac Type Severity Reaction Status Date / Time No Known Drug Allergies Allergy Verified 09/04/23 13:37 Past Med/Surg History Medical History Right knee DJD Vitamin B12 deficiency Stage 3 chronic kidney disease Idiopathic small fiber peripheral neuropathy Hypertensive kidney disease with CKD stage III Gout Glucose intolerance (impaired glucose tolerance) Glaucoma, pigmentary Erectile dysfunction ASCVD (arteriosclerotic cardiovascular disease) Surgical History H/O wrist surgery titanium screw placement in 1989- scaphoid bone H/O shoulder surgery 2003- left titanium upper shoulder- partial replacement ball and socket H/O prostatectomy retropubic radical with nerve sparing [place]- Dr. Rodríguez 2006 H/O eye surgery 1969 and 1979 detached retina and trabeculectomy Hx of CABG double bypass surgery- 1989 Status post double vessel coronary artery bypass Family History Father FHx: kidney cancer Mother Ischemic stroke Hyperlipidemia associated with type 2 diabetes mellitus Glaucoma Hypertension Sister Chronic bronchitis Glaucoma Grandfather Ischemic stroke Grandmother Heart disease Grandfather History of appendectomy Grandmother Heart disease Son Glaucoma Unknown Colon carcinoma Social History Smoking Status: Never smoker Second Hand Exposure: No; Do You Dip or Chew Tobacco: No; Hx Alcohol Use: No Hx Substance Use: No Preferred Language: Northern Irish Communication Ability: Effective Oracle Application Architect Required: No Beliefs That Will Affect Care: None Current Living Situation: Spouse current occupational status: retired Feels Safe at Home: Yes caffeine: Yes Seatbelt Use: always Assistive Devices: None Review of Systems A total of 10 systems reviewed and were otherwise negative Physical Exam Vital Signs Vital Signs - 24 hr 11/15/23 05:15 11/15/23 05:26 11/15/23 05:30 Temperature 36.8 C Temperature Source Oral Pulse Rate 52 L 47 L 46 L Pulse Rate [Apical] Pulse Rate from SpO2 Sensor 47 L Respiratory Rate 18 14 Respiratory Effort / Characteristics Non-Labored Respiratory Depth Normal Respiratory Pattern Blood Pressure 168/62 H 182/71 H Blood Pressure [Right Arm] Blood Pressure Mean 97 108 Blood Pressure Mean [Right Arm] Blood Pressure Position [Right Arm] Pulse Oximetry 99 100 Oxygen Delivery Method Room Air Room Air Sepsis New/Unexplained Change in Mental Status N/A Sepsis Action Taken by Nursing No Action Required 11/15/23 05:54 11/15/23 06:00 11/15/23 06:30 Temperature Temperature Source Pulse Rate 48 L 46 L 44 L Pulse Rate [Apical] Pulse Rate from SpO2 Sensor 48 L 46 L 44 L Respiratory Rate 13 18 12 Respiratory Effort / Characteristics Respiratory Depth Respiratory Pattern Blood Pressure 164/67 H 164/68 H 165/75 H Blood Pressure [Right Arm] Blood Pressure Mean 99 100 105 Blood Pressure Mean [Right Arm] Blood Pressure Position [Right Arm] Pulse Oximetry 99 100 97 Oxygen Delivery Method Room Air Room Air Room Air Sepsis New/Unexplained Change in Mental Status Sepsis Action Taken by Nursing 11/15/23 07:00 Temperature Temperature Source Pulse Rate Pulse Rate [Apical] 46 L Pulse Rate from SpO2 Sensor Respiratory Rate 18 Respiratory Effort / Characteristics Non-Labored Spontaneous Respiratory Depth Normal Respiratory Pattern Regular Blood Pressure Blood Pressure [Right Arm] 171/83 H Blood Pressure Mean Blood Pressure Mean [Right Arm] 112 Blood Pressure Position [Right Arm] Lying Pulse Oximetry 99 Oxygen Delivery Method Room Air Sepsis New/Unexplained Change in Mental Status Sepsis Action Taken by Nursing General: Well developed well nourished older male who appears in no acute distress, breathing comfortably on room air. Normal speech nonslurred. He is alert oriented to person and place but not date. He seems to answer most questions appropriately HEENT: Normal cephalic atraumatic. Pupils are equal round and reactive to light. Injection of the sclera mostly on the left which is chronic extraocular movements are intact. Oropharynx is pink with moist mucous membranes. No swelling of the mouth lips or tongue. Neck: Supple with a midline trachea. No meningeal signs or stiffness, no JVD or bruits. No Stridor. Chest: Clear to auscultation bilaterally. No wheezes or rhonchi. No increased work of breathing. Heart: Regular rate and rhythm without murmurs or gallops. Abdomen: Soft nontender, nondistended without rebound guarding or rigidity. Extremities: No cyanosis clubbing or edema. No calf tenderness or assymetry Spine/Back. Non tender to palpation. No CVA tenderness Skin: Good turgor without rashes. Neurologic exam: Cranial nerves two through 12 are intact. Motor and sensation are intact and symmetrical throughout. Course Administered Medications Discontinued Medications Ioversol (Optiray 320 125ml) 119 ml IV ONCE ONE Stop: 11/15/23 05:48 Last Admin: 11/15/23 05:49 Dose: 119 ml Documented By: WILMAR Medical Decision Making Differential Diagnosis Stroke,, intracranial process or hemorrhage, cardiac disease, hypoglycemia, electrolyte or metabolic abnormality, infection Medical Records Attestation: I reviewed the patient's medical records. Home Medications Current Medication List: was personally reviewed by me Laboratory Data Attestation: I reviewed the patient's lab results. 11/15/23 05:34 11/15/23 05:34 Lab Results 11/15/23 Range/Units 05:34 WBC 6.54 (4.8-10.8) K/ul RBC 4.38 L (4.70-6.10) M/uL Hgb 13.3 L (14.0-18.0) g/dl Hct 39.6 L (42.0-52.0) % MCV 90.4 (80.0-100.0) fL MCH 30.4 (25.0-34.0) pg MCHC 33.6 (32.0-36.0) g/dL RDW Std Deviation 51.4 H (36.4-46.3) fL RDW Coeff of [place] 15.4 H (11.5-14.5) % Plt Count 208 (130-400) K/uL MPV 10.5 (9.4-12.4) fL Immature Gran % (Auto) 0.3 % Neut % (Auto) 63.6 % Lymph % (Auto) 23.7 % Falls % (Auto) 9.3 % Eos % (Auto) 2.3 % Baso % (Auto) 0.8 % Neut # (Auto) 4.16 (1.40-6.50) K/uL Lymph # (Auto) 1.55 (1.20-3.40) K/uL Falls # (Auto) 0.61 H (0.11-0.59) K/uL Eos # (Auto) 0.15 (0.00-0.50) K/uL Baso # (Auto) 0.05 (0.00-0.20) K/uL Immature Gran # (Auto) 0.02 (0.01-0.20) K/uL PT Cancelled INR Cancelled APTT Cancelled PTT Ratio Cancelled Sodium 138 (136-145) mmol/L Potassium 3.9 (3.5-5.1) mmol/L Chloride 108 H (98-107) mmol/L Carbon Dioxide 23 (21-32) mmol/L Anion Gap 7 (3-11) BUN 29 H (6-23) mg/dl Creatinine 1.18 (0.6-1.4) mg/dl Est Cr Clr Drug Dosing 45.1 ml/min Est GFR ( Amer) 63.0 ml/min Est GFR (Non-Af Amer) 54.4 ml/min BUN/Creatinine Ratio 24.6 H (10-20) Glucose 99 (70-99(Fasting)) mg/dl Calcium 9.3 (8.6-10.3) mg/dl Magnesium 2.1 (1.7-2.4) mg/dl Total Bilirubin 0.8 (0.2-1.0) mg/dl AST 17 (13-39) U/L ALT 16 (7-52) U/L Alkaline Phosphatase 53 (34-104) U/L Troponin I High Sens 9.7 (0-20) pg/ml Total Protein 6.9 (6.0-8.3) gm/dl Albumin 4.2 (3.4-5.0) gm/dl Globulin 2.7 (2.5-4.0) gm/dl Albumin/Globulin Ratio 1.6 (0.9-2) Imaging Data Attestation: I personally reviewed and interpreted this imaging study as follows: My Impression: Head CTno hemorrhage or mass effect seen Radiologist's Impression: Head CT 11/15/23 05:32 CR Exam(s): CT HEAD Without Contrast EXAM: CT Head Without Intravenous Contrast CLINICAL HISTORY: Reason for exam: neuro deficit, acute stroke suspected. TECHNIQUE: Axial computed tomography images of the head/brain without intravenous contrast. CTDI is 35.65 mGy and DLP is 624.41 mGy-cm. Automated exposure control was utilized for the study. A dose lowering technique was utilized adhering to the principles of ALARA. COMPARISON: No relevant prior studies available. FINDINGS: Brain: Unremarkable. No hemorrhage. No significant white matter disease. No edema. Ventricles: Unremarkable. No ventriculomegaly. Bones/joints: Unremarkable. No acute fracture. Soft tissues: Unremarkable. Sinuses: Mucous retention cysts are seen in bilateral maxillary sinuses. Mastoid air cells: Unremarkable as visualized. No mastoid effusion. IMPRESSION: No acute intracranial abnormality Communications: Call Doctor Stroke Electronically signed by: Jarad Macias MD 11/15/23 06:09 AM Neck CTA 11/15/23 05:32 CR Exam(s): CTA NECK With Contrast IV Amt: 119 ml opti 320 EXAM: CT Angiography Neck With Intravenous Contrast CLINICAL HISTORY: Reason for exam: neuro deficit, acute stroke suspected. TECHNIQUE: Routine carotid CT angiography protocol was performed with intravenous contrast. NASCET criteria using the distal ICAs for comparison were used for evaluation of stenoses. CTDI is 29.06 mGy and DLP is 520.66 mGy-cm. Automated exposure control was utilized for the study. A dose lowering technique was utilized adhering to the principles of ALARA. MIP reconstructed images were created and reviewed. CONTRAST: Patient received 119 ml opti 320 of IV contrast COMPARISON: None. FINDINGS: VASCULATURE: Right common carotid artery: Unremarkable. No occlusion or significant stenosis. No dissection. Right internal carotid artery: Moderate atherosclerotic calcification seen in the proximal right cervical internal carotid artery. Right external carotid artery: Unremarkable. No occlusion. Right vertebral artery: Unremarkable. No occlusion or significant stenosis. No dissection. Left common carotid artery: Unremarkable. No occlusion or significant stenosis. No dissection. Left internal carotid artery: Moderate atherosclerotic calcification seen in the proximal left cervical internal carotid artery. Left external carotid artery: Unremarkable. No occlusion. Left vertebral artery: Unremarkable. No occlusion or significant stenosis. No dissection. NECK: Bones/joints: Unremarkable. No acute fracture. Soft tissues: Unremarkable. Thyroid: 4 mm nodular calcifications seen in the right lobe of the thyroid gland. Lung apices: Clear. CAROTID STENOSIS REFERENCE USING NASCET CRITERIA: % ICA stenosis = (1 - narrowest ICA diameter/diameter of distal cervical ICA) x 100. Mild - <50% stenosis. Moderate - 50-69% stenosis. Severe - 70-94% stenosis. Near occlusion - 95-99% stenosis. Occluded - 100% stenosis. IMPRESSION: No evidence of hemodynamically significant carotid stenosis Communications: Call Doctor Stroke Electronically signed by: Jarad Macias MD 11/15/23 06:14 AM ECG Data Attestation: I personally reviewed and interpreted this ECG as follows: Indication: + weakness Rate (beats per minute): 45 Rhythm: + sinus bradycardia and + sinus with SA ECG Intervals/blocks: + Left bundle branch block ECG Esmond: + Normal ECG ST segments: + Normal ST segments ECG Findings: no PACs or no PVCs Comparison ECG Date: from (11/08/2022) Change: the following changes noted (Rate has decreased otherwise no change) MDM Narrative This patient comes in as described above I saw him in room A3. I talked to the patient and his son and quickly was concerned for possible stroke. he seems like he does have weakness when walking and feels off balance. Reviewing his chart, he does have a vertebral artery stenosis on the left side/angiography. This could also be related to infection or electrolyte or metabolic abnormality or cardiac disease as a full workup was done and I did call a stroke alert to help expedite his care. He did wake up this way at 4:00 in the morning and his last known well was 22 00. He is also on Plavix. I did discuss the case at length with Dr. Jenkins who is the [place] stroke neurologist. He felt that the memory loss was progressive over the last 6 to 8 months he did not feel the patient was a tPA candidate due to being outside the window and having minimal symptoms. He is also on Plavix. He did not feel like he was a candidate for a medical thrombectomy. His EKG does show sinus bradycardia with a baseline left bundle branch block. He is normotensive with this. He has no white count or fever to suggest infection. He has no significant electrolyte or metabolic abnormalities. His BUN is mildly elevated he was given gentle rehydration with a 500 cc normal saline bolus. His initial troponin was also negative. Given his symptoms I do think he needs to be admitted/observed and will discuss the case with Dr. Mulligan, the [facility] hospitalist. Continuous cardiac monitoring: Orders placed in EMR for continuous monitor tech: Upon my evaluation patient noted to be sinus bradycardia with a rate of 50 Impression & Plan Stroke-like symptoms, Acute confusion, LBBB (left bundle branch block), Dizziness, Bradycardia, sinus Discharge Plan Visit Data Chief Complaint: Cardiac Assessment Stated Complaint: DISORIENTATION,VERTIGO ED Provider: Damian Brooks Discharge Problem: Stroke-like symptoms, Acute confusion, LBBB (left bundle branch block), Dizziness, Bradycardia, sinus Forms Stand Alone Forms: My [facility] Prescriptions Prescriptions: No Action allopurinol 100 mg tablet 100 mg PO DAILY Qty: 90 3RF lisinopril 20 mg tablet See Rx Instructions .ROUTE .COMPLEX Qty: 90 3RF Dose Instruction: take 1 tablet by mouth IN THE EVENING Rx Instructions: take 1 tablet by mouth IN THE EVENING amlodipine 10 mg tablet 10 mg PO DAILY Qty: 90 1RF atorvastatin 40 mg tablet 40 mg PO PM Qty: 90 3RF potassium chloride 20 mEq tablet extended release 20 meq PO DAILY Qty: 90 1RF clopidogrel 75 mg tablet 75 mg PO QAM Qty: 90 2RF torsemide 20 mg tablet 20 mg PO DAILY Qty: 90 3RF alpha lipoic acid 600 mg capsule 600 mg PO BID Qty: 180 3RF bimatoprost 0.01 % drops 1 drops OP DAILY Qty: 7.5 0RF cyanocobalamin (vitamin B-12) 1,000 mcg tablet 1,000 mcg PO DAILY Qty: 90 3RF sodium chloride 2 % drops 1 drops OP QID Qty: 15 0RF doxazosin 2 mg tablet 2 mg PO HS Qty: 90 3RF levobunolol 0.5 % drops 1 drp ophthalmic (eye) DAILY Simbrinza 1-0.2 % Drops,Suspension 1 drp ophthalmic (eye) TID magnesium oxide 250 mg magnesium Tablet 250 mg PO HS Rhopressa 0.02 % Drops 1 drp OPHTHALMIC (EYE) PM Referrals Referrals: Lisa Martino DO [Primary Care Provider] -
[2023-11-15] MEDS: OPTIRAY 320 125ml IV ONE (05:49)
[2023-11-15 05:57] LABS: Basophils # (auto) 0.05 K/uL (0.00-0.20); Basophils % (auto) 0.8 %; Eosinophils # (auto) 0.15 K/uL (0.00-0.50); Eosinophils % (auto) 2.3 %; Hematocrit (blood only) 39.6 % (42.0-52.0); Hemoglobin 13.3 g/dl (14.0-18.0); Immature Granulocytes # (auto) 0.02 K/uL (0.01-0.20); Immature Granulocytes % (auto) 0.3 %; Lymphocytes # (auto) 1.55 K/uL (1.20-3.40); Lymphocytes % (auto) 23.7 %; Mean Corpuscular Hemoglobin 30.4 pg (25.0-34.0); Mean Corpuscular Hgb Conc 33.6 g/dL (32.0-36.0); Mean Corpuscular Volume 90.4 fL (80.0-100.0); Mean Platelet Volume 10.5 fL (9.4-12.4); Monocytes # (auto) 0.61 K/uL (0.11-0.59); Monocytes % (auto) 9.3 %; Neutrophils # (auto) 4.16 K/uL (1.40-6.50); Neutrophils % (auto) 63.6 %; Platelet Count 208 K/uL (130-400); RDW Coefficient of Variation 15.4 % (11.5-14.5); RDW Standard Deviation 51.4 fL (36.4-46.3); Red Blood Count 4.38 M/uL (4.70-6.10); White Blood Count 6.54 K/ul (4.8-10.8)
[2023-11-15 06:06] LABS: Albumin Globulin Ratio 1.6 (0.9-2); Albumin Level 4.2 gm/dl (3.4-5.0); BUN Creatinine Ratio 24.6 (10-20); Bilirubin,Total 0.8 mg/dl (0.2-1.0); Calcium 9.3 mg/dl (8.6-10.3); Creatinine Clr Calc Pharmacy 45.1 ml/min; Est GFR (Non-African American) 54.4 ml/min; Globulin 2.7 gm/dl (2.5-4.0); Magnesium 2.1 mg/dl (1.7-2.4); Potassium 3.9 mmol/L (3.5-5.1); Total Protein 6.9 gm/dl (6.0-8.3)
--- NOTE | 2023-11-15 06:10 | CT Scan Report ---
Exam(s): CT HEAD Without Contrast EXAM: CT Head Without Intravenous Contrast CLINICAL HISTORY: Reason for exam: neuro deficit, acute stroke suspected. TECHNIQUE: Axial computed tomography images of the head/brain without intravenous contrast. CTDI is 35.65 mGy and DLP is 624.41 mGy-cm. Automated exposure control was utilized for the study. A dose lowering technique was utilized adhering to the principles of ALARA. COMPARISON: No relevant prior studies available. FINDINGS: Brain: Unremarkable. No hemorrhage. No significant white matter disease. No edema. Ventricles: Unremarkable. No ventriculomegaly. Bones/joints: Unremarkable. No acute fracture. Soft tissues: Unremarkable. Sinuses: Mucous retention cysts are seen in bilateral maxillary sinuses. Mastoid air cells: Unremarkable as visualized. No mastoid effusion. IMPRESSION: No acute intracranial abnormality Communications: Call Doctor Stroke Electronically signed by: Jarad Macias MD 11/15/23 06:09 AM
[2023-11-15 06:13] LABS: Troponin I High Sensitivity 9.7 pg/ml (0-20)
--- NOTE | 2023-11-15 06:15 | CT Scan Report ---
Exam(s): CTA NECK With Contrast IV Amt: 119 ml opti 320 EXAM: CT Angiography Neck With Intravenous Contrast CLINICAL HISTORY: Reason for exam: neuro deficit, acute stroke suspected. TECHNIQUE: Routine carotid CT angiography protocol was performed with intravenous contrast. NASCET criteria using the distal ICAs for comparison were used for evaluation of stenoses. CTDI is 29.06 mGy and DLP is 520.66 mGy-cm. Automated exposure control was utilized for the study. A dose lowering technique was utilized adhering to the principles of ALARA. MIP reconstructed images were created and reviewed. CONTRAST: Patient received 119 ml opti 320 of IV contrast COMPARISON: None. FINDINGS: VASCULATURE: Right common carotid artery: Unremarkable. No occlusion or significant stenosis. No dissection. Right internal carotid artery: Moderate atherosclerotic calcification seen in the proximal right cervical internal carotid artery. Right external carotid artery: Unremarkable. No occlusion. Right vertebral artery: Unremarkable. No occlusion or significant stenosis. No dissection. Left common carotid artery: Unremarkable. No occlusion or significant stenosis. No dissection. Left internal carotid artery: Moderate atherosclerotic calcification seen in the proximal left cervical internal carotid artery. Left external carotid artery: Unremarkable. No occlusion. Left vertebral artery: Unremarkable. No occlusion or significant stenosis. No dissection. NECK: Bones/joints: Unremarkable. No acute fracture. Soft tissues: Unremarkable. Thyroid: 4 mm nodular calcifications seen in the right lobe of the thyroid gland. Lung apices: Clear. CAROTID STENOSIS REFERENCE USING NASCET CRITERIA: % ICA stenosis = (1 - narrowest ICA diameter/diameter of distal cervical ICA) x 100. Mild - <50% stenosis. Moderate - 50-69% stenosis. Severe - 70-94% stenosis. Near occlusion - 95-99% stenosis. Occluded - 100% stenosis. IMPRESSION: No evidence of hemodynamically significant carotid stenosis Communications: Call Doctor Stroke Electronically signed by: Jarad Macias MD 11/15/23 06:14 AM
[2023-11-15 07:22] LABS: iSTAT Creatinine 1.2 mg/dl (0.6-1.3); iSTAT Hemoglobin 13.9 g/dl (14.0-18.0); iSTAT Ionized Calcium 1.26 mmol/l (1.12-1.32); iSTAT Potassium 3.9 mmol/L (3.3-5.0)
--- NOTE | 2023-11-15 07:32 | CT Scan Report ---
Exam(s): CTA HEAD IV Amt: 119 ml opti 320 EXAM: CT Angiography Head With Intravenous Contrast CLINICAL HISTORY: Woke up 4 am, completely disoriented. Denies any numbness or tingling. Went to bed at 2200 with no symptoms. Still slightly confused which is abnormal. 119 ml opti 320 PW TECHNIQUE: Axial computed tomographic angiography images of the head with intravenous contrast. CTDI is 13.69 mGy and DLP is 520.66 mGy-cm. Automated exposure control was utilized for the study. A dose lowering technique was utilized adhering to the principles of ALARA. MIP reconstructed images were created and reviewed. COMPARISON: No relevant prior studies available. FINDINGS: Right internal carotid artery: No acute findings. Intracranial segment is patent with no significant stenosis. No aneurysm. Right anterior cerebral artery: Unremarkable. No occlusion or significant stenosis. No aneurysm. Right middle cerebral artery: Unremarkable. No occlusion or significant stenosis. No aneurysm. Right posterior cerebral artery: Unremarkable. No occlusion or significant stenosis. No aneurysm. Right vertebral artery: Unremarkable as visualized. Left internal carotid artery: No acute findings. Intracranial segment is patent with no significant stenosis. No aneurysm. Left anterior cerebral artery: Unremarkable. No occlusion or significant stenosis. No aneurysm. Left middle cerebral artery: Unremarkable. No occlusion or significant stenosis. No aneurysm. Left posterior cerebral artery: Unremarkable. No occlusion or significant stenosis. No aneurysm. Left vertebral artery: Unremarkable as visualized. Basilar artery: Unremarkable. No occlusion or significant stenosis. No aneurysm. IMPRESSION: Normal head CTA. Communications: 11/15/23 06:30 Call Doctor Regarding Stroke, called Dr. Brooks on 11/14 06:21 (-04:00) Electronically signed by: Jarad Macias MD 11/15/23 06:23 AM
[2023-11-15 07:42] LABS: INR 1.1 (0.9-1.1); Partial Thromboplastin Ratio 0.9; Partial Thromboplastin Time 25 Seconds (21-31); Prothrombin Time 12.2 Seconds (9.0-12.0)
[2023-11-15 08:06] LABS: Appearance Urine Clear (Clear); Bilirubin Urine Negative (Negative); Blood Urine Negative (Negative); Color Urine Yellow; Glucose Urine UA Negative (Negative); Ketones Urine Negative (Negative); Leukocyte Esterase Urine Negative (Negative); Nitrite Urine Negative (Negative); Protein Urine Negative (Negative); Specific Gravity Urine > 1.045 (1.000-1.030); Urobilinogen Urine Negative (Negative)
[2023-11-15] MEDS: MECLIZINE 12.5 MG TAB PO SCH (09:49)
[2023-11-15] MEDS ORDERED: PHARMACIST DISCHARGE MED REC CONSULT PRN (11:28)
[2023-11-15] MEDS ORDERED: SODIUM CHLORIDE 2% OP SCH (11:28)
--- NOTE | 2023-11-15 11:47 | XRay Report ---
XR chest 1V portable CLINICAL HISTORY: cough TECHNIQUE: Single frontal radiograph of the chest was obtained. Comparison: Comparison is made to chest radiograph 11/07/2022 FINDINGS: Median sternotomy wires are unchanged. Calcified aortic knob is seen. The lungs are clear. No evidenc e of pleural effusion or pneumothorax. IMPRESSION: No acute abnormalities and in particular no radiographic evidence of pneumonia. ACT 112: Negative or not required by law. Electronically signed by: Beka Dorman M.D. 11/15/2023 11:45 AM
--- NOTE | 2023-11-15 11:56 | Hospitalist Progress Note ---
Date of Service November 15, 2023 Assessment & Plan (1) Acute confusion: Plan: acute confusion with gait disturbance. Patient awoke morning of 11/[address] and unsteady gait. No symptoms when going to bed the night before. Out of the window for TPA upon arrival to ED. patient takes Plavix daily, reports compliance with this. Head CT, no acute findings Head/neck CTA without significant stenosis Brain MRI ordered, pending Hemoglobin A1c 6.0, previously 5.9. Continue diet control lipid panel with total cholesterol 112, LDL 41. Well-managed, continue lipitor UA negative Chest x-ray without acute process Vitamin B12 WNL at this time suspect TIA versus orthostatic hypotension versus more likely vertigo - scheduled meclizine - await brain MRI results - check orthostatic vital signs - PT/OT - check TSH, vitamin B1 - pending (2) Glaucoma, pigmentary: Plan: with recently increased intraocular pressure of 58 on 11/14/2023 - this was detected on routine screening, patient asymptomatic continue home eyedrops - patient may have to bring in from home with nonformulary (3) Hypertensive kidney disease with CKD stage III: Plan: continue lisinopril, amlodipine also on doxazosin for BPH torsemide on hold, with concerns for recent poor oral intake will monitor kidneys/volume status on when to resume (4) ASCVD (arteriosclerotic cardiovascular disease): Plan: continue Plavix and Lipitor Plan chronic stable medical problems: Goutcontinue allopurinol BPH- continue doxazosin dispo: Admit to med telemetry, observation status DVT proph: will defer chemical prophylaxis until brain MRI results, SCDs ordered CODE STATUS: DNR/DNI - patient confirms this Admission and Anticipated Discharge Date Admission Date: November 15, 2023 Judd Styles is a 88-year-old male with a past medical history of CAD, CKD 3, prostate cancer, hypertension history of stroke and glaucoma who presents to the ER after waking up and feeling disoriented and unsteady. Patient went to bed about 10:00 last night and then woke up around 4:00 this morning not knowing where he was, stating that he felt like he was drunk when he was walking around and that he could just fall over. No alcohol use. He did not fall. Son is at bedside and provides some collaborating information, stating that his dad is very active and does not need assistive devices. Of note the patient's has been recently placed in a fdc about 1-1/2 hours away and Jensen has been driving back and forth on multiple occasions and states his overall nutritional status in the last 3 weeks has not been that great of note patient was seen by a corneal specialist yesterday for his glaucoma as a routine checkup and is pressure was elevated to 58. Is a long history of glaucoma and normally does not get above 20. He states that he was asymptomatic during this was given more eyedrops and was told to follow-up Friday with his regular eye doctor. on my exam this morning, patient describes feeling off but is unable to further characterize. However he thinks if he were to get out of bed he would be off balance. Does have increased dizziness when going from supine to sitting for me to auscultate his lungs. No recent fevers chills nausea vomiting or diarrhea. No current upper respiratory infection symptoms, he does state that he has had a cough for about the last 5 months that he did have previously. no chest pain or shortness of breath Review of Systems Review of Systems: All systems reviewed & are unremarkable except as noted in Subjective Physical Exam Physical Exam: General: NAD, lying in bed VS as above HEENT: no focal neurodeficits - No facial droop, sensation intact., no nystagmus. MMM Resp: normal respiratory effort, lungs clear to auscultation. dry cough x1 CV: RRR, no murmur, Abd: normal bowel sounds, non tender, no hepatosplenomegaly Extremities: Moves all extremities, no edema Neuro: A&O x3, Normal wgqw-oh-gdub testing. Skin: intact, no lesions noted Results & Data Results & Data Vital Signs (Past 12 Hours) Vital Signs Temp Pulse Pulse Resp BP BP Pulse Ox 11/15/23 11:33 36.7 C 54 L 18 157/59 H 98 11/15/23 11:03 11/15/23 09:28 47 L 11/15/23 09:00 52 L 18 172/74 H 11/15/23 07:00 46 L 18 171/83 H 99 11/15/23 06:30 44 L 12 165/75 H 97 11/15/23 06:00 46 L 18 164/68 H 100 11/15/23 05:54 48 L 13 164/67 H 99 11/15/23 05:30 46 L 14 182/71 H 100 11/15/23 05:26 47 L 11/15/23 05:15 36.8 C 52 L 18 168/62 H 99 O2 Del Method 11/15/23 11:33 Room Air 11/15/23 11:03 Room Air 11/15/23 09:28 11/15/23 09:00 11/15/23 07:00 Room Air 11/15/23 06:30 Room Air 11/15/23 06:00 Room Air 11/15/23 05:54 Room Air 11/15/23 05:30 Room Air 11/15/23 05:26 11/15/23 05:15 Room Air Laboratory Results CBC, chemistry, lipid panel, A1c reviewed Diagnostic Findings head CT, head CTA, neck CTA reviewed PG Care Time/CCT Total # of Minutes Spent Total Time Spent with Patient: Total time spent is greater than 50% in coordination of care (as documented) at patient's floor/unit and/or counseling patient: Coding Level of Care Code 74411 SUB INP/OBS CARE 3/50MIN Diagnoses Acute confusion R41.0 Glaucoma, pigmentary H40.1390 Hypertensive kidney disease with CKD stage III I12.9; N18.3 ASCVD (arteriosclerotic cardiovascular disease) I25.10
[2023-11-15] MEDS: LEVOBUNOLOL HCL 0.5% OP SOLN 5 ML BTL OP SCH (13:06)
[2023-11-15] MEDS: allopurinoL 100 MG TAB PO SCH (13:06)
[2023-11-15] MEDS: CLOPIDOGREL BISULFATE 75 MG TAB PO SCH (13:06)
[2023-11-15] MEDS: amLODIPine BESYLATE 5 MG TAB PO SCH (13:06)
[2023-11-15] MEDS: lisinopril 20 MG TAB PO SCH (13:06)
[2023-11-15] MEDS: BIMATOPROST 0.01% OP SOLN 2.5 ML BTL OP SCH (13:07)
--- NOTE | 2023-11-15 13:30 | Magnetic Resonance Report ---
MR brain wo con CLINICAL HISTORY: ?stroke TECHNIQUE: Multiplanar and multisequence MR images of the brain were obtained without intravenous con trast. Comparison: Comparison is made to MRI brain 11/07/2022 FINDINGS: No abnormal restricted diffusion is identified. Foci of T2 and FLAIR hyperintensity are noted in the paraventricular areas consistent with chronic small vessel ischemic disease. Ex vacuo ventriculomegal y and sulcal enlargement is noted compatible with diffuse volume loss. No mass is seen. There is no m ass effect or midline shift. There is no evidence of acute intraparenchymal hemorrhage. No extra axia l fluid collections are seen. The corpus callosum, pituitary gland, and cerebellar tonsils appear emile ssly unremarkable. Flow voids of the major intracranial arterial vessels are identified. The imaged portions of the para nasal sinuses, mastoid air cells, and orbits are unremarkable. IMPRESSION: Chronic volume loss and age related white matter changes without evidence of acute abnormality. ACT 112: Negative or not required by law. Electronically signed by: Beka Dorman M.D. 11/15/2023 1:28 PM
--- NOTE | 2023-11-15 16:58 | Electrocardiogram Report ---
Test Reason : Blood Pressure : / mmHG Vent. Rate : 045 BPM Atrial Rate : 045 BPM P-R Int : 156 ms QRS Dur : 158 ms QT Int : 500 ms P-R-T Axes : 085 058 106 degrees QTc Int : 432 ms Sinus bradycardia with sinus arrhythmia Left bundle branch block Abnormal ECG When compared with ECG of 08-NOV-2022 04:37, Vent. rate has decreased BY 35 BPM T wave inversion no longer evident in Inferior leads T wave inversion less evident in Lateral leads QT has shortened Confirmed by Adrien Bay ([id number]) on 11/15/2023 4:57:41 PM Referred By: Bandar Kang Confirmed By:Fabian Bay
[2023-11-15] MEDS: LEVOBUNOLOL 0.5% OP SCH (20:26)
[2023-11-15] MEDS: NETARSUDIL MESYLATE 37 DROPS/2.5 ML BTL OP SCH (20:26)
[2023-11-15] MEDS: BRIMONIDINE TART OP SCH (20:26)
[2023-11-15] MEDS: BRINZOLAMIDE OP SCH (20:26)
[2023-11-15] MEDS: DOXAZosin MESYLATE TAB 2 MG TAB PO SCH (20:27)
[2023-11-15] MEDS: ATORVASTATIN 40 MG TAB PO SCH (20:27)
[2023-11-16 06:49] LABS: Basophils # (auto) 0.06 K/uL (0.00-0.20); Basophils % (auto) 0.9 %; Eosinophils # (auto) 0.17 K/uL (0.00-0.50); Eosinophils % (auto) 2.5 %; Hematocrit (blood only) 34.6 % (42.0-52.0); Hemoglobin 11.9 g/dl (14.0-18.0); Immature Granulocytes # (auto) 0.02 K/uL (0.01-0.20); Immature Granulocytes % (auto) 0.3 %; Lymphocytes # (auto) 1.73 K/uL (1.20-3.40); Lymphocytes % (auto) 25.9 %; Mean Corpuscular Hgb Conc 34.4 g/dL (32.0-36.0); Mean Corpuscular Volume 90.1 fL (80.0-100.0); Mean Platelet Volume 11.1 fL (9.4-12.4); Monocytes # (auto) 0.71 K/uL (0.11-0.59); Monocytes % (auto) 10.6 %; Neutrophils # (auto) 3.99 K/uL (1.40-6.50); Neutrophils % (auto) 59.8 %; Platelet Count 179 K/uL (130-400); RDW Coefficient of Variation 15.3 % (11.5-14.5); RDW Standard Deviation 50.8 fL (36.4-46.3); Red Blood Count 3.84 M/uL (4.70-6.10); White Blood Count 6.68 K/ul (4.8-10.8)
[2023-11-16 07:07] LABS: BUN Creatinine Ratio 25.2 (10-20); Calcium 8.7 mg/dl (8.6-10.3); Creatinine Clr Calc Pharmacy 46.2 ml/min; Est GFR (African American) 62.4 ml/min; Est GFR (Non-African American) 53.8 ml/min; Potassium 4.3 mmol/L (3.5-5.1)
--- NOTE | 2023-11-16 07:45 | Hospitalist Progress Note ---
Date of Service November 16, 2023 Assessment & Plan (1) Acute confusion: Plan: acute confusion with gait disturbance. Patient awoke morning of 11/[address] and unsteady gait. No symptoms when going to bed the night before. Out of the window for TPA upon arrival to ED. patient takes Plavix daily, reports compliance with this. Head CT, no acute findings Head/neck CTA without significant stenosis Brain MRI ordered, pending Hemoglobin A1c 6.0, previously 5.9. Continue diet control lipid panel with total cholesterol 112, LDL 41. Well-managed, continue lipitor UA negative Chest x-ray without acute process Vitamin B12 WNL at this time suspect TIA versus orthostatic hypotension versus more likely vertigo - scheduled meclizine - await brain MRI results - check orthostatic vital signs - PT/OT - check TSH, vitamin B1 - pending (2) Glaucoma, pigmentary: Plan: with recently increased intraocular pressure of 58 on 11/14/2023 - this was detected on routine screening, patient asymptomatic continue home eyedrops - patient may have to bring in from home with nonformulary (3) Hypertensive kidney disease with CKD stage III: Plan: continue lisinopril, amlodipine also on doxazosin for BPH torsemide on hold, with concerns for recent poor oral intake will monitor kidneys/volume status on when to resume (4) ASCVD (arteriosclerotic cardiovascular disease): Plan: continue Plavix and Lipitor Plan chronic stable medical problems: Goutcontinue allopurinol BPH- continue doxazosin dispo: Admit to med telemetry, observation status DVT proph: will defer chemical prophylaxis until brain MRI results, SCDs ordered CODE STATUS: DNR/DNI - patient confirms this Admission and Anticipated Discharge Date Admission Date: November 15, 2023 Judd Styles is a 88-year-old male with a past medical history of CAD, CKD 3, prostate cancer, hypertension history of stroke and glaucoma who presents to the ER after waking up and feeling disoriented and unsteady. Patient went to bed about 10:00 last night and then woke up around 4:00 this morning not knowing where he was, stating that he felt like he was drunk when he was walking around and that he could just fall over. No alcohol use. He did not fall. Son is at bedside and provides some collaborating information, stating that his dad is very active and does not need assistive devices. Of note the patient's has been recently placed in a [facility] about 1-1/2 hours away and Jensen has been driving back and forth on multiple occasions and states his overall nutritional status in the last 3 weeks has not been that great of note patient was seen by a corneal specialist yesterday for his glaucoma as a routine checkup and is pressure was elevated to 58. Is a long history of glaucoma and normally does not get above 20. He states that he was asymptomatic during this was given more eyedrops and was told to follow-up Friday with his regular eye doctor. on my exam this morning, patient describes feeling off but is unable to further characterize. However he thinks if he were to get out of bed he would be off balance. Does have increased dizziness when going from supine to sitting for me to auscultate his lungs. No recent fevers chills nausea vomiting or diarrhea. No current upper respiratory infection symptoms, he does state that he has had a cough for about the last 5 months that he did have previously. no chest pain or shortness of breath Physical Exam Physical Exam: General: NAD, lying in bed VS as above HEENT: no focal neurodeficits - No facial droop, sensation intact., no nystagmus. MMM Resp: normal respiratory effort, lungs clear to auscultation. dry cough x1 CV: RRR, no murmur, Abd: normal bowel sounds, non tender, no hepatosplenomegaly Extremities: Moves all extremities, no edema Neuro: A&O x3, Normal awmv-uc-gtzf testing. Skin: intact, no lesions noted Results & Data Results & Data Vital Signs (Past 12 Hours) Vital Signs Temp Pulse Pulse Resp BP Pulse Ox O2 Del Method 11/16/23 07:37 Room Air 11/16/23 07:14 54 L 11/16/23 04:15 36.5 C 51 L 20 140/64 96 Room Air 11/15/23 23:46 36.9 C 52 L 18 127/58 L 95 Room Air 11/15/23 23:14 39 L PG Care Time/CCT Total # of Minutes Spent Total Time Spent with Patient: Total time spent is greater than 50% in coordination of care (as documented) at patient's floor/unit and/or counseling patient: Coding Diagnoses Acute confusion R41.0 Glaucoma, pigmentary H40.1390 Hypertensive kidney disease with CKD stage III I12.9; N18.3 ASCVD (arteriosclerotic cardiovascular disease) I25.10
--- NOTE | 2023-11-16 07:48 | History & Physical Report ---
Date of Service November 15, 2023 Assessment & Plan (1) Acute confusion: Plan: acute confusion with gait disturbance. Patient awoke morning of 11/[address] and unsteady gait. No symptoms when going to bed the night before. Out of the window for TPA upon arrival to ED. patient takes Plavix daily, reports compliance with this. Head CT, no acute findings Head/neck CTA without significant stenosis Brain MRI ordered, pending Hemoglobin A1c 6.0, previously 5.9. Continue diet control lipid panel with total cholesterol 112, LDL 41. Well-managed, continue lipitor UA negative Chest x-ray without acute process Vitamin B12 WNL at this time suspect TIA versus orthostatic hypotension versus more likely vertigo - scheduled meclizine - await brain MRI results - check orthostatic vital signs - PT/OT - check TSH, vitamin B1 - pending (2) Glaucoma, pigmentary: Plan: with recently increased intraocular pressure of 58 on 11/14/2023 - this was detected on routine screening, patient asymptomatic continue home eyedrops - patient may have to bring in from home with nonformulary (3) Hypertensive kidney disease with CKD stage III: Plan: continue lisinopril, amlodipine also on doxazosin for BPH torsemide on hold, with concerns for recent poor oral intake will monitor kidneys/volume status on when to resume (4) ASCVD (arteriosclerotic cardiovascular disease): Plan: continue Plavix and Lipitor Plan chronic stable medical problems: Goutcontinue allopurinol BPH- continue doxazosin dispo: Admit to med telemetry, observation status DVT proph: will defer chemical prophylaxis until brain MRI results, SCDs ordered CODE STATUS: DNR/DNI - patient confirms this Admission and Anticipated Discharge Date Admission Date: November 15, 2023 History of Present Illness Primary Care Provider: DO Jensen Marrero is a 88-year-old male with a past medical history of CAD, CKD 3, prostate cancer, hypertension history of stroke and glaucoma who presents to the ER after waking up and feeling disoriented and unsteady. Patient went to bed about 10:00 last night and then woke up around 4:00 this morning not knowing where he was, stating that he felt like he was drunk when he was walking around and that he could just fall over. No alcohol use. He did not fall. Son is at bedside and provides some collaborating information, stating that his dad is very active and does not need assistive devices. Of note the patient's has been recently placed in a fdc about 1-1/2 hours away and Jensen has been driving back and forth on multiple occasions and states his overall nutritional status in the last 3 weeks has not been that great of note patient was seen by a corneal specialist yesterday for his glaucoma as a routine checkup and is pressure was elevated to 58. Is a long history of glaucoma and normally does not get above 20. He states that he was asymptomatic during this was given more eyedrops and was told to follow-up Friday with his regular eye doctor. on my exam this morning, patient describes feeling off but is unable to further characterize. However he thinks if he were to get out of bed he would be off balance. Does have increased dizziness when going from supine to sitting for me to auscultate his lungs. No recent fevers chills nausea vomiting or diarrhea. No current upper respiratory infection symptoms, he does state that he has had a cough for about the last 5 months that he did have previously. no chest pain or shortness of breath Allergies Allergy/AdvReac Type Severity Reaction Status Date / Time No Known Drug Allergies Allergy Verified 09/04/23 13:37 Home Medications Medication Instructions Recorded Confirmed Type alpha lipoic acid 600 mg capsule 600 mg PO BID #180 caps 01/02/19 11/15/23 Rx bimatoprost 0.01 % eye drops 1 drops ophthalmic (eye) DAILY 01/02/19 11/15/23 Rx #7.5 mL cyanocobalamin (vitamin B-12) 1,000 mcg PO DAILY #90 tabs 01/02/19 11/15/23 Rx 1,000 mcg tablet sodium chloride 2 % eye drops 1 drops ophthalmic (eye) QID #15 mL 01/02/19 11/15/23 Rx levobunolol 0.5 % eye drops 1 drp ophthalmic (eye) DAILY 06/05/22 11/15/23 History brinzolamide 1 %-brimonidine 0.2 % 1 drp ophthalmic (eye) TID 11/07/22 11/15/23 History eye drops,suspension (Simbrinza) magnesium oxide 250 mg PO HS 11/07/22 11/15/23 History netarsudil 0.02 % eye drops 1 drp ophthalmic (eye) PM 11/09/22 11/15/23 History (Rhopressa) allopurinol 100 mg tablet 100 mg PO DAILY #90 tabs 01/23/23 11/15/23 Rx doxazosin 2 mg tablet 2 mg PO HS #90 tabs 02/25/23 11/15/23 Rx lisinopril 20 mg tablet See Rx Instructions .Route 04/14/23 11/15/23 Rx .COMPLEX #90 tabs amlodipine 10 mg tablet 10 mg PO DAILY #90 tabs 06/13/23 11/15/23 Rx atorvastatin 40 mg tablet 40 mg PO PM #90 tabs 07/03/23 11/15/23 Rx potassium chloride 20 mEq 20 meq PO DAILY #90 tabs 09/03/23 11/15/23 Rx tablet,extended release clopidogrel 75 mg tablet 75 mg PO QAM #90 tabs 09/25/23 11/15/23 Rx torsemide 20 mg tablet 20 mg PO DAILY #90 tabs 10/09/23 11/15/23 Rx doxycycline hyclate 100 mg tablet 100 mg PO UD 11/15/23 11/15/23 History Past Med/Surg History Medical History Right knee DJD Vitamin B12 deficiency Stage 3 chronic kidney disease Idiopathic small fiber peripheral neuropathy Hypertensive kidney disease with CKD stage III Gout Glucose intolerance (impaired glucose tolerance) Glaucoma, pigmentary Erectile dysfunction ASCVD (arteriosclerotic cardiovascular disease) Surgical History H/O wrist surgery titanium screw placement in 1989- scaphoid bone H/O shoulder surgery 2003- left titanium upper shoulder- partial replacement ball and socket H/O prostatectomy retropubic radical with nerve sparing [place]- Dr. Rodríguez 2006 H/O eye surgery 1969 and 1979 detached retina and trabeculectomy Hx of CABG double bypass surgery- 1989 Status post double vessel coronary artery bypass Family History Father FHx: kidney cancer Mother Ischemic stroke Hyperlipidemia associated with type 2 diabetes mellitus Glaucoma Hypertension Sister Chronic bronchitis Glaucoma Grandfather Ischemic stroke Grandmother Heart disease Grandfather History of appendectomy Grandmother Heart disease Son Glaucoma Unknown Colon carcinoma Social History Smoking Status: Never smoker Second Hand Exposure: No; Do You Dip or Chew Tobacco: No; Hx Alcohol Use: Yes Alcohol type: beer, wine and hard liquor Hx Substance Use: No Preferred Language: Argentine Communication Ability: Effective Mortgage Collector Required: No Beliefs That Will Affect Care: None Current Living Situation: Alone Current Living Situation Comment: in fdc near [place] current occupational status: retired Other Information That Helps Us Care for You: No Feels Safe at Home: Yes Safety Concerns: Feels Safe At This Time caffeine: Yes Seatbelt Use: always Assistive Devices: Glasses Review of Systems Review of Systems: All systems reviewed & are unremarkable except as noted in Subjective Physical Exam Physical Exam: General: NAD, l jaleesa in bed VS as above HEENT: no focal neurodeficit s - No facial dr oop, sensation int act., no nystagmus . MMM Resp: normal respiratory effor t, lungs clear to auscultation. dry cough x1 CV: RRR, no murmur, Abd: normal bowel sound s, non tender, no hepatosplenomegaly Extremities: Mov es all extremities , no edema Neuro: A&O x3, Normal uxdh-ng-ncar testi ng. Skin: intact, no lesions noted Results & Data Results & Data Vital Signs (Past 12 Hours) Vital Signs Temp Pulse Pulse Resp BP Pulse Ox O2 Del Method 11/16/23 07:37 Room Air 11/16/23 07:14 54 L 11/16/23 04:15 36.5 C 51 L 20 140/64 96 Room Air 11/15/23 23:46 36.9 C 52 L 18 127/58 L 95 Room Air 11/15/23 23:14 39 L Laboratory Results cbc, chemistry, vitamin b12 reviewed Diagnostic Findings head CT, head and neck CTA reviewed PG Care Time/CCT Total # of Minutes Spent Total Time Spent with Patient: Total time spent is greater than 50% in coordination of care (as documented) at patient's floor/unit and/or counseling patient: Coding Level of Care Code 59123 INT INP/OBS CARE 3/75MIN Diagnoses Acute confusion R41.0 Glaucoma, pigmentary H40.1390 Hypertensive kidney disease with CKD stage III I12.9; N18.3 ASCVD (arteriosclerotic cardiovascular disease) I25.10
[2023-11-16] MEDS ORDERED: STROKE PATIENT DISCHARGE STA (12:46)
--- NOTE | 2023-11-16 13:06 | Discharge Summary ---
Discharge Summary Date of Service November 16, 2023 Notes For Next Care Provider Admitted after awaking with confusion and difficulty walking. Brain MRI negative, symptoms improved with meclezine. Sent out with PRN meclziine. Elevated intraoocular pressures day prior to arrival at retinal specialist - continue follow up with eye Dr. Medication Changes From Visit Meclizine Admission HPI Per Admitting Provider Jensen is a 88-year-old male with a past medical history of CAD, CKD 3, prostate cancer, hypertension history of stroke and glaucoma who presents to the ER after waking up and feeling disoriented and unsteady. Patient went to bed about 10:00 last night and then woke up around 4:00 this morning not knowing where he was, stating that he felt like he was drunk when he was walking around and that he could just fall over. No alcohol use. He did not fall. Son is at bedside and provides some collaborating information, stating that his dad is very active and does not need assistive devices. Of note the patient's has been recently placed in a halfway about 1-1/2 hours away and Jensen has been driving back and forth on multiple occasions and states his overall nutritional status in the last 3 weeks has not been that great of note patient was seen by a corneal specialist yesterday for his glaucoma as a routine checkup and is pressure was elevated to 58. Is a long history of glaucoma and normally does not get above 20. He states that he was asymptomatic during this was given more eyedrops and was told to follow-up Friday with his regular eye doctor. on my exam this morning, patient describes feeling off but is unable to further characterize. However he thinks if he were to get out of bed he would be off balance. Does have increased dizziness when going from supine to sitting for me to auscultate his lungs. No recent fevers chills nausea vomiting or diarrhea. No current upper respiratory infection symptoms, he does state that he has had a cough for about the last 5 months that he did have previously. no chest pain or shortness of breath Principal Dx & Hospital Course #1 = Principal Diagnosis (1) Acute confusion: acute confusion with gait disturbance. Patient awoke morning of 11/[address] and unsteady gait. No symptoms when going to bed the night before. Out of the window for TPA upon arrival to ED. patient takes Plavix daily, reports compliance with this. Head CT, no acute findings Head/neck CTA without significant stenosis Brain MRI: chronic volume loss, no acute stroke Hemoglobin A1c 6.0, previously 5.9. Continue diet control lipid panel with total cholesterol 112, LDL 41. Well-managed, continue lipitor UA negative Chest x-ray without acute process Vitamin B12 WNL, TSH WNL. Vitamin B1 level pending - scheduled meclizine - with great improvement - orthostatic vital signs - WNL - PT/OT - recommend return home Patient symptoms caused by vertigo and not stroke/TIA. Symptoms resolved at time of discharge, discharged with prn Meclizine. (2) Glaucoma, pigmentary: with recently increased intraocular pressure of 58 on 11/14/2023 - this was detected on routine screening, patient asymptomatic continue home eyedrops - follow up with Eye DrNitish as scheduled (3) Hypertensive kidney disease with CKD stage III: continue lisinopril, amlodipine also on doxazosin for BPH can resume torsemide at discharge (4) ASCVD (arteriosclerotic cardiovascular disease): continue Plavix and Lipitor Plan chronic stable medical problems: Goutcontinue allopurinol BPH- continue doxazosin dispo: discharge to home today, family updated by phone. Discharge Exam General: NAD, ambulating in room VS as above Resp: normal respiratory effort, lungs clear to auscultation. dry cough x1 CV: RRR, no murmur, Abd: normal bowel sounds, non tender, no hepatosplenomegaly Extremities: Moves all extremities, no edema Neuro: A&O x3, no gross neuro deficits Skin: intact, no lesions noted Updated Medication List Medication Instructions Recorded Confirmed Type alpha lipoic acid 600 mg capsule 600 mg PO BID #180 caps 01/02/19 11/15/23 Rx bimatoprost 0.01 % eye drops 1 drops ophthalmic (eye) DAILY 01/02/19 11/15/23 Rx #7.5 mL cyanocobalamin (vitamin B-12) 1,000 mcg PO DAILY #90 tabs 01/02/19 11/15/23 Rx 1,000 mcg tablet sodium chloride 2 % eye drops 1 drops ophthalmic (eye) QID #15 mL 01/02/19 11/15/23 Rx levobunolol 0.5 % eye drops 1 drp ophthalmic (eye) DAILY 06/05/22 11/15/23 History brinzolamide 1 %-brimonidine 0.2 % 1 drp ophthalmic (eye) TID 11/07/22 11/15/23 History eye drops,suspension (Simbrinza) magnesium oxide 250 mg PO HS 11/07/22 11/15/23 History netarsudil 0.02 % eye drops 1 drp ophthalmic (eye) PM 11/09/22 11/15/23 History (Rhopressa) allopurinol 100 mg tablet 100 mg PO DAILY #90 tabs 01/23/23 11/15/23 Rx doxazosin 2 mg tablet 2 mg PO HS #90 tabs 02/25/23 11/15/23 Rx lisinopril 20 mg tablet See Rx Instructions .Route 04/14/23 11/15/23 Rx .COMPLEX #90 tabs amlodipine 10 mg tablet 10 mg PO DAILY #90 tabs 06/13/23 11/15/23 Rx atorvastatin 40 mg tablet 40 mg PO PM #90 tabs 07/03/23 11/15/23 Rx potassium chloride 20 mEq 20 meq PO DAILY #90 tabs 09/03/23 11/15/23 Rx tablet,extended release clopidogrel 75 mg tablet 75 mg PO QAM #90 tabs 09/25/23 11/15/23 Rx torsemide 20 mg tablet 20 mg PO DAILY #90 tabs 10/09/23 11/15/23 Rx doxycycline hyclate 100 mg tablet 100 mg PO UD 11/15/23 11/15/23 History meclizine 12.5 mg tablet 12.5 mg PO TID PRN vertigo #30 tabs 11/16/23 Rx Hospital Stay Data Consultations 11/15/23 07:27 ED Decision to Admit Stat Diagnostic Imagining Performed Head CT 11/15/23 05:32 CR Exam(s): CT HEAD Without Contrast EXAM: CT Head Without Intravenous Contrast CLINICAL HISTORY: Reason for exam: neuro deficit, acute stroke suspected. TECHNIQUE: Axial computed tomography images of the head/brain without intravenous contrast. CTDI is 35.65 mGy and DLP is 624.41 mGy-cm. Automated exposure control was utilized for the study. A dose lowering technique was utilized adhering to the principles of ALARA. COMPARISON: No relevant prior studies available. FINDINGS: Brain: Unremarkable. No hemorrhage. No significant white matter disease. No edema. Ventricles: Unremarkable. No ventriculomegaly. Bones/joints: Unremarkable. No acute fracture. Soft tissues: Unremarkable. Sinuses: Mucous retention cysts are seen in bilateral maxillary sinuses. Mastoid air cells: Unremarkable as visualized. No mastoid effusion. IMPRESSION: No acute intracranial abnormality Communications: Call Doctor Stroke Electronically signed by: Jarad Macias MD 11/15/23 06:09 AM Head CTA 11/15/23 05:32 CR Exam(s): CTA HEAD IV Amt: 119 ml opti 320 EXAM: CT Angiography Head With Intravenous Contrast CLINICAL HISTORY: Woke up 4 am, completely disoriented. Denies any numbness or tingling. Went to bed at 2200 with no symptoms. Still slightly confused which is abnormal. 119 ml opti 320 PW TECHNIQUE: Axial computed tomographic angiography images of the head with intravenous contrast. CTDI is 13.69 mGy and DLP is 520.66 mGy-cm. Automated exposure control was utilized for the study. A dose lowering technique was utilized adhering to the principles of ALARA. MIP reconstructed images were created and reviewed. COMPARISON: No relevant prior studies available. FINDINGS: Right internal carotid artery: No acute findings. Intracranial segment is patent with no significant stenosis. No aneurysm. Right anterior cerebral artery: Unremarkable. No occlusion or significant stenosis. No aneurysm. Right middle cerebral artery: Unremarkable. No occlusion or significant stenosis. No aneurysm. Right posterior cerebral artery: Unremarkable. No occlusion or significant stenosis. No aneurysm. Right vertebral artery: Unremarkable as visualized. Left internal carotid artery: No acute findings. Intracranial segment is patent with no significant stenosis. No aneurysm. Left anterior cerebral artery: Unremarkable. No occlusion or significant stenosis. No aneurysm. Left middle cerebral artery: Unremarkable. No occlusion or significant stenosis. No aneurysm. Left posterior cerebral artery: Unremarkable. No occlusion or significant stenosis. No aneurysm. Left vertebral artery: Unremarkable as visualized. Basilar artery: Unremarkable. No occlusion or significant stenosis. No aneurysm. IMPRESSION: Normal head CTA. Communications: 11/15/23 06:30 Call Doctor Regarding Stroke, called Dr. Brooks on 11/14 06:21 (-04:00) Electronically signed by: Jarad Macias MD 11/15/23 06:23 AM Neck CTA 11/15/23 05:32 CR Exam(s): CTA NECK With Contrast IV Amt: 119 ml opti 320 EXAM: CT Angiography Neck With Intravenous Contrast CLINICAL HISTORY: Reason for exam: neuro deficit, acute stroke suspected. TECHNIQUE: Routine carotid CT angiography protocol was performed with intravenous contrast. NASCET criteria using the distal ICAs for comparison were used for evaluation of stenoses. CTDI is 29.06 mGy and DLP is 520.66 mGy-cm. Automated exposure control was utilized for the study. A dose lowering technique was utilized adhering to the principles of ALARA. MIP reconstructed images were created and reviewed. CONTRAST: Patient received 119 ml opti 320 of IV contrast COMPARISON: None. FINDINGS: VASCULATURE: Right common carotid artery: Unremarkable. No occlusion or significant stenosis. No dissection. Right internal carotid artery: Moderate atherosclerotic calcification seen in the proximal right cervical internal carotid artery. Right external carotid artery: Unremarkable. No occlusion. Right vertebral artery: Unremarkable. No occlusion or significant stenosis. No dissection. Left common carotid artery: Unremarkable. No occlusion or significant stenosis. No dissection. Left internal carotid artery: Moderate atherosclerotic calcification seen in the proximal left cervical internal carotid artery. Left external carotid artery: Unremarkable. No occlusion. Left vertebral artery: Unremarkable. No occlusion or significant stenosis. No dissection. NECK: Bones/joints: Unremarkable. No acute fracture. Soft tissues: Unremarkable. Thyroid: 4 mm nodular calcifications seen in the right lobe of the thyroid gland. Lung apices: Clear. CAROTID STENOSIS REFERENCE USING NASCET CRITERIA: % ICA stenosis = (1 - narrowest ICA diameter/diameter of distal cervical ICA) x 100. Mild - <50% stenosis. Moderate - 50-69% stenosis. Severe - 70-94% stenosis. Near occlusion - 95-99% stenosis. Occluded - 100% stenosis. IMPRESSION: No evidence of hemodynamically significant carotid stenosis Communications: Call Doctor Stroke Electronically signed by: Jarad Macias MD 11/15/23 06:14 AM Brain MRI 11/15/23 11:28 MR brain wo con CLINICAL HISTORY: ?stroke TECHNIQUE: Multiplanar and multisequence MR images of the brain were obtained without intravenous contrast. Comparison: Comparison is made to MRI brain 11/07/2022 FINDINGS: No abnormal restricted diffusion is identified. Foci of T2 and FLAIR hyperintensity are noted in the paraventricular areas consistent with chronic small vessel ischemic disease. Ex vacuo ventriculomegaly and sulcal enlargement is noted compatible with diffuse volume loss. No mass is seen. There is no mass effect or midline shift. There is no evidence of acute intraparenchymal hemorrhage. No extra axial fluid collections are seen. The corpus callosum, pituitary gland, and cerebellar tonsils appear grossly unremarkable. Flow voids of the major intracranial arterial vessels are identified. The imaged portions of the paranasal sinuses, mastoid air cells, and orbits are unremarkable. IMPRESSION: Chronic volume loss and age related white matter changes without evidence of acute abnormality. ACT 112: Negative or not required by law. Electronically signed by: Beka Dorman M.D. 11/15/2023 1:28 PM Chest X-Ray 11/15/23 11:28 XR chest 1V portable CLINICAL HISTORY: cough TECHNIQUE: Single frontal radiograph of the chest was obtained. Comparison: Comparison is made to chest radiograph 11/07/2022 FINDINGS: Median sternotomy wires are unchanged. Calcified aortic knob is seen. The lungs are clear. No evidence of pleural effusion or pneumothorax. IMPRESSION: No acute abnormalities and in particular no radiographic evidence of pneumonia. ACT 112: Negative or not required by law. Electronically signed by: Beka Dorman M.D. 11/15/2023 11:45 AM Pending Results Patient Have Any Pending Studies at Discharge: No (vitamin B1 ) Discharge Instructions Given to Patient (Per Discharging Provider) Mr. Moncada, Jorge were hospitalized after waking up and feeling disoriented with difficulty walking. Thankfully, your head CT and brain MRI did not show any strokes. I suspect that your symtoms were caused by Vertigo that we treated with a medication called meclizine - that helped resolve your symptoms. I am sending in a prescription for this medication that you can take NEEDED if your symptoms return. Please go to your eye doctor appointment on Friday. You hgba1c (the average of your blood sugars over 90 days) was stable at 6.0. Continue to eat a well balanced diet avoiding sugars. The [employer] in [facility] pharmacy is closed, and then have transferred all of the presciptions to the [facility] on [facility] so that is where I have sent the meclizine. ----- Take your medications as instructed; do not skip a dose of your medicines. Make sure all of your doctors know every medicine you are taking (including [id number] medicines, vitamins, and supplements). Call your primary care provider before taking any new medicines (including over- the-counter medicines, vitamins, and supplements), because some of these may interact with your current medications, or may make your symptoms worse. Tell your primary care provider if you cannot afford your medications. Activity: You can do normal everyday activities as your body allows. Take rest breaks if you feel tired. Do not overexert. Stop activity if you have pain, shortness of breath or feel dizzy. Follow-up appointments: Make an appointment with your primary care physician within one week of discharge. A copy of this summary will be sent to them. Every time you see your primary care physician, or any other doctor, bring your medication list, and a list of questions. CONTACT YOUR PRIMARY CARE PROVIDER if you experience any of the following: Shortness of breath or difficulty breathing Fevers or chills Feeling tired with normal activity or experiencing dizziness or fainting Difficulty following your treatment plan, or difficulty taking medications CALL 911 OR GO TO THE EMERGENCY DEPARTMENT if you experience any of the following: Severe abdominal pain or nausea/vomiting Severe chest pain, or chest pain that radiates (moves) to your jaw or arm Sudden, severe shortness of breath or difficulty breathing Thank you for allowing us to participate in your care. Total Time Total Time Spent Total Time Spent (In Minutes): Time spend day of discharge 40 minutes including direct patient care, medication reconciliation, documentation, review of labs and images, and coordination of care. Coding Diagnoses Acute confusion R41.0 Glaucoma, pigmentary H40.1390 Hypertensive kidney disease with CKD stage III I12.9; N18.3 ASCVD (arteriosclerotic cardiovascular disease) I25.10
== END 2023-11-16 19:56 | disposition home or self-care (01) ==
LOC: SUATTDRO → ED 05:11 → 2N 05:11